=== PATIENT | male | born 1955 | race Caucasian/White ===

== ENCOUNTER → 2016-05-30 | Outpatient (CLI) | payer OTHER ==
[~2016-05-30] MED LIST: ASPI-232 PO; BIOT1CAP8 PO; CEPH500C2 PO; CHOL20005 PO; CHRO1TAB2 PO; CILO100T PO; CIPR1TAB11 PO; CLB/200 PO; CLOP1TAB5 PO; CLX20 PO; DOCU-94 PO; FAMO20TA9 PO; FURO40TA3 PO; HYDR-5688 PO; INSDGI SC; ISOS30TA35 PO; MAGN500T3 PO; METO-551 PO; MULT-351 PO; MULT60CA PO; NTRGSL/4 UT; NVLGI SC; OMEG500C2 PO; SIMV80TA2 PO; TRAM-453 PO; VALS40TA2 PO
[2016-05-30 14:41] LABS: BASO % 0.5 %; BASO ABS # 0.03 K/uL (0-0.2); COMPLETE YES; EOS % 2.7 %; HEMATOCRIT 33.7 % (42-52); IG% 0.2 %; LYMPH % 29.6 %; LYMPH ABS # 1.72 K/uL (1.2-3.4); MEAN CELL VOLUME 88.7 fL (80-100); MEAN CORPUSCULAR HEMOGLOBIN 31.1 pg (25-34); MEAN PLATELET VOLUME 9.7 fL (7.4-10.4); MONO % 9.6 %; NEUT % 57.4 %; PLATELET COUNT 202 K/uL (130-400); WHITE BLOOD COUNT 5.82 K/uL (4.8-10.8)
[2016-05-30 14:55] LABS: ALT/SGPT 36 U/L (12-78); BLOOD UREA NITROGEN 20 mg/dl (7-18); BUN/CREATININE RATIO 14.1 (10-20); CALCIUM 9.2 mg/dl (8.5-10.1); CARBON DIOXIDE 24 mmol/L (21-32); CHLORIDE 108 mmol/L (98-107); CHOLESTEROL 128 mg/dl (0-200); GLUCOSE 145 mg/dl (70-99); MAGNESIUM 1.8 mg/dl (1.8-2.4); POTASSIUM 4.4 mmol/L (3.5-5.1); SODIUM 143 mmol/L (136-145)
[2016-05-30 15:12] LABS: ALB/GLOB RATIO 1.1 (0.9-2); ALKALINE PHOSPHATASE 125 U/L (45-117); AST/SGOT 19 U/L (15-37); CHOLESTEROL/HDL RATIO 2.5; HDL CHOLESTEROL 51 mg/dl; LDL CHOLESTEROL CALCULATED 60 mg/dl; TRIGLYCERIDES 83 mg/dl (0-150); VERY LOW DENSITY LIPOPROT CALC 17 mg/dl
[2016-05-30 15:16] LABS: URINE PROTIEN/CREAT RATIO 0.7 (0-0.2); URINE TOTAL PROTEIN 78.7 mg/dl (0-11.9)
[2016-05-31 06:33] LABS: ESTIMATED AVERAGE GLUCOSE 131 mg/dl; HA1C FLAG Normal (Normal)
--- NOTE | 2016-06-03 12:54 | CODING QUERY MEDICAL NECESSITY ---
SUPPORTING DIAGNOSIS NEEDED Dr. Bradshaw, A supporting diagnosis is required for the test/procedure performed on this patient in order for us to be reimbursed by the patient's insurance. Please provide a supporting diagnosis for the following test/procedure listed below next to the test name along with your signature. *If there is no additional diagnosis for this patient that would support the following test/procedure please document that below next to the test/procedure. Test(s)/Procedure(s) that require a supporting diagnosis: * ([id number]) B12 VITAMIN LEVEL DIAGNOSIS: DATE OF SERVICE: 05/30/16 Provider Signature: Date: Thank you Herbert Wynn [facility] Information Management Once completed, please kindly fax back to [phone] For questions please call [phone]
== END | disposition home or self-care (01) ==
LOC: C.LAB1850 13:27
PROVIDERS: ATTEND Internal Medicine
DX: E11.8 Type 2 diabetes mellitus with unspecified complications (principal); N18.3 Chronic kidney disease, stage 3 (moderate); Z12.5 Encounter for screening for malignant neoplasm of prostate; Z11.59 Encounter for screening for other viral diseases; E55.9 Vitamin D deficiency, unspecified; D64.9 Anemia, unspecified; R53.83 Other fatigue

== ENCOUNTER → 2016-06-21 | Day surgery (SDC) | payer OTHER ==
[2016-06-13 13:58] VITALS: Ht 175.3 cm; Wt 129.6 kg
[~2016-06-21] VITALS: Ht 175.3 cm; Wt 129.6 kg
[~2016-06-21] MED LIST changes: -ASPI-232 PO; +ATROPINE SULFATE 0.1 MG/ML 5ML SYR IV PRN; +CEFAZOLIN 3000 MG/65 ML D5W IV SCH; -CILO100T PO; -CLOP1TAB5 PO; +EpHEDrine SULFATE INJ 50 MG/ML AMP IV PRN; +FENTANYL CITRATE INJ 50 MCG/1 ML 2 ML VIAL IV PRN; +FENTANYL CITRATE INJ 50 MCG/1 ML 2 ML VIAL ONE; +HYDROCODONE/ACETAMOPHEN 5/325MG TAB PO PRN; +LACTATED RINGER'S 1000ML 1,000 ML IV SCH; +LIDOCAINE HCL 1% 20 ML VIAL ONE; +LIDOCAINE HCL 2% 2 ML VIAL (20MG/ML) ONE; +MIDAZOLAM HCL 1 MG/ML 2ML VIAL ONE; -OMEG500C2 PO; +ONDANSETRON INJ 2 MG/ML 2 ML VIAL IV PRN; +PROPOFOL IV EMULSION 10 MG/ML 20 ML VIAL IV ONE; +SODIUM CHLORIDE 0.9% 1000ML 1,000 ML IV SCH
--- NOTE | 2016-06-21 07:53 | History & Physical Bridge - SC ---
H&P Re-Evaluation Bridge Note: I have examined the patient, reviewed the History & Physical and in the interval since the performance of the History & Physical I have noted the following changes of clinical significance: No changes noted
--- NOTE | 2016-06-21 08:42 | [facility] Post Operative Brief Note ---
Immediate Operative Summary Operative Date Jun 21, 2016. Pre-Operative Diagnosis Sebaceous cyst back (3cm) Post-Operative Diagnosis same Procedure(s) Performed Back, Sebaceous Cyst (3CM) Excision Surgeon Dr Mcintosh Boiler Welder Surgeon(s) 0 Estimated Blood Loss 15 ml Findings scar tissue from prior inflammation Specimens A. Sebaceous cyst (3 cm) back Anesthesia local/ sedation Complication(s) None Disposition Recovery Room / PACU
--- NOTE | 2016-06-21 08:44 | Discharge Instructions-SurgCtr ---
Discharge Instructions Visit Reason for Visit: 3 Cm Sebaceous Cyst - Back Discharge Discharge Diagnosis / Problem: princess cyst Discharge Goals Goal(s): Decrease discomfort, Improve function Medications Stopped Medications Name(s): PLAVIX, ASPIRIN, CILOSTAZOL, FISH OIL. LAST DOSES A WEEK AGO. Activity Recommendations Activity Limitations: as noted below Lifting Limitations: no more than 25 pounds Exercise/Sports Limitations: until after follow-up appointment May Resume Sexual Activity: when tolerated Shower/Bathe: tomorrow Driving or Machine Use: resume 1 day after discharge SPECIAL CARE INSTRUCTIONS: * Cover incisions and change daily for comfort/drainage. * May use ibuprofen for pain as tolerated. * Expect some swelling and bruising. Call your doctor if: * Temperature above 101 degrees * Pain not relieved by pain medicine ordered * There is increased drainage or redness from any incision * You have any unanswered questions or concerns [phone]. FOLLOW UP VISIT: If not already scheduled, please call the office for a follow-up visit. for next week- some suture removal OFFICE PHONE NUMBER: Dr. Mcintosh Office Anesthesia . Post Anesthesia Instructions: If you have had General Anesthesia or IV Sedation: * Do not drive today. * Resume driving when surgeon permits. * Do not make important decisions or sign legal documents today. * Call surgeon for: 1. Temperature elevations greater than 101 degrees F. 2. Uncontrollable pain. 3. Excessive bleeding. 4. Persistent nausea and vomiting. 5. Medication intolerance (nausea, vomiting or rash). * For nausea and vomiting use only clear liquids such as: tea, soda, bouillon until nausea subsides, then gradually increase diet as tolerated. * If you have any concerns or questions, call your surgeon's office. If physician is unavailable and it is an emergency, call 911 or go to the nearest emergency room. . Diet Recommendations Home Diet: resume previous diet Procedures Procedures Performed: Back, Sebaceous Cyst (3CM) Excision Pending Studies Studies pending at discharge: no Medical Emergencies . Who to Call and When: Medical Emergencies: If at any time you feel your situation is an emergency, please call 911 immediately. . Non-Emergent Contact Non-Emergency issues call your: Primary Care Provider, Surgeon . . "Provider Documentation" section prepared by Sergey Mcintosh.
[2016-06-21 08:45] VITALS: TEMP 36.6
--- NOTE | 2016-06-21 08:59 | OPERATIVE REPORT ---
DATE OF OPERATION: 06/21/2016 NAME OF OPERATION: Excision of 3 cm sebaceous cyst from the back. PREOPERATIVE DIAGNOSIS: Sebaceous cyst. POSTOPERATIVE DIAGNOSIS: Same. STAFF SURGEON: Dr. Mcintosh. ANESTHESIA: Local with sedation. PROCEDURE: The patient was brought in the operating room and placed on the operating table in the prone position. His back was prepped and draped in usual fashion around a sebaceous cyst. 1% plain lidocaine was used to anesthetize the skin and subcutaneous tissue. An elliptical incision was made approximately 4-5 cm around this area, removing an ellipse of skin and then the cyst was excised from the deep tissue. There was significant scar tissue from prior inflammation. After appropriate hemostasis, the deep tissue was reapproximated using 2-0 chromic catgut suture, then the skin reapproximated using 3-0 nylon suture. Dressing applied and the patient transferred to recovery room in stable condition. I attest to the content of the Intraoperative Record and any orders documented therein. Any exceptio ns are noted below.
[2016-06-21 09:04] VITALS: BP 149/82; PULSE 62; O2SAT 98
--- NOTE | 2016-06-21 09:10 | Anesthesia Progress Nt - [facility] ---
Anesthesia Post Op Note Date & Time Jun 21, 2016 at 09:10 Vital Signs Pain Intensity: 0 Vital Signs Past 12 Hours Date Time Temp Pulse Resp B/P Pulse Ox O2 Delivery O2 Flow Rate FiO2 06/21/16 09:04 62 18 149/82 98 Room Air 06/21/16 08:45 36.6 67 16 121/73 96 Room Air 06/21/16 07:11 36.9 67 18 172/89 97 Room Air Notes Mental Status: alert / awake / arousable, participated in evaluation Pt Amnestic to Procedure: Yes Nausea / Vomiting: adequately controlled Pain: adequately controlled Airway Patency, RR, SpO2: stable & adequate BP & HR: stable & adequate Hydration State: stable & adequate Anesthetic Complications: no major complications apparent
== END | disposition home or self-care (01) ==
LOC: X.SURG 06:56
PROVIDERS: ATTEND Surgery
DX: L72.3 Sebaceous cyst (principal); E11.9 Type 2 diabetes mellitus without complications

== ENCOUNTER → 2016-06-24 | Outpatient (CLI) | payer OTHER ==
[~2016-06-24] VITALS: Ht 175.3 cm; Wt 131.4 kg
[~2016-06-24] MED LIST changes: -ATROPINE SULFATE 0.1 MG/ML 5ML SYR IV PRN; -CEFAZOLIN 3000 MG/65 ML D5W IV SCH; -EpHEDrine SULFATE INJ 50 MG/ML AMP IV PRN; -FENTANYL CITRATE INJ 50 MCG/1 ML 2 ML VIAL IV PRN; -FENTANYL CITRATE INJ 50 MCG/1 ML 2 ML VIAL ONE; -HYDROCODONE/ACETAMOPHEN 5/325MG TAB PO PRN; -LACTATED RINGER'S 1000ML 1,000 ML IV SCH; -LIDOCAINE HCL 1% 20 ML VIAL ONE; -LIDOCAINE HCL 2% 2 ML VIAL (20MG/ML) ONE; -MIDAZOLAM HCL 1 MG/ML 2ML VIAL ONE; -ONDANSETRON INJ 2 MG/ML 2 ML VIAL IV PRN; -PROPOFOL IV EMULSION 10 MG/ML 20 ML VIAL IV ONE; -SODIUM CHLORIDE 0.9% 1000ML 1,000 ML IV SCH
[2016-06-24 15:35] VITALS: BP 156/95; PULSE 65; Ht 175.3 cm; Wt 131.4 kg
== END | disposition home or self-care (01) ==
LOC: C.NEUR 13:49
PROVIDERS: ATTEND Internal Medicine Pulmonary Disease
DX: G47.31 Primary central sleep apnea (principal); G47.33 Obstructive sleep apnea (adult) (pediatric)

== ENCOUNTER → 2016-08-26 | Outpatient (CLI) | payer OTHER ==
[~2016-08-26] MED LIST changes: -CEPH500C2 PO; -CIPR1TAB11 PO
[2016-08-26 16:57] LABS: BASO % 0.7 %; BASO ABS # 0.04 K/uL (0-0.2); COMPLETE YES; EOS % 2.8 %; HEMATOCRIT 36.7 % (42-52); LYMPH % 29.4 %; LYMPH ABS # 1.57 K/uL (1.2-3.4); MEAN CORPUSCULAR HEMOGLOBIN 30.1 pg (25-34); MEAN CORPUSCULAR HGB CONC 33.5 g/dl (32-36); MEAN PLATELET VOLUME 9.8 fL (7.4-10.4); MONO % 9.7 %; NEUT % 57.4 %; PLATELET COUNT 198 K/uL (130-400); RED BLOOD COUNT 4.08 M/uL (4.7-6.1); WHITE BLOOD COUNT 5.34 K/uL (4.8-10.8)
[2016-08-26 16:59] LABS: URINE APPEARANCE CLEAR (CLEAR); URINE BILIRUBIN NEG (NEG); URINE COLOR YELLOW; URINE NITRITE NEG (NEG); URINE SPECIFIC GRAVITY 1.013 (1.000-1.030); UROBILINOGEN NEG (NEG); ZZUR CULT IF INDIC CLEAN CATCH NO
[2016-08-26 17:01] LABS: MANUAL MICROSCOPIC REQUIRED? NO; REVIEW REQ? NO
[2016-08-26 17:08] LABS: BLOOD UREA NITROGEN 28 mg/dl (7-18); CALCIUM 8.6 mg/dl (8.5-10.1); CARBON DIOXIDE 25 mmol/L (21-32); CHLORIDE 111 mmol/L (98-107); GLUCOSE 191 mg/dl (70-99); MAGNESIUM 2.2 mg/dl (1.8-2.4); POTASSIUM 4.7 mmol/L (3.5-5.1); SODIUM 145 mmol/L (136-145)
[2016-08-26 17:23] LABS: URINE PROTIEN/CREAT RATIO 1.1 (0-0.2); URINE TOTAL PROTEIN 62.2 mg/dl (0-11.9)
== END | disposition home or self-care (01) ==
LOC: C.LAB1850 14:34
PROVIDERS: ATTEND Internal Medicine Nephrology
DX: N18.3 Chronic kidney disease, stage 3 (moderate) (principal)

== ENCOUNTER → 2016-12-16 | Outpatient (CLI) | payer OTHER ==
[2016-12-17 08:13] LABS: ESTIMATED AVERAGE GLUCOSE 128 mg/dl; HA1C FLAG Normal (Normal)
== END | disposition home or self-care (01) ==
LOC: C.LAB1850 15:13
PROVIDERS: ATTEND Physician Assistant
DX: E11.8 Type 2 diabetes mellitus with unspecified complications (principal)

== ENCOUNTER → 2017-01-18 | Outpatient (CLI) | payer OTHER ==
[~2017-01-18] MED LIST changes: -HYDR-5688 PO
[2017-01-18 15:49] LABS: CHOLESTEROL/HDL RATIO 2.9; THYROID STIMULATING HORMONE 1.99 uIu/ml (0.300-4.500)
== END | disposition home or self-care (01) ==
LOC: C.LAB1850 13:42
PROVIDERS: ATTEND Physician Assistant
DX: E11.8 Type 2 diabetes mellitus with unspecified complications (principal)

== ENCOUNTER → 2017-02-28 | Outpatient (CLI) | payer OTHER ==
[2017-02-28 16:40] LABS: BASO % 0.6 %; BASO ABS # 0.03 K/uL (0-0.2); COMPLETE YES; EOS % 3.9 %; HEMATOCRIT 37.8 % (42-52); IG% 0.2 %; LYMPH % 34.9 %; LYMPH ABS # 1.89 K/uL (1.2-3.4); MEAN CELL VOLUME 90.2 fL (80-100); MEAN CORPUSCULAR HEMOGLOBIN 30.3 pg (25-34); MEAN CORPUSCULAR HGB CONC 33.6 g/dl (32-36); MEAN PLATELET VOLUME 9.7 fL (7.4-10.4); MONO % 10.2 %; NEUT % 50.2 %; PLATELET COUNT 218 K/uL (130-400); RED BLOOD COUNT 4.19 M/uL (4.7-6.1); WHITE BLOOD COUNT 5.41 K/uL (4.8-10.8)
[2017-02-28 17:15] LABS: BLOOD UREA NITROGEN 17 mg/dl (7-18); CARBON DIOXIDE 26 mmol/L (21-32); CHLORIDE 108 mmol/L (98-107); CREATININE 1.56 mg/dl (0.60-1.40); GLUCOSE 113 mg/dl (70-99); MAGNESIUM 2.1 mg/dl (1.8-2.4); POTASSIUM 4.5 mmol/L (3.5-5.1); SODIUM 142 mmol/L (136-145)
[2017-02-28 17:16] LABS: PHOSPHORUS 3.3 mg/dl (2.5-4.9)
[2017-02-28 17:30] LABS: URINE APPEARANCE CLEAR (CLEAR); URINE BILIRUBIN NEG (NEG); URINE COLOR YELLOW; URINE EPITHELIAL CELL AUTO 0-5 /lpf (0-5); URINE NITRITE NEG (NEG); URINE SPECIFIC GRAVITY 1.016 (1.000-1.030); UROBILINOGEN NEG (NEG); ZZUR CULT IF INDIC CLEAN CATCH NO
[2017-02-28 17:34] LABS: MANUAL MICROSCOPIC REQUIRED? NO; REVIEW REQ? NO
[2017-02-28 17:42] LABS: URINE PROTIEN/CREAT RATIO 0.6 (0-0.2); URINE TOTAL PROTEIN 76.7 mg/dl (0-11.9)
== END | disposition home or self-care (01) ==
LOC: C.LAB1850 15:47
PROVIDERS: ATTEND Internal Medicine Nephrology
DX: N18.3 Chronic kidney disease, stage 3 (moderate) (principal)

== ENCOUNTER 2017-04-15 08:53 | Inpatient (IN) | payer OTHER ==
[~2017-04-15] VITALS: Ht 175.3 cm; Wt 132.0 kg
[2017-04-15] MEDS ORDERED: SODIUM CHLORIDE 0.9% 500ML 500 ML IV STA (09:16)
[2017-04-15] MEDS ORDERED: ACETAMINOPHEN IV 100 ML IV STA (09:16)
[2017-04-15] MEDS ORDERED: MoRPHine SULFATE 4 MG/ML 1 ML CARP\\VIAL IV STA ×2 (09:16→11:52)
[2017-04-15] MEDS ORDERED: LIDOCAINE/EPINEPHRINE 1% 20 ML VIAL INFIL ONE (09:30)
[2017-04-15] MEDS ORDERED: OPTIRAY 320 IV PRN (09:30)
--- NOTE | 2017-04-15 09:41 | EMERGENCY ROOM VISIT NOTE ---
History First contact with patient: 09:05 Chief Complaint: INFECTION Stated Complaint: ABCESS X2 History of Present Illness The patient is a 62 year old male who presents to the Emergency Room with complaints of abscess on his back that started 3-4 days ago. Patient states that he has had an abscess on his upper back approximately 6 weeks ago that was drained and treated by his PCP, given 10 days of Augmentin which he completed. He states that this cleared up well, however the abscess return to the same location, and now he also has a large area of swelling, redness, and pain on his lower back. The abscess on his upper back has been draining today and he has also had fevers of 102.5 and chills starting today. He does also feel that his heartbeat has been faster than usual. He has not taken anything for pain today, but states he does take tramadol 3 times a day for chronic pain. He is a diabetic on insulin. He denies any known history of MRSA and does not think that any wound cultures were taken from his previous abscess 6 weeks ago. He denies any headaches, vision changes, neck pain, chest pain, shortness of breath , abdominal pain, diarrhea or constipation, vomiting, dysuria or urinary frequency, or rash. Review of Systems A complete 10 point review of systems was reviewed with the patient with pertinent positives and negatives as per history of present illness. All else were negative. Past Medical/Surgical History Medical Problems: (1) Allergy To Latex (2) Aortocoronary Bypass (3) Chronic Kidney Disease, Unspecified (4) Circulatory Disease Nos (5) Coronary Atherosclerosis Of [place] Coronary Vessel (6) fever, multiple abscess, possible uncontrtolled DM (7) Hx-Venous Thrombosis&Embolism (8) Hypertension Nos (9) Old Myocardial Infarct (10) Sebaceous Cyst (11) Vitamin D Deficiency Nos Surgical Problems: (1) Stented coronary artery Social History Smoking Status: Former Smoker Drug Use: none Marital Status: other Housing Status: unknown Occupation Status: disabled Current/Historical Medications Scheduled Aspirin (Aspirin 81), 81 MG PO DAILY Atorvastatin (Lipitor), 80 MG PO DAILY Biotin (Biotin), 1 CAP PO DAILY AFTERNOON Celecoxib (CeleBREX), 200 MG PO QAM Cholecalciferol (Vitamin D3), 2,000 UNITS PO DAILY AFTERNOON Chromium (Chromium), 2,000 MCG PO DAILY AFTERNOON Cilostazol (Pletal), 100 MG PO BID Citalopram (Citalopram Hydrobromide), 20 MG PO QAM Clopidogrel (Plavix), 75 MG PO QAM Famotidine (Pepcid), 20 MG PO BID Furosemide (Lasix), 40 MG PO QAM Insulin Aspart (Novolog Flexpen), 1 DOSE SQ UD Insulin Detemir (Levemir Flextouch), 35 UNITS SQ QAM Insulin Detemir (Levemir Flextouch), 40 UNITS SQ QPM Isosorbide Mononitrate Ext Rel (Imdur Ext Rel), 60 MG PO QAM Magnesium Gluconate (Magnesium Gluconate), 500 MG PO TID Metoprolol Tartrate (Lopressor), 50 MG PO BID Multiple Vitamin (Multi Vitamin Mens), 1 TAB PO QAM Multiple Vitamins W/ Minerals (Preservision Areds 2), 1 CAP PO BID Nitroglycerin (Nitrostat), 0.4 MG UT PRN [place]-3 Fatty Acids (Fish Oil 1200 mg), 1,200 MG PO BID Spironolactone (Aldactone), 25 MG PO DAILY Tramadol Hcl (Ultram), 50 MG PO Q8H Valsartan (Diovan), 40 MG PO DAILY AFTERNOON Scheduled PRN Docusate Sodium (Colace), 1 CAP PO DAILY PRN for Constipation Allergies Reviewed in chart Physical Exam Vital Signs Date Time Temp Pulse Resp B/P (MAP) Pulse Ox O2 Delivery O2 Flow Rate FiO2 04/15/17 13:00 96 Room Air 04/15/17 11:42 75 04/15/17 11:19 75 20 134/70 96 Room Air 04/15/17 09:00 37.4 92 20 168/96 98 Room Air Physical Exam CONSTITUTIONAL: Pleasant and cooperative. No acute distress, nontoxic appearing , however patient is noted to be slightly pale and diaphoretic. Mildly dehydrated. Alert and oriented X 4 with normal affect. HEENT: Normocephalic, atraumatic. Pupils equal, round and reactive to light, EOMI. TMs normal. Pharynx normal. Tacky mucous membranes. NECK: Supple, full active range of motion without discomfort. RESPIRATORY: Clear to auscultation bilaterally with no wheezing, crackles, rhonchi or stridor. Equal expansion bilaterally. CARDIOVASCULAR: Regular rate and rhythm with no murmurs, rubs or gallops. Normal peripheral perfusion. No edema. GASTROINTESTINAL: Soft, nontender, nondistended, obese. Bowel sounds present in all quadrants. MUSCULOSKELETAL: Full range of motion of all joints without discomfort. INTEGUMENTARY: There is an area of erythema, warmth, and tenderness of the mid upper back between shoulder blades, indurated with central fluctuance, purulent drainage noted. There is a large area of erythema, warmth and very tender to the left flank area, indurated but no pointing or fluctuance. NEUROLOGIC: Cranial nerves II-XII grossly intact. No focal neurologic deficits noted. Medical Decision & Procedures ER Provider Diagnostic Interpretation: CT OF THE ABDOMEN AND PELVIS WITH CONTRAST CLINICAL HISTORY: Left flank/back abscess and cellulitis. COMPARISON STUDY: Renal ultrasound May 12, 2015. TECHNIQUE: Following IV administration of 121 mL of Optiray-320, axial images of the abdomen and pelvis were obtained from the lung bases to the proximal femurs. Images were reviewed in the axial, sagittal, and coronal planes. IV contrast was administered without complication. A dose lowering technique was utilized adhering to the principles of ALARA. CT DOSE: 1738.09 mGy.cm FINDINGS: Note is made of a 4.1 x 1.8 cm subcutaneous fluid collection with peripheral enhancement within the left lower back/left flank with moderate adjacent infiltration and associated skin thickening. There is an additional smaller right flank subcutaneous fluid collection shown on axial image 10 of 511 that measures 1.6 cm. This has minimal peripheral enhancement. There is mild multifocal subcutaneous infiltration of the left anterior abdominal wall without associated fluid collection. The liver, spleen, adrenal glands, kidneys and pancreas are unremarkable. There is no biliary or pancreatic ductal dilatation. There is no hydronephrosis. Caliber and wall thickness of small and large bowel are normal. The appendix is normal. There is extensive atherosclerotic plaque of the abdominal aorta which is normal in caliber. Note is made of patent bilateral iliac vein stents. No suspicious osseous lesions are present. IMPRESSION: 1. 4.1 x 1.8 cm subcutaneous fluid collection of the left flank/lower back. This is consistent with an abscess with associated cellulitis. No soft tissue gas. 2. Additional small 1.6 cm suspected subcutaneous abscess of the right flank. 3. Mild multifocal subcutaneous infiltration of the left anterior abdominal wall without associated fluid collection which is nonspecific. Laboratory Results 04/15/17 09:55 Red Blood Count 3.64, Mean Corpuscular Volume 90.7, Mean Corpuscular Hemoglobin 31.6, Mean Corpuscular Hemoglobin Concent 34.8, Mean Platelet Volume 9.8, Neutrophils (%) (Auto) 70.6, Lymphocytes (%) (Auto) 16.2, Monocytes (%) (Auto) 11.0, Eosinophils (%) (Auto) 1.8, Basophils (%) (Auto) 0.3, Neutrophils # (Auto ) 5.02, Lymphocytes # (Auto) 1.15, Monocytes # (Auto) 0.78, Eosinophils # (Auto ) 0.13, Basophils # (Auto) 0.02 04/15/17 09:55 Test 04/15/17 09:55 04/15/17 10:03 04/15/17 10:04 04/15/17 11:30 White Blood Count 7.11 K/uL (4.8-10.8) Red Blood Count 3.64 M/uL (4.7-6.1) Hemoglobin 11.5 g/dL (14.0-18.0) Hematocrit 33.0 % (42-52) Mean Corpuscular Volume 90.7 fL (80-100) Mean Corpuscular Hemoglobin 31.6 pg (25-34) Mean Corpuscular Hemoglobin Concent 34.8 g/dl (32-36) Platelet Count 165 K/uL (130-400) Mean Platelet Volume 9.8 fL (7.4-10.4) Neutrophils (%) (Auto) 70.6 % Lymphocytes (%) (Auto) 16.2 % Monocytes (%) (Auto) 11.0 % Eosinophils (%) (Auto) 1.8 % Basophils (%) (Auto) 0.3 % Neutrophils # (Auto) 5.02 K/uL (1.4-6.5) Lymphocytes # (Auto) 1.15 K/uL (1.2-3.4) Monocytes # (Auto) 0.78 K/uL (0.11-0.59) Eosinophils # (Auto) 0.13 K/uL (0-0.5) Basophils # (Auto) 0.02 K/uL (0-0.2) RDW Standard Deviation 45.7 fL (36.4-46.3) RDW Coefficient of Variation 13.8 % (11.5-14.5) Immature Granulocyte % (Auto) 0.1 % Immature Granulocyte # (Auto) 0.01 K/uL (0.00-0.02) Erythrocyte Sedimentation Rate 17 mm/hr (0-14) Est Creatinine Clear Calc Drug Dose 79.4 ml/min Estimated GFR () 67.8 Estimated GFR (Non- 58.5 BUN/Creatinine Ratio 20.6 (10-20) Calcium Level 8.6 mg/dl (8.5-10.1) Total Bilirubin 0.4 mg/dl (0.2-1) Aspartate Amino Transf (AST/SGOT) 13 U/L (15-37) Alanine Aminotransferase (ALT/SGPT) 24 U/L (12-78) Alkaline Phosphatase 117 U/L (45-117) C-Reactive Protein 2.72 mg/dl (0-0.29) Total Protein 6.9 gm/dl (6.4-8.2) Albumin 3.2 gm/dl (3.4-5.0) Globulin 3.7 gm/dl (2.5-4.0) Albumin/Globulin Ratio 0.9 (0.9-2) Thyroid Stimulating Hormone (TSH) 1.790 uIu/ml (0.300-4.500) Bedside Lactic Acid Venous 1.89 mmol/L (0.90-1.70) Bedside Hemoglobin 10.5 g/dl (14.0-18.0) Bedside Hematocrit 31 % (42-52) Bedside Sodium 139 mEq/L (135-144) Bedside Potassium 4.3 mEq/L (3.3-5.0) Bedside Chloride 107 mEq/L (101-112) Bedside Total CO2 23 mEq/l (24-31) Anion Gap 14.0 mmol/L (16-25) Bedside Blood Urea Nitrogen 28 mg/dl (7-18) Bedside Creatinine 1.3 mg/dl (0.6-1.3) Bedside Glucose (other) 212 mg/dl (70-99) Bedside Ionized Calcium ([place]) 1.11 mmol/l (1.12-1.32) Urine Color YELLOW Urine Appearance CLEAR (CLEAR) Urine pH 5.0 (4.5-7.5) Urine Specific [place] 1.038 (1.000-1.030) Urine Protein 3+ (NEG) Urine Glucose (UA) NEG (NEG) Urine Ketones NEG (NEG) Urine Occult Blood NEG (NEG) Urine Nitrite NEG (NEG) Urine Bilirubin NEG (NEG) Urine Urobilinogen NEG (NEG) Urine Leukocyte Esterase NEG (NEG) Urine WBC (Auto) 0 /hpf (0-5) Urine RBC (Auto) 0-4 /hpf (0-4) Urine Hyaline Casts (Auto) 1-5 /lpf (0-5) Urine Epithelial Cells (Auto) 0-5 /lpf (0-5) Urine Bacteria (Auto) NEG (NEG) Medications Administered Medications (Trade) Dose Ordered Sig/Zeeshan Route Start Time Stop Time Status Last Admin Dose Admin Sodium Chloride 500 ml @ 999 mls/hr Q31M STAT IV 04/15/17 09:16 04/15/17 09:46 DC 04/15/17 10:31 999 MLS/HR Acetaminophen 100 ml @ 400 mls/hr NOW STAT IV 04/15/17 09:16 04/15/17 09:30 DC 04/15/17 10:32 400 MLS/HR Morphine Sulfate (MoRPHine SULFATE INJ) 4 mg NOW STAT IV 04/15/17 09:16 04/15/17 09:24 DC 04/15/17 10:31 4 MG Lidocaine/ Epinephrine (Xylocaine/Epine 1% Inj) 20 ml ONE ONCE INFIL 04/15/17 09:30 04/15/17 09:31 DC 04/15/17 10:32 20 ML Diphenhydramine HCl (Benadryl Inj) 25 mg NOW STAT IV 04/15/17 10:28 04/15/17 10:29 DC 04/15/17 10:39 25 MG Morphine Sulfate (MoRPHine SULFATE INJ) 4 mg NOW STAT IV 04/15/17 11:52 04/15/17 11:53 DC 04/15/17 11:59 4 MG Cefepime HCl 1000 mg/Dextrose 111 ml @ 200 mls/hr NOW STAT IV 04/15/17 12:36 04/15/17 13:09 DC 04/15/17 13:09 200 MLS/HR Vancomycin HCl 2750 mg/Sodium Chloride 555 ml @ 200 mls/hr ONE STAT IV 04/15/17 12:36 04/15/17 15:22 DC 04/15/17 13:24 200 MLS/HR Procedure Incision and Drainage: Abscess on mid upper back and left lower back I discussed risk and benefits of the procedure with the patient, and obtained verbal consent from the patient to perform the procedure. Timeout was performed. 2 abscesses being drained, one on the middle upper back and one on the left lower back. Using chlorhexidine scrub, the areas were cleansed well and allowed to dry (patient has Betadine allergy). The areas were locally anesthetized with 1% lidocaine and epinephrine. Once proper anesthesia was achieved, an incision was made over the most fluctuant area of the abscess with a #11 blade, with large amounts of purulent and bloody drainage expressed. Wound cultures were collected and properly labeled from each abscess. The abscess cavities were probed with hemostats and loculated areas were broken up, with more purulent material expressed. The abscess cavities were flushed with sterile saline, and an iodoform gauze drain with bacitracin coating was inserted into each wound. Sterile dressings were applied to each of the wounds. The patient tolerated the procedure well, with hemostasis achieved. There were no known complications. ECG Indication: diaphoresis Rate (beats per minute): 81 Rhythm: normal sinus Findings: left axis deviation, other (LVH) Change: no significant change (compared to EKG from 06/14/2016) Medical Decision CC: Patient presenting with complaint of abscess/cellulitis and fevers Interpretation of Labs: No leukocytosis, no anemia, hypoglycemia, no other significantly delayed abnormalities, renal function upper limits of normal, but appears better than his baseline, normal liver enzymes. Mildly elevated lactic acid level. UA shows 3+ protein, otherwise negative for infection. Differential Diagnosis: Includes, but not limited to cellulitis, abscess, MRSA, bacteremia, sepsis, intra-abdominal abscess or deep space infection, dehydration , among others. Medication Reconciliation: I attest that I have personally reviewed the patient' s current medication list. Vital signs review: I reviewed the patient's vital signs and interpret them as follows: T: Febrile (38.0 by my check); BP: Hypertensive; HR: Within normal limits; RR: Within normal limits; Pulse Ox: Within normal limits on room air. Blood pressure screening: The patient was found to have an elevated blood pressure and was referred to their primary doctor for recheck and further treatment. Summary: Patient was evaluated at bedside, history and physical exam performed. He is alert and oriented, pleasant and in no acute distress, sitting on the stretcher. Patient was asked to change into a gown for exam. There is area of abscess and surrounding cellulitis on the upper mid back between shoulder blades, fluctuant with purulent drainage noted. There is a large area of induration and erythema noted on the left lower back/ flank area, very tender to palpation, no drainage noted. Patient is noted to be febrile on my exam, given the spreading abscess of multiple locations, I'm concerned for possible bacteremia, MRSA. Patient is an insulin-dependent diabetic. Orders were placed at bedside for labs, UA, lactic acid and blood cultures 2, IV fluid bolus for hydration, IV Tylenol for fever, IV morphine for pain, EKG, CT abdomen/pelvis with IV contrast to evaluate for deep tracking cellulitis/ abscess of the left flank. Patient discussed with Dr. Tran, who agrees with my assessment and plan. Labs reviewed as above, mildly elevated lactic acid level. EKG sinus rhythm with no acute ischemic changes. CT imaging shows a large abscess of the left flank with soft tissue stranding concerning for spreading cellulitis him as well as a third abscess that is not drainable. I&D performed as above with large amount of purulent, foul-smelling drainage expressed. Given patient's multiple abscesses, with fevers and chills, diaphoretic, and is an insulin dependent diabetic, I feel the patient warrants IV antibiotics and close observation. I spoke on the phone with Dr. Haines, hospitalist, who agrees to evaluate patient for admission. Patient reassessed multiple times throughout ED stay, he reports he is feeling somewhat better after pain medications. Vitals remained stable. Patient was updated on all results and plan for admission, he is agreeable to this plan. Patient was stable at time of admission. Head Trauma GCS Score: 15 Medication Reconcilliation Current Medication List: was personally reviewed by me Blood Pressure Screening Patient's blood pressure: Elevated blood pressure (patient being admitted, will defer to hospitalist for further management) Impression Primary Impression: Cellulitis of lower back Additional Impression: Abscess of lower back Departure Information Dispostion Admitted as an inpatient Condition FAIR Referrals RV. Short MD (PCP) Patient Instructions My [facility] Problem Qualifiers
[2017-04-15 10:09] LABS: BASO % 0.3 %; BASO ABS # 0.02 K/uL (0-0.2); COMPLETE YES; EOS % 1.8 %; IG% 0.1 %; LYMPH % 16.2 %; LYMPH ABS # 1.15 K/uL (1.2-3.4); MEAN CELL VOLUME 90.7 fL (80-100); MEAN CORPUSCULAR HEMOGLOBIN 31.6 pg (25-34); MEAN CORPUSCULAR HGB CONC 34.8 g/dl (32-36); MEAN PLATELET VOLUME 9.8 fL (7.4-10.4); NEUT % 70.6 %; PLATELET COUNT 165 K/uL (130-400); RED BLOOD COUNT 3.64 M/uL (4.7-6.1); WHITE BLOOD COUNT 7.11 K/uL (4.8-10.8)
[2017-04-15 10:20] LABS: BUN/CREATININE RATIO 20.6 (10-20); CALCIUM 8.6 mg/dl (8.5-10.1); CREATININE 1.3 mg/dl (0.60-1.40); POTASSIUM 4.1 mmol/L (3.5-5.1)
[2017-04-15 10:23] LABS: ALB/GLOB RATIO 0.9 (0.9-2)
[2017-04-15] MEDS ORDERED: DiphenhydrAMINE HCL 50 MG/ML VIAL IV STA (10:28)
[2017-04-15] MEDS ORDERED: ATOR-26 PO (10:55)
[2017-04-15] MEDS ORDERED: ASPI-435 PO (10:55)
[2017-04-15] MEDS ORDERED: CILO100T PO (10:56)
[2017-04-15] MEDS ORDERED: CLOP1TAB15 PO (10:57)
[2017-04-15] MEDS ORDERED: OMEG5CAP PO (10:58)
[2017-04-15] MEDS ORDERED: ISOS60TA25 PO (10:59)
[2017-04-15] MEDS ORDERED: INSU3INJ3 SQ (11:00)
[2017-04-15] MEDS ORDERED: LVMIPEN SQ (11:00)
[2017-04-15] MEDS ORDERED: NVLGI/PEN SQ (11:03)
[2017-04-15] MEDS ORDERED: SPIR25TA PO (11:05)
--- NOTE | 2017-04-15 11:23 | DIAGNOSTIC IMAGING REPORT ---
CT OF THE ABDOMEN AND PELVIS WITH CONTRAST CLINICAL HISTORY: Left flank/back abscess and cellulitis. COMPARISON STUDY: Renal ultrasound May 12, 2015. TECHNIQUE: Following IV administration of 121 mL of Optiray-320, axial images of the abdomen and pelvis were obtained from the lung bases to the proximal femurs. Images were reviewed in the axial, sagittal, and coronal planes. IV contrast was administered without complication. A dose lowering technique was utilized adhering to the principles of ALARA. CT DOSE: 1738.09 mGy.cm FINDINGS: Note is made of a 4.1 x 1.8 cm subcutaneous fluid collection with peripheral enhancement within the left lower back/left flank with moderate adjacent infiltration and associated skin thickening. There is an additional smaller right flank subcutaneous fluid collection shown on axial image 10 of 511 that measures 1.6 cm. This has minimal peripheral enhancement. There is mild multifocal subcutaneous infiltration of the left anterior abdominal wall without associated fluid collection. The liver, spleen, adrenal glands, kidneys and pancreas are unremarkable. There is no biliary or pancreatic ductal dilatation. There is no hydronephrosis. Caliber and wall thickness of small and large bowel are normal. The appendix is normal. There is extensive atherosclerotic plaque of the abdominal aorta which is normal in caliber. Note is made of patent bilateral iliac vein stents. No suspicious osseous lesions are present. IMPRESSION: 1. 4.1 x 1.8 cm subcutaneous fluid collection of the left flank/lower back. This is consistent with an abscess with associated cellulitis. No soft tissue gas. 2. Additional small 1.6 cm suspected subcutaneous abscess of the right flank. 3. Mild multifocal subcutaneous infiltration of the left anterior abdominal wall without associated fluid collection which is nonspecific. Electronically signed by: Tomy Campos M.D. 04/15/2017 11:21 AM Dictated Date/Time: 04/15/2017 11:10 AM
--- NOTE | 2017-04-15 11:39 | EMERGENCY ROOM VISIT NOTE ---
ED Visit Note First contact with patient: 09:05 I have personally seen and evaluated the patient with the physician welder assistant. I agree with the diagnostic/management decisions and have personally been involved in these decisions and agree with the diagnosis.
[2017-04-15 11:40] LABS: URINE APPEARANCE CLEAR (CLEAR); URINE BILIRUBIN NEG (NEG); URINE COLOR YELLOW; URINE EPITHELIAL CELL AUTO 0-5 /lpf (0-5); URINE NITRITE NEG (NEG); URINE SPECIFIC GRAVITY 1.038 (1.000-1.030); UROBILINOGEN NEG (NEG); ZZUR CULT IF INDIC CLEAN CATCH NO
[2017-04-15 11:41] LABS: MANUAL MICROSCOPIC REQUIRED? NO; REVIEW REQ? NO
[2017-04-15] MEDS ORDERED: CEFEPIME IV 1,000 MG in DEXTROSE 5% 100ML 100 ML IV STA (12:36)
[2017-04-15] MEDS ORDERED: VANCOMYCIN INJ 2,750 MG in SODIUM CHLORIDE 0.9% 500ML 500 ML IV STA (12:36)
[2017-04-15 13:00] VITALS: BP 168/94; PULSE 84; TEMP 36.8; O2SAT 96; Ht 175.3 cm; Wt 132.0 kg
[2017-04-15] MEDS ORDERED: CONSULT PHARMACY STA (13:01)
[2017-04-15] MEDS ORDERED: MAGNESIUM HYDROXIDE SUSP 30 ML UDC PO PRN (13:15)
[2017-04-15] MEDS ORDERED: GLUCOSE 40% GEL 15 GM TUBE PO PRN (13:15)
[2017-04-15] MEDS ORDERED: NITROGLYCERIN 0.4 MG SL PER TAB CHARGE UT PRN (13:15)
[2017-04-15] MEDS ORDERED: DOCUSATE SODIUM 100 MG CAP PO PRN (13:15)
[2017-04-15] MEDS ORDERED: ALUMINUM/MAGNESIUM/SIMETH (MAALOX MAX) 30 ML UDC PO PRN (13:15)
[2017-04-15] MEDS ORDERED: GLUCAGON FOR INJ 1 MG VIAL SQ PRN (13:15)
[2017-04-15] MEDS ORDERED: GLUCOSE 10 TABS/TUBE PO PRN (13:15)
[2017-04-15] MEDS ORDERED: NON-FORMULARY MEDICATION (Biotin 1 CAP) PO SCH (13:15)
[2017-04-15] MEDS ORDERED: DEXTROSE 50% 50 ML SYR IV PRN (13:15)
[2017-04-15] MEDS ORDERED: POLYETHYLENE (MIRALAX) 17 GM PACK PO PRN (13:15)
[2017-04-15] MEDS ORDERED: ONDANSETRON INJ 2 MG/ML 2 ML VIAL IV PRN (13:15)
[2017-04-15] MEDS ORDERED: CHROMIUM PO SCH (13:15)
[2017-04-15] MEDS ORDERED: ACETAMINOPHEN 325 MG TAB PO PRN (13:15)
[2017-04-15 13:27] LABS: ISTAT CREATININE 1.3 mg/dl (0.6-1.3); ISTAT HEMOGLOBIN 10.5 g/dl (14.0-18.0); ISTAT IONIZED CALCIUM 1.11 mmol/l (1.12-1.32)
--- NOTE | 2017-04-15 13:29 | History and Physical ---
History & Physical Date of Service Apr 15, 2017. History & Physical .fever, multiple abscess, possible uncontrolled DM [id number]
[2017-04-15] MEDS ORDERED: HydrALAZINE HCL 20 MG/ML VIAL IV. PRN (13:30)
[2017-04-15] MEDS ORDERED: VANCOMYCIN CONSULT ACTIVE PRN (13:45)
[2017-04-15] MEDS ORDERED: MAGNESIUM GLUCONATE 500 MG PO SCH (14:00)
[2017-04-15 14:27] LABS: C-REACTIVE PROTEIN 2.72 mg/dl (0-0.29); THYROID STIMULATING HORMONE 1.79 uIu/ml (0.300-4.500)
--- NOTE | 2017-04-15 14:55 | HISTORY & PHYSICAL EXAMINATION ---
DATE OF ADMISSION: 04/15/2017 This is a level 3 inpatient admission, 31 minutes. CHIEF COMPLAINT: Fever and abscess in the upper back. HISTORY OF PRESENT ILLNESS: The patient is a 62-year-old white male with a significant past medical history of CKD, peripheral artery disease, aortocoronary bypass, venous thrombosis, hypertension, history of VA, vitamin D deficiency, CAD, stent, insulin-dependent diabetic, sebaceous cyst, coming to the hospital Emergency Room because of the above chief complaint. The patient reports multiple abscesses started 1 week ago in the upper back and left flank area. There was an abscess in the upper back about 1 month ago which was drained by PCP, was given 10 days of Augmentin. He reported that was cleared well; however, the abscess returned in the same location, and now there was larger areas of redness, swelling and pain in the lower back. The abscess in the upper back has started draining today. He was feeling pain and uncomfortable. There was a fever at home 102.5 and feeling chill. Also associated with racing heart. When I interviewed with the patient, he had 1 abscess drained by ED physicians. He got cefepime and vancomycin IV. The report by nurse temperature was 38, when arriving to the Emergency Room, but was not documented, currently has no fever, no chills. Denied runny nose; denies sore throat; denied cough, sputum, shortness of breath. Denied racing heart or lower extremity swellings. Denied nausea, vomiting, abdominal pain, diarrhea, or constipation; denied dysuria, urgency, or frequencies; denied lower extremity swellings; denied facial droop, slurry speeches or local weakness. Denied anywhere limited range of motion. Skin has several different size abscesses in the upper back and lower back. Otherwise, no rash. PAST MEDICAL HISTORY: Include CAD, VA, stent; CKD, peripheral artery disease, venous thrombosis, hypertension; diabetic, insulin-dependent; vitamin D deficiency. SOCIAL HISTORY: Remote smoker, currently does not smoke, more than 13 months ago; denied alcohol abuse disorder, denied illicit drug abuse. The patient is disabled. ALLERGIES: ALLERGY TO ADHESIVE, BACITRACIN, IODINE, LATEX, NEOMYCIN, PREDNISONE MEDICATIONS: Taking at home include biotin 1 tab p.o. daily, Celebrex 200 mg p.o. q.a.m., vitamin D3 one tab p.o. daily, chromium 2000 mcg p.o. daily in the afternoon, Celexa 20 mg p.o. q.a.m., Pepcid 20 mg p.o. b.i.d., Mentax 40 mg p.o. q.a.m., insulin aspart 35 units subQ before meal and Levemir 30 units in the a.m. and 40 units in the p.m., Imdur 30 mg p.o. q.a.m., magnesium gluconate 1 tab p.o. t.i.d., Lopressor 50 mg p.o. b.i.d., multiple vitamin 1 tab p.o. q.a.m., nitroglycerin 0.4 mg p.o. for the chest pain as needed, Zocor 80 mg p.o. at bedtime, tramadol 50 mg p.o. q. 8 hours p.r.n. for pain, Diovan 40 mg p.o. daily in the afternoon, Colace 1 tab p.o. daily as needed for constipation. REVIEW OF SYSTEMS: Please see HPI, otherwise 14 points organized system review were negative. PHYSICAL EXAMINATION: VITAL SIGNS: Temperature is 37.4, pulse 92, respiration rate 20, blood pressure 168/96, pulse ox 98% in room air. GENERAL: The patient is a white male, awake, alert and orientated, pleasant; obesity, BMI 43. No acute distress. HEAD: Normocephalic. EYES: Pupils equal, round responds to light. EARS: Ear was normal. NOSE: Normal. NECK: Supple. MOUTH: Moist mucous membranes. LUNGS: Bilateral lungs decreased breathing sounds. There was no wheezing, rhonchi or crackles. HEART: Regular rhythm S1, S2, has no murmur, no edema. ABDOMEN: Soft, nontender. Bowel sound was positive. GENITOURINARY AND RECTAL: Deferred. Bilateral CVA was nontender. MUSCULOSKELETAL: There was full range of motion without uncomfortable. SKIN: There was one area with erythema and warmth and tenderness in the middle upper back between shoulder blades. Indurated with central fluctuance. There was purulent drainages, ED physician sent culture. LABORATORY STUDIES: WBC 7.1, hemoglobin 11, platelets 165. Sodium 136, potassium 4.1, BUN 27, creatinine 1.3. Random blood glucose 205. Lactic acid 1.8. AST, ALT was normal. UA was highly concentrated, otherwise not remarkable. IMAGING STUDIES: Abdominal CT was done. There was 4.1 x 1.8 cm subcutaneous fluid collections in the left flank and lower back areas, which is consistent with abscess associated with cellulitis. There was additional small 1.6 cm suspicious subcutaneous abscess in the right flank. Multiple mild subcutaneous infiltrations in the left anterior abdominal wall without association with fluid collections. EKG was done in the Emergency Room which was normal sinus rhythm. There was a left ventricular hypertrophy. There were no ST-T phase changes. ASSESSMENT AND PLAN: A 62-year-old white male with the conditions seen below: 1. Multiple abscesses in upper and lower back, one of it had drained in the Emergency Room, associated with local cellulitis. 2. History of abscess in upper back. 3. Insulin-dependent diabetic, possible uncontrolled. 4. Hyperglycemia secondary to uncontrolled diabetic. 5. Possible sepsis with fever at home up to 102.5 and continued to be fever in the Emergency Room, was not documented was 38 degrees associated with elevated lactase. 6. History of coronary artery disease, stent. 7. Dyslipidemia. 8. Peripheral vessel disease. 9. Gastroesophageal reflux disease. 10. Congestive heart failure.. PLAN: 1. Because of the above conditions, patient will be full admission. I believe need to have 2-night hospital stay. Has sent blood culture, wound culture as well. will start broad spectrum antibiotics, but I believe vancomycin should be good enough, will follow up culture results cont antibiotics. Will have wound care consult and consult wound surgeons because of possibly developing abscess in upper back. Check hemoglobin A1c, diet for diabetic and insulin sliding scale, continue home dose of Levemir. Nutrition consultation because of obesity and possible uncontrolled diabetic. 2. History of coronary dyslipidemia, hypertension, GERD, we will continue home medication. 3. Possible history of CHF. There was no sign of decompensation. We will continue current medicine such as beta america, RUTH inhibitor and Lasix. 4. History of cardiac catheterization, history of CABGs, currently stable. 5. History of peripheral artery disease has stent in the legs. Continue current medications such as Plavix. Gi and DVT px MTDD
[2017-04-15] MEDS ORDERED: PANTOprazole SOD 40 MG TAB PO STA (15:19)
[2017-04-15 16:29] LABS: PROTHROMBIN TIME (PATIENT) 10.5 SECONDS (9.0-12.0)
--- NOTE | 2017-04-15 17:06 | Pharmacy Progress Note ---
Pharmacy Abx Initial Consult Date of Service Apr 15, 2017. Pharmacy Dosing Scope Date of Consult: 04/15/17 Consultation requested by: Dr. Haines Pharmacy is consulted to initiate Vancomycin IV dosing therapy, order appropriate labs and adjust drug dose/frequency. Subjective The patient is a 62 year old male admitted on Apr 15, 2017 at 13:10. Objective Height (Feet): 5 Height (Inches): 9.00 Weight (Kilograms): 132.000 Vital Signs (Past 12Hrs) Vital Signs Past 12 Hours Date Time Temp Pulse Resp B/P (MAP) Pulse Ox O2 Delivery O2 Flow Rate FiO2 04/15/17 14:36 70 16 119/70 94 Room Air 04/15/17 13:19 72 20 147/74 95 Room Air 04/15/17 13:00 36.8 84 18 168/94 96 Room Air 04/15/17 11:42 75 04/15/17 11:19 75 20 134/70 96 Room Air 04/15/17 09:00 37.4 92 20 168/96 98 Room Air Lab Results (24Hrs) Item Value Date Time Bedside Creatinine 1.3 mg/dl 04/15/17 1004 Laboratory Tests (24 Hours) Test 04/15/17 09:55 04/15/17 14:50 C-Reactive Protein 2.72 mg/dl (0-0.29) H Erythrocyte Sedimentation Rate 17 mm/hr (0-14) H White Blood Count 7.11 K/uL (4.8-10.8) Red Blood Count 3.64 M/uL (4.7-6.1) L Hemoglobin 11.5 g/dL (14.0-18.0) L Hematocrit 33.0 % (42-52) L Mean Corpuscular Volume 90.7 fL (80-100) Mean Corpuscular Hemoglobin 31.6 pg (25-34) Mean Corpuscular Hemoglobin Concent 34.8 g/dl (32-36) Platelet Count 165 K/uL (130-400) Mean Platelet Volume 9.8 fL (7.4-10.4) Neutrophils (%) (Auto) 70.6 % Lymphocytes (%) (Auto) 16.2 % Monocytes (%) (Auto) 11.0 % Eosinophils (%) (Auto) 1.8 % Basophils (%) (Auto) 0.3 % Neutrophils # (Auto) 5.02 K/uL (1.4-6.5) Lymphocytes # (Auto) 1.15 K/uL (1.2-3.4) L Monocytes # (Auto) 0.78 K/uL (0.11-0.59) H Eosinophils # (Auto) 0.13 K/uL (0-0.5) Basophils # (Auto) 0.02 K/uL (0-0.2) Lactic Acid Level 1.0 mmol/L (0.4-2.0) Micro Results Date/Time Source Procedure Growth Status 04/15/17 09:55 Blood Blood Culture Pending Received 04/15/17 09:52 Blood Blood Culture Pending Received 04/15/17 13:27 Skin Back Gram Stain Pending Cat Batch 04/15/17 13:27 Skin Back Wound Culture Pending Cat Batch 04/15/17 10:00 Abscess Back, Lower Gram Stain - Final Resulted 04/15/17 10:00 Abscess Back, Lower Wound Culture Pending Resulted 04/15/17 10:00 Abscess Back, Upper Gram Stain - Final Resulted 04/15/17 10:00 Abscess Back, Upper Wound Culture Pending Resulted Risk Factors for Resistance * Hospitalization for 48 hours or more within the past 90 days * Antimicrobial use within the last 90 days (10 days of augmentin completed) Assessment & Plan Assessment 62 year old male with fever and abscess in the upper back The patient reports multiple abscesses started 1 week ago in the upper back and left flank area. There was an abscess in the upper back about 1 month ago which was drained by PCP, was given 10 days of Augmentin. He reported that was cleared well; however, the abscess returned in the same location. Patient reported a fever at home 102.5 and feeling chill. Plan Vancomycin for treatment of back abscess with drainage. Vancomycin IV * Loading dose: 2,750 mg (20.8 mg/kg) * Estimated Ke = 0.053, T 1/2 = 13 hrs, Vd = 0.7 L/kg * Maintenance dose: 2,000 mg IV (15.1 mg/kg) every 16 hours * Goal trough level for skin & soft tissue : 15 to 20 mcg/mL * Trough level ordered for 04/17/17 @14:30 * A less than traditional dose and/or extended dosing interval has/have been selected due to likelihood of drug accumulation in obese patient/patient with h/ o CKD. Pharmacy will continue to follow and will adjust dose/frequency as necessary. Thank you.
[2017-04-15] MEDS: TRAMADOL HCL 50 MG TAB PO SCH ×2 (17:35→21:15)
[2017-04-15] MEDS: CHOLECALCIFEROL 1000 INTER.UNIT TAB PO SCH (17:36)
[2017-04-15] MEDS: INSULIN ASPART 100 UNITS/ML 3 ML PEN SC SCH ×2 (17:38→20:29)
[2017-04-15] MEDS: ENOXAPARIN 40 MG/0.4 ML SYR SQ SCH (20:25)
[2017-04-15] MEDS: FAMOTIDINE 20 MG TAB PO SCH (20:27)
[2017-04-15] MEDS: METOPROLOL TARTRATE 50 MG TAB PO SCH (20:27)
[2017-04-15] MEDS: CILOSTAZOL 100 MG TAB PO SCH (20:28)
[2017-04-15] MEDS: CEROVITE ADV FORMULA TAB PO SCH (20:30)
[2017-04-15] MEDS: OMEGA-3 (PURIFIED FISH OIL) 1 GM CAP PO SCH (20:30)
[2017-04-15] MEDS: CITALOPRAM 20 MG TAB PO SCH (20:31)
[2017-04-15] MEDS: CeleBREX 200 MG CAP PO SCH (20:32)
[2017-04-15] MEDS: ISOSORBIDE MONONITRATE 60 MG TABCR PO SCH (20:33)
[2017-04-15] MEDS: VALSARTAN 80 MG TAB PO SCH (20:33)
[2017-04-15] MEDS: ATORVASTATIN 40 MG TAB PO SCH (20:34)
[2017-04-15] MEDS: PANTOprazole SOD 40 MG TAB PO SCH (20:34)
[2017-04-15] MEDS: CLOPIDOGREL BISULFATE 75 MG TAB PO SCH (20:34)
[2017-04-15] MEDS: INSULIN DETEMIR FLEXPEN/FLEX TOUCH 100 UNITS/ML 3ML SQ SCH (20:40)
[2017-04-15 20:41] VITALS: BP 187/84; PULSE 79
[2017-04-15] MEDS ORDERED: OMEGA-3 (PURIFIED FISH OIL) 1 GM CAP PO SCH (21:00)
[2017-04-16 00:14] VITALS: O2SAT 94
[2017-04-16 00:39] VITALS: BP 151/95; PULSE 71; TEMP 36.7; O2SAT 97
[2017-04-16] MEDS: TRAMADOL HCL 50 MG TAB PO SCH ×3 (05:02→20:18)
[2017-04-16 06:10] LABS: BASO % 0.1 %; BASO ABS # 0.01 K/uL (0-0.2); COMPLETE YES; EOS % 2.4 %; HEMATOCRIT 32.2 % (42-52); IG% 0.1 %; LYMPH % 21.4 %; LYMPH ABS # 1.51 K/uL (1.2-3.4); MEAN CORPUSCULAR HEMOGLOBIN 30.6 pg (25-34); MEAN CORPUSCULAR HGB CONC 33.2 g/dl (32-36); MEAN PLATELET VOLUME 9.9 fL (7.4-10.4); PLATELET COUNT 161 K/uL (130-400); WHITE BLOOD COUNT 7.07 K/uL (4.8-10.8)
[2017-04-16 06:42] LABS: BUN/CREATININE RATIO 18.2 (10-20); CALCIUM 8.7 mg/dl (8.5-10.1); CREATININE 1.31 mg/dl (0.60-1.40); MAGNESIUM 2.1 mg/dl (1.8-2.4); POTASSIUM 4.7 mmol/L (3.5-5.1)
[2017-04-16 06:46] LABS: CHOLESTEROL/HDL RATIO 2.6
[2017-04-16] MEDS ORDERED: VANCOMYCIN INJ 2,000 MG in SODIUM CHLORIDE 0.9% 500ML 500 ML IV SCH (07:00)
[2017-04-16 07:34] VITALS: BP 113/63; PULSE 72; TEMP 36.2; O2SAT 97
[2017-04-16] MEDS: FAMOTIDINE 20 MG TAB PO SCH ×2 (08:41→20:14)
[2017-04-16] MEDS: METOPROLOL TARTRATE 50 MG TAB PO SCH ×2 (08:41→20:16)
[2017-04-16] MEDS: CILOSTAZOL 100 MG TAB PO SCH ×2 (08:41→20:14)
[2017-04-16] MEDS: OMEGA-3 (PURIFIED FISH OIL) 1 GM CAP PO SCH ×2 (08:42→20:14)
[2017-04-16] MEDS: MULTIVITAMIN TAB PO SCH (08:42)
[2017-04-16] MEDS: ASPIRIN 81 MG ECTAB PO SCH (08:44)
[2017-04-16] MEDS: CEROVITE ADV FORMULA TAB PO SCH ×2 (08:44→20:15)
[2017-04-16] MEDS: FUROSEMIDE 40 MG TAB PO SCH (08:44)
[2017-04-16] MEDS: SPIRONOLACTONE 25 MG TAB PO SCH (08:47)
[2017-04-16] MEDS: INSULIN ASPART 100 UNITS/ML 3 ML PEN SC SCH ×4 (08:53→20:20)
[2017-04-16] MEDS: INSULIN DETEMIR FLEXPEN/FLEX TOUCH 100 UNITS/ML 3ML SQ SCH ×2 (08:57→20:20)
[2017-04-16] MEDS: ATORVASTATIN 40 MG TAB PO SCH (10:07)
[2017-04-16] MEDS: CITALOPRAM 20 MG TAB PO SCH (10:07)
[2017-04-16] MEDS: VALSARTAN 80 MG TAB PO SCH (10:07)
[2017-04-16] MEDS: CLOPIDOGREL BISULFATE 75 MG TAB PO SCH (10:07)
[2017-04-16] MEDS: ISOSORBIDE MONONITRATE 60 MG TABCR PO SCH (10:07)
[2017-04-16] MEDS: CeleBREX 200 MG CAP PO SCH (10:08)
[2017-04-16] MEDS: CHOLECALCIFEROL 1000 INTER.UNIT TAB PO SCH (13:36)
[2017-04-16] MEDS ORDERED: VANCOMYCIN TROUGH ONE (14:30)
[2017-04-16 15:04] VITALS: BP 137/72; PULSE 64; TEMP 36.8; O2SAT 95
[2017-04-16] MEDS ORDERED: CEFTRIAXONE SOD INJ 2,000 MG in DEXTROSE 5% 50ML 50 ML IV SCH (18:00)
[2017-04-16] MEDS: ENOXAPARIN 40 MG/0.4 ML SYR SQ SCH (18:25)
[2017-04-16 20:23] VITALS: BP 163/84; PULSE 71
--- NOTE | 2017-04-16 23:01 | Progress Note ---
Subjective Date of Service: Apr 16, 2017. Subjective Pt evaluation today including: conversation w/ patient, physical exam, chart review, lab review Patient reports ding well. He denies any pain, fever, chills, N/V. Patient reports that the asbces in his back have decreased significantly since he has been here. Px denies history of MRSA. Patient reports multiple episodes of skin asbcesses, and having pilonidal cysts in the past. Problem List Medical Problems: (1) Abscess of lower back Status: Acute (2) Cellulitis of lower back Status: Acute Review of Systems Constitutional: No fever, No chills ENT: No hearing loss Respiratory: No cough, No sputum Cardiac: No chest pain, No orthopnea Abdomen: No pain, No nausea Neurologic: No memory loss, No paralysis Endo: No fatigue Skin: + new/changing skin lesions, No rash, No itch All Other Systems: Reviewed and Negative Medications Current Inpatient Medications Medications (Trade) Dose Ordered Sig/Zeeshan Route Start Time Stop Time Status Last Admin Dose Admin Ioversol (Optiray 320) 125 ml UD PRN IV 04/15/17 09:30 04/19/17 09:29 Enoxaparin Sodium (Lovenox Inj) 40 mg Q24H SQ 04/15/17 19:00 05/15/17 18:59 04/16/17 18:25 40 MG Acetaminophen (Tylenol Tab) 650 mg Q4H PRN PO 04/15/17 13:15 05/15/17 13:14 Al Hydrox/Mg Hydrox/Simethicone (Maalox Max Susp) 15 ml Q4H PRN PO 04/15/17 13:15 05/15/17 13:14 Magnesium Hydroxide (Milk Of Magnesia Susp) 30 ml Q6H PRN PO 04/15/17 13:15 05/15/17 13:14 Polyethylene (Miralax Powder Packet) 17 gm DAILY PRN PO 04/15/17 13:15 05/15/17 13:14 Ondansetron HCl (Zofran Inj) 4 mg Q6H PRN IV 04/15/17 13:15 05/15/17 13:14 Insulin Aspart (novoLOG ASPART) SLIDING SCALE If C... ACHS SC 04/15/17 16:00 05/15/17 15:59 04/16/17 20:20 1 UNITS Glucose (Glucose 40% Gel) 15-30 GRAMS 15 GRAMS... UD PRN PO 04/15/17 13:15 05/15/17 13:14 Glucose (Glucose Chew Tab) 4-8 Tablets 4 Tabl... UD PRN PO 04/15/17 13:15 05/15/17 13:14 Dextrose (Dextrose 50% 50ML Syringe) 25-50ML OF 50% DW IV FOR... UD PRN IV 04/15/17 13:15 05/15/17 13:14 Glucagon (Glucagon Inj) 1 mg UD PRN SQ 04/15/17 13:15 05/15/17 13:14 Aspirin (Ecotrin Tab) 81 mg DAILY PO 04/16/17 08:00 05/16/17 08:59 04/16/17 08:44 81 MG Atorvastatin Calcium (Lipitor Tab) 80 mg DAILY PO 04/16/17 08:00 05/16/17 08:59 04/16/17 10:07 80 MG Celecoxib (CeleBREX CAP) 200 mg QAM PO 04/16/17 08:00 05/16/17 08:59 04/16/17 10:08 200 MG Cilostazol (Pletal Tab) 100 mg BID PO 04/15/17 20:00 05/15/17 20:59 04/16/17 20:14 100 MG Citalopram Hydrobromide (celeXA TAB) 20 mg QAM PO 04/16/17 08:00 05/16/17 08:59 04/16/17 10:07 20 MG Clopidogrel Bisulfate (plAVix TAB) 75 mg QAM PO 04/16/17 08:00 05/16/17 08:59 04/16/17 10:07 75 MG Docusate Sodium (coLACE CAP) 100 mg DAILY PRN PO 04/15/17 13:15 05/15/17 13:14 Famotidine (Pepcid Tab) 20 mg BID PO 04/15/17 20:00 05/15/17 20:59 04/16/17 20:14 20 MG Furosemide (Lasix Tab) 40 mg QAM PO 04/16/17 08:00 05/16/17 08:59 04/16/17 08:44 40 MG Insulin Detemir (Levemir Flexpen/ FlexTouch) 35 units QAM SQ 04/16/17 08:00 05/16/17 08:59 04/16/17 08:57 35 UNITS Insulin Detemir (Levemir Flexpen/ FlexTouch) 40 units QPM SQ 04/15/17 21:00 05/15/17 20:59 04/16/17 20:20 40 UNITS Isosorbide Mononitrate (Imdur Ext Rel Tab) 60 mg QAM PO 04/16/17 08:00 05/16/17 08:59 04/16/17 10:07 60 MG Metoprolol Tartrate (Lopressor Tab) 50 mg BID PO 04/15/17 20:00 05/15/17 20:59 04/16/17 20:16 50 MG Multivitamins (Multivitamin Tab) 1 tab QAM PO 04/16/17 08:00 05/16/17 08:59 04/16/17 08:42 1 TAB Nitroglycerin (Nitrostat Tab) 0.4 mg UD PRN UT 04/15/17 13:15 05/15/17 13:14 Spironolactone (Aldactone Tab) 25 mg DAILY PO 04/16/17 08:00 05/16/17 08:59 04/16/17 08:47 25 MG Tramadol HCl (Ultram Tab) 50 mg Q8H PO 04/15/17 13:15 05/15/17 13:14 04/17/17 05:46 50 MG Valsartan (Diovan Tab) 40 mg DAILY PO 04/16/17 08:00 05/16/17 08:59 04/16/17 10:07 40 MG Cholecalciferol (Vitamin D Tab) 2,000 inter.unit DAILY@1400 PO 04/15/17 15:30 05/15/17 15:29 04/16/17 13:36 2,000 INTER.UNIT Multivitamins/ Minerals (Multivitamin W/ Minerals Tab) 1 tab BID PO 04/15/17 20:00 05/15/17 20:59 04/16/17 20:15 1 TAB Pantoprazole Sodium (Protonix Tab) 40 mg QAM PO 04/16/17 08:00 05/16/17 08:59 04/15/17 20:34 40 MG Fish Oil ([place]-3 (Purified Fish Oil) Cap) 1 gm BID PO 04/15/17 20:00 05/15/17 20:59 04/16/17 20:14 1 GM Ceftriaxone Sodium 2000 mg/ Dextrose 70 ml @ 100 mls/hr Q24H IV 04/16/17 18:00 04/26/17 17:59 04/16/17 18:24 100 MLS/HR Objective Vital Signs Date Time Temp Pulse Resp B/P (MAP) Pulse Ox O2 Delivery O2 Flow Rate FiO2 04/16/17 20:23 71 163/84 (110) 04/16/17 17:00 Room Air 04/16/17 15:04 36.8 64 18 137/72 (93) 95 Room Air 04/16/17 08:00 Room Air 04/16/17 07:34 36.2 72 20 113/63 (80) 97 Room Air 04/16/17 00:39 36.7 71 20 151/95 (113) 97 Room Air 04/16/17 00:14 94 Room Air Physical Exam General Appearance: WD/WN, no apparent distress Neck: supple, no adenopathy Respiratory/Chest: chest non-tender, lungs clear, normal breath sounds Cardiovascular: regular rate, rhythm, no edema, no gallop Abdomen: normal bowel sounds, non tender, soft Extremities: normal range of motion, non-tender Skin: + pertinent finding (2 skin lesions covered uo in dressing. Location is upper-middle thoracic back, and the other is on the left, on his lumbar region) Laboratory Results Last 24 Hours Test 04/16/17 05:45 04/16/17 07:53 04/16/17 11:28 04/16/17 16:27 White Blood Count 7.07 K/uL Red Blood Count 3.50 M/uL Hemoglobin 10.7 g/dL Hematocrit 32.2 % Mean Corpuscular Volume 92.0 fL Mean Corpuscular Hemoglobin 30.6 pg Mean Corpuscular Hemoglobin Concent 33.2 g/dl Platelet Count 161 K/uL Mean Platelet Volume 9.9 fL Neutrophils (%) (Auto) 64.0 % Lymphocytes (%) (Auto) 21.4 % Monocytes (%) (Auto) 12.0 % Eosinophils (%) (Auto) 2.4 % Basophils (%) (Auto) 0.1 % Neutrophils # (Auto) 4.52 K/uL Lymphocytes # (Auto) 1.51 K/uL Monocytes # (Auto) 0.85 K/uL Eosinophils # (Auto) 0.17 K/uL Basophils # (Auto) 0.01 K/uL RDW Standard Deviation 46.5 fL RDW Coefficient of Variation 13.9 % Immature Granulocyte % (Auto) 0.1 % Immature Granulocyte # (Auto) 0.01 K/uL Sodium Level 141 mmol/L Potassium Level 4.7 mmol/L Chloride Level 107 mmol/L Carbon Dioxide Level 27 mmol/L Anion Gap 6.0 mmol/L Blood Urea Nitrogen 24 mg/dl Creatinine 1.31 mg/dl Est Creatinine Clear Calc Drug Dose 78.8 ml/min Estimated GFR () 67.2 Estimated GFR (Non- 57.9 BUN/Creatinine Ratio 18.2 Random Glucose 125 mg/dl Calcium Level 8.7 mg/dl Magnesium Level 2.1 mg/dl Total Bilirubin 0.5 mg/dl Direct Bilirubin 0.1 mg/dl Aspartate Amino Transf (AST/SGOT) 12 U/L Alanine Aminotransferase (ALT/SGPT) 18 U/L Alkaline Phosphatase 106 U/L Total Protein 6.4 gm/dl Albumin 3.0 gm/dl Triglycerides Level 158 mg/dl Cholesterol Level 116 mg/dl HDL Cholesterol 45 mg/dl LDL Cholesterol, Calculated 39 mg/dl VLDL Cholesterol, Calculated 32 mg/dl Cholesterol/HDL Ratio 2.6 Bedside Glucose 110 mg/dl 126 mg/dl 127 mg/dl Test 04/16/17 20:05 Bedside Glucose 153 mg/dl Assessment and Plan 2 skin abcessses S/P I and D in a 62 yo male with h/o of recurrent skin infections Admitted to the MED/SURG floor Initially placed on vanco for possible MRSA. Prelim. culture grew gram neg. bacilli. Was changed to ceftriaxone. will see wound care, likely in AM Lesions appear to have improved significantly. There was concern over sepsis when admitted given that he had a fever per admitting team, but this has subsided. Patient can likely be sent home tomorrow on oral antivioitcs after seeing wound care. 2. History of dyslipidemia, hypertension, GERD, will continue home medication. stable 3. Possible history of CHF. Stable. will continue current medicine such as beta amer[place], RUTH inhibitor and Lasix. 4. History of cardiac catheterization, history of CABGs, currently stable. 5. History of peripheral artery disease has stent in the legs. Continue current medications such as Plavix. 6. Diabetes M. 2: will continue Insulin
[2017-04-17 00:05] VITALS: BP 131/83; PULSE 65; TEMP 36.7; O2SAT 95
[2017-04-17] MEDS: TRAMADOL HCL 50 MG TAB PO SCH (05:46)
[2017-04-17 07:26] VITALS: BP 162/97; PULSE 67; TEMP 37.1; O2SAT 96
[2017-04-17 07:34] LABS: ESTIMATED AVERAGE GLUCOSE 126 mg/dl; HA1C FLAG Normal (Normal)
[2017-04-17 07:47] LABS: CREATININE 1.33 mg/dl (0.60-1.40)
[2017-04-17] MEDS: FAMOTIDINE 20 MG TAB PO SCH (07:47)
[2017-04-17] MEDS: MULTIVITAMIN TAB PO SCH (07:48)
[2017-04-17] MEDS: METOPROLOL TARTRATE 50 MG TAB PO SCH (07:48)
[2017-04-17] MEDS: CEROVITE ADV FORMULA TAB PO SCH (07:48)
[2017-04-17] MEDS: ASPIRIN 81 MG ECTAB PO SCH (07:49)
[2017-04-17] MEDS: VALSARTAN 80 MG TAB PO SCH (07:49)
[2017-04-17] MEDS: ATORVASTATIN 40 MG TAB PO SCH (07:49)
[2017-04-17] MEDS: CLOPIDOGREL BISULFATE 75 MG TAB PO SCH (07:50)
[2017-04-17] MEDS: ISOSORBIDE MONONITRATE 60 MG TABCR PO SCH (07:50)
[2017-04-17] MEDS: SPIRONOLACTONE 25 MG TAB PO SCH (07:50)
[2017-04-17] MEDS: CITALOPRAM 20 MG TAB PO SCH (07:50)
[2017-04-17] MEDS: CeleBREX 200 MG CAP PO SCH (07:51)
[2017-04-17] MEDS: CILOSTAZOL 100 MG TAB PO SCH (07:51)
[2017-04-17] MEDS: OMEGA-3 (PURIFIED FISH OIL) 1 GM CAP PO SCH (07:51)
[2017-04-17] MEDS: PANTOprazole SOD 40 MG TAB PO SCH (07:52)
[2017-04-17] MEDS: FUROSEMIDE 40 MG TAB PO SCH (07:52)
[2017-04-17] MEDS: INSULIN ASPART 100 UNITS/ML 3 ML PEN SC SCH (08:56)
[2017-04-17] MEDS: INSULIN DETEMIR FLEXPEN/FLEX TOUCH 100 UNITS/ML 3ML SQ SCH (08:57)
[2017-04-17] MEDS ORDERED: CEPHALEXIN MONOHYDRATE 500 MG CAP PO ONE (09:45)
[2017-04-17] MEDS ORDERED: KFL500 PO (11:29)
--- NOTE | 2017-04-17 11:34 | Discharge Instructions ---
Discharge Instructions Date of Service Apr 17, 2017. Admission Reason for Admission: Fever,Multiple Abscess Discharge Discharge Diagnosis / Problem: Abscess and Cellulitis Discharge Goals Goal(s): Decrease discomfort, Improve function, Increase independence Activity Recommendations Activity Limitations: resume your previous activity . Instructions / Follow-Up Instructions / Follow-Up Abscess and Skin Infection: Serratia Marcescens - Continue Keflex 500 mg twice a day for 10 days. You had a dose this AM and will only need to take a dose tonight on 04/17 then resume twice a day on 04/18 - You were seen by wound care and our case picker will help set up an appointment to get you established with them for ongoing evaluation and care - Recommend to continue good diabetic control. Your A1c is 6 which shows that your regimen is good and recommend to continue to monitor to reduce infection risk Follow-Up: - Recommend follow-up with wound care and your family doctor in the next 7-10 days - You may continue your previously prescribed medications. No changes were made Current Hospital Diet Patient's current hospital diet: Diabetes Type 2 Diet Discharge Diet Recommended Diet: Diabetes Type 2 Diet Pending Studies Studies pending at discharge: no Laboratory Results Hemoglobin A1c Test 04/16/17 05:45 Range/Units Estimated Average Glucose 126 mg/dl Hemoglobin A1c 6.0 H 4.5-5.6 % Lipid Panel Test 04/16/17 05:45 Range/Units Triglycerides Level 158 H 0-150 mg/dl Cholesterol Level 116 0-200 mg/dl HDL Cholesterol 45 mg/dl Cholesterol/HDL Ratio 2.6 LDL Cholesterol, Calculated 39 mg/dl Medical Emergencies . Who to Call and When: Medical Emergencies: If at any time you feel your situation is an emergency, please call 911 immediately. . Non-Emergent Contact Non-Emergency issues call your: Primary Care Provider Call Non-Emergent contact if: you have a fever, your pain is concerning you, you have any medication questions . . "Provider Documentation" section prepared by Stephanie Henry. . VTE Core Measure Inpt VTE Proph given/why not?: Enoxaparin (Lovenox)SQ
[2017-04-17 12:24] VITALS: BP 162/97; PULSE 67; TEMP 37.1; O2SAT 96
--- NOTE | 2017-04-17 13:47 | Discharge Summary ---
Discharge Summary Date of Service Apr 17, 2017. Discharge Summary Admission Date: Apr 15, 2017 at 13:10 Discharge Date: Apr 17, 2017 Discharge Disposition: Home Principal Diagnosis: Recurrent Abscess and Cellulitis Problems/Secondary Diagnoses: 1. CAD S/P IL and Stent 2. CKD 3. Peripheral Artery Disease 4. T2DM with Peripheral Neuropathy 5. Venous Thrombosis 6. HTN 7. Vit D Deficiency Procedures: CT OF THE ABDOMEN AND PELVIS WITH CONTRAST FINDINGS: Note is made of a 4.1 x 1.8 cm subcutaneous fluid collection with peripheral enhancement within the left lower back/left flank with moderate adjacent infiltration and associated skin thickening. There is an additional smaller right flank subcutaneous fluid collection shown on axial image 10 of 511 that measures 1.6 cm. This has minimal peripheral enhancement. There is mild multifocal subcutaneous infiltration of the left anterior abdominal wall without associated fluid collection. The liver, spleen, adrenal glands, kidneys and pancreas are unremarkable. There is no biliary or pancreatic ductal dilatation. There is no hydronephrosis. Caliber and wall thickness of small and large bowel are normal. The appendix is normal. There is extensive atherosclerotic plaque of the abdominal aorta which is normal in caliber. Note is made of patent bilateral iliac vein stents. No suspicious osseous lesions are present. IMPRESSION: 1. 4.1 x 1.8 cm subcutaneous fluid collection of the left flank/lower back. This is consistent with an abscess with associated cellulitis. No soft tissue gas. 2. Additional small 1.6 cm suspected subcutaneous abscess of the right flank. 3. Mild multifocal subcutaneous infiltration of the left anterior abdominal wall without associated fluid collection which is nonspecific. Consultations: 1. Wound Care Medication Reconciliation New Medications: Cephalexin Monohydrate (Cephalexin) 500 Mg Cap 500 MG PO BID, #19 CAP Take one tablet this evening 04/17 and then resume twice a day on 04/18 Continued Medications: Aspirin (Aspirin 81) 81 Mg Tab 81 MG PO DAILY Atorvastatin (Lipitor) 80 Mg Tab 80 MG PO DAILY, TAB Biotin (Biotin) 1 Mg Cap 1 CAP PO DAILY AFTERNOON Celecoxib (CeleBREX) 200 Mg Cap 200 MG PO QAM, CAP Cholecalciferol (Vitamin D3) 2,000 Unit Tab 2000 UNITS PO DAILY AFTERNOON Chromium (Chromium) 1,000 Mcg Tab 2000 MCG PO DAILY AFTERNOON Cilostazol (Pletal) 100 Mg Tab 100 MG PO BID, TAB Citalopram (Citalopram Hydrobromide) 20 Mg Tab 20 MG PO QAM Clopidogrel (Plavix) 75 Mg Tab 75 MG PO QAM, TAB Docusate Sodium (Colace) 100 Mg Cap 1 CAP PO DAILY PRN for Constipation Famotidine (Pepcid) 20 Mg Tab 20 MG PO BID, TAB Furosemide (Lasix) 40 Mg Tab 40 MG PO QAM, TAB Insulin Aspart (Novolog Flexpen) 100 Units/Ml Inj 1 DOSE SQ UD WITH MEALS, PER SLIDING SCALE Insulin Detemir (Levemir Flextouch) 100 Unit/Ml Inj 35 UNITS SQ QAM Insulin Detemir (Levemir Flextouch) 100 Unit/Ml Inj 40 UNITS SQ QPM Isosorbide Mononitrate Ext Rel (Imdur Ext Rel) 60 Mg Ertab 60 MG PO QAM, TAB Magnesium Gluconate (Magnesium Gluconate) 500 Mg Tab 500 MG PO TID Metoprolol Tartrate (Lopressor) 50 Mg Tab 50 MG PO BID, TAB Multiple Vitamin (Multi Vitamin Mens) 1 Tab Tab 1 TAB PO QAM Multiple Vitamins W/ Minerals (Preservision Areds 2) 1 Cap Cap 1 CAP PO BID Nitroglycerin (Nitrostat) 0.4 Mg Tab 0.4 MG UT PRN, BTL [place]-3 Fatty Acids (Fish Oil 1200 mg) 1 Cap Cap 1200 MG PO BID Spironolactone (Aldactone) 25 Mg Tab 25 MG PO DAILY, TAB Tramadol Hcl (Ultram) 50 Mg Tab 50 MG PO Q8H, TAB PRN PAIN Valsartan (Diovan) 40 Mg Tab 40 MG PO DAILY AFTERNOON, TAB Discharge Exam Review of Systems: Constitutional: No fever, No chills Respiratory: No cough, No shortness of breath Cardiovascular: No chest pain Abdomen: No pain, No nausea, No vomiting, No diarrhea, No constipation Musculoskeletal: No swelling, No calf pain Genitourinary - Male: No dysuria Hematologic / Lymphatic: No abnormal bleeding/bruising Integumentary: + problem reported (erythema improving; no pain at drainage site) Physical Exam: General Appearance: WD/WN, no apparent distress Eyes: sclerae normal ENT: hearing grossly normal Neck: supple, no JVD, trachea midline Respiratory/Chest: lungs clear, normal breath sounds, no respiratory distress, no accessory muscle use Cardiovascular: regular rate, rhythm, no gallop, no murmur Abdomen / GI: normal bowel sounds, non tender, soft Neurologic/Psychiatric: alert, oriented x 3 Skin: + pertinent finding (erythema to mid-back with packed wound) Hospital Course ADMISSION: The patient is a 62-year-old white male with a significant past medical history of CKD, peripheral artery disease, aortocoronary bypass, venous thrombosis, hypertension, history of IL, vitamin D deficiency, CAD, stent, insulin-dependent diabetic, sebaceous cyst, coming to the hospital Emergency Room because of the above chief complaint. The patient reports multiple abscesses started 1 week ago in the upper back and left flank area. There was an abscess in the upper back about 1 month ago which was drained by PCP, was given 10 days of Augmentin. He reported that was cleared well; however, the abscess returned in the same location, and now there was larger areas of redness , swelling and pain in the lower back. The abscess in the upper back has started draining today. He was feeling pain and uncomfortable. There was a fever at home 102.5 and feeling chill. Also associated with racing heart. When I interviewed with the patient, he had 1 abscess drained by ED physicians. He got cefepime and vancomycin IV. The report by nurse temperature was 38, when arriving to the Emergency Room, but was not documented, currently has no fever, no chills. Denied runny nose; denies sore throat; denied cough, sputum, shortness of breath. Denied racing heart or lower extremity swellings. Denied nausea, vomiting, abdominal pain, diarrhea, or constipation; denied dysuria, urgency, or frequencies; denied lower extremity swellings; denied facial droop, slurry speeches or local weakness. Denied anywhere limited range of motion. Skin has several different size abscesses in the upper back and lower back. Otherwise, no rash. HOSPITAL COURSE: Mr. Acevedo was admitted for recurrent abscesses and cellulitis. Cx grew out pansensitive Serratia marcescens. He will be continued on Keflex 500 mg BID x 10 days with outpatient follow-up with wound care and PCP for ongoing evaluation and possible need for further duration of therapy if needed. Packing was placed in abscess that was drained in ED with noted tunneling. Outpatient follow-up was set up. Patient is afebrile and without leukocytosis. i personally examined pt and verified all lozada points w A Carl PAC feeling better back abscesses stable discussed ongoing treatment plan and follow up w wound clinic vitals noted nad breathing unlabored no pallor or icterus serratia abscesses - keflex, stable for home, ongoing PCP and wound follow up Total Time Spent: Greater than 30 minutes This includes examination of the patient, discharge planning, medication reconciliation, and communication with other providers. Discharge Instructions Please refer to the electronic Patient Visit Report (Discharge Instructions) for additional information. Additional Copies To RV. Short MD
[2017-04-17] MEDS ORDERED: VANCOMYCIN TROUGH ONE (14:30)
[2017-04-17] MEDS ORDERED: CEPHALEXIN MONOHYDRATE 500 MG CAP PO SCH (20:00)
== END 2017-04-17 13:00 | disposition home or self-care (01) | DRG 603 ==
LOC: C.EDB 08:55 → C.MS4W 13:10 → ENRESERV 13:48 → EDBEDREQ 14:10
PROVIDERS: ADMIT Hospitalist; ATTEND Hospitalist
PROC: 0W9L3ZZ Drainage of Lower Back, Percutaneous Approach (ICD-10-PCS; principal; 2017-04-15)
DX: L02.212 Cutaneous abscess of back [any part, except buttock and flank] (principal); Z68.41 Body mass index [BMI] 40.0-44.9, adult; L03.312 Cellulitis of back [any part except buttock and flank]; I12.9 Hypertensive chronic kidney disease with stage 1 through stage 4 chronic kidney disease, or unspecified chronic kidney disease; I25.10 Atherosclerotic heart disease of native coronary artery without angina pectoris; N18.9 Chronic kidney disease, unspecified; Z79.82 Long term (current) use of aspirin; Z79.4 Long term (current) use of insulin; I73.9 Peripheral vascular disease, unspecified; E55.9 Vitamin D deficiency, unspecified; E66.9 Obesity, unspecified; Z87.891 Personal history of nicotine dependence; I25.2 Old myocardial infarction; Z95.1 Presence of aortocoronary bypass graft

== ENCOUNTER → 2017-06-13 | Outpatient (CLI) | payer OTHER ==
[~2017-06-13] VITALS: Ht 175.3 cm; Wt 130.5 kg
[~2017-06-13] MED LIST changes: +ASPI-435 PO; +ATOR-26 PO; +CILO100T PO; +CLOP1TAB15 PO; -INSDGI SC; +INSU3INJ3 SQ; -ISOS30TA35 PO; +ISOS60TA25 PO; +LVMIPEN SQ; -NVLGI SC; +NVLGI/PEN SQ; +OMEG5CAP PO; -SIMV80TA2 PO; +SPIR25TA PO
[2017-06-13 16:15] VITALS: BP 146/77; PULSE 81; Ht 175.3 cm; Wt 130.5 kg
== END | disposition home or self-care (01) ==
LOC: C.NEUR 15:10
PROVIDERS: ATTEND Internal Medicine Pulmonary Disease
DX: G47.31 Primary central sleep apnea (principal); G47.33 Obstructive sleep apnea (adult) (pediatric); I25.10 Atherosclerotic heart disease of native coronary artery without angina pectoris; E11.21 Type 2 diabetes mellitus with diabetic nephropathy; I10 Essential (primary) hypertension; I73.9 Peripheral vascular disease, unspecified; Z95.1 Presence of aortocoronary bypass graft; Z90.89 Acquired absence of other organs; Z98.890 Other specified postprocedural states; Z82.49 Family history of ischemic heart disease and other diseases of the circulatory system; Z79.82 Long term (current) use of aspirin; E78.5 Hyperlipidemia, unspecified; Z79.899 Other long term (current) drug therapy

== ENCOUNTER → 2017-06-27 | Outpatient (CLI) | payer OTHER ==
[2017-06-28 06:05] LABS: HEMOGLOBIN A1C 6.2 % (4.5-5.6)
== END | disposition home or self-care (01) ==
LOC: C.LAB1850 14:34
PROVIDERS: ATTEND Physician Assistant
DX: E11.8 Type 2 diabetes mellitus with unspecified complications (principal)

== ENCOUNTER → 2017-08-09 | Day surgery (SDC) | payer OTHER ==
[2017-08-03 15:52] LABS: BASO % 0.5 %; BASO ABS # 0.03 K/uL (0-0.2); EOS % 3.1 %; HEMATOCRIT 35.3 % (42-52); IG# 0.01 K/uL (0.00-0.02); LYMPH % 32.6 %; LYMPH ABS # 2.09 K/uL (1.2-3.4); MEAN CELL VOLUME 90.7 fL (80-100); MEAN CORPUSCULAR HEMOGLOBIN 30.8 pg (25-34); MEAN PLATELET VOLUME 9.8 fL (7.4-10.4); MONO ABS # 0.77 K/uL (0.11-0.59); NEUT % 51.6 %; NEUT ABS # 3.32 K/uL (1.4-6.5); PLATELET COUNT 192 K/uL (130-400); RED CELL DISTRIBUTION WIDTH CV 14.2 % (11.5-14.5); WHITE BLOOD COUNT 6.42 K/uL (4.8-10.8)
[2017-08-03 16:03] LABS: BLOOD UREA NITROGEN 35 mg/dl (7-18); CALCIUM 9.5 mg/dl (8.5-10.1); CARBON DIOXIDE 28 mmol/L (21-32); CREATININE 1.82 mg/dl (0.60-1.40); GLUCOSE 99 mg/dl (70-99); POTASSIUM 4.5 mmol/L (3.5-5.1); SODIUM 139 mmol/L (136-145)
[2017-08-07 08:24] VITALS: BMI 41.0
[~2017-08-09] VITALS: Ht 175.3 cm; Wt 132.6 kg
[~2017-08-09] MED LIST changes: +ATROPINE SULFATE 0.1 MG/ML 5ML SYR IV PRN; +CEFAZOLIN 2000MG IV PUSH 15 ML IV SCH; +CEPH500C2 PO; +EpHEDrine SULFATE INJ 50 MG/ML AMP IV PRN; +FENTANYL CITRATE INJ 50 MCG/1 ML 2 ML VIAL IV PRN; +FENTANYL CITRATE INJ 50 MCG/1 ML 2 ML VIAL ONE; +HYDR-5688 PO; +HYDROCODONE/ACETAMIN 5/325MG TAB PO PRN; +INSU1.2I INJ; -INSU3INJ3 SQ; +KETAMINE HCL INJ 50 MG/ML 10 ML VIAL ONE; +LACTATED RINGER'S 1000ML 1,000 ML IV SCH; +LARYING-O-JET KIT (LTA) ONE; +LIDOCAINE HCL 1% 20 ML VIAL ONE; +LIDOCAINE HCL 2% 2 ML VIAL (20MG/ML) ONE; -LVMIPEN SQ; +MIDAZOLAM HCL 1 MG/ML 2ML VIAL ONE; +ONDANSETRON INJ 2 MG/ML 2 ML VIAL IV PRN; +ONDANSETRON INJ 2 MG/ML 2 ML VIAL ONE; +PROPOFOL IV EMULSION 10 MG/ML 20 ML VIAL IV ONE
[2017-08-09 06:41] VITALS: BP 193/87; PULSE 74; TEMP 37.4; O2SAT 97; Ht 175.3 cm; Wt 132.6 kg
--- NOTE | 2017-08-09 07:47 | [facility] Operative Report ---
Operative Report Operative Date Aug 09, 2017. Pre-Operative Diagnosis Abscess of back Post-Operative Diagnosis Abscess of back, multiple sinus tracts Procedure(s) Performed Incision and Debridement of Cysts on Back, and sinus tracts Surgeon Dr. Sergey Mcintosh Commercial Portfolio Manager Surgeon(s) Nickie Last PA-C Estimated Blood Loss 5 mL Findings draining sinus tracts Specimens Microbiology #1. Infected back cyst Routine C/S, Gram Stain, Anerobic/Aerobic. Sent to lab at 0736. Drains None Anesthesia Type MAC Complication(s) none Disposition Recovery Room / PACU I attest to the content of the Intraoperative Record and any orders documented therein. Any exceptions are noted below.
--- NOTE | 2017-08-09 08:00 | Discharge Instructions ---
Discharge Instructions Date of Service Aug 09, 2017. Visit Reason for Visit: Abscess of Back; Type II Diabetic Discharge Discharge Diagnosis / Problem: draining sinus tracts Discharge Goals Goal(s): Decrease discomfort, Improve function, Improve disease control Activity Recommendations Activity Limitations: as noted below Lifting Limitations: gradually increase as tolerated Exercise/Sports Limitations: until after follow-up appointment May Resume Sexual Activity: when tolerated Shower/Bathe: tomorrow Driving or Machine Use: resume 1 day after discharge Anesthesia . Post Anesthesia Instructions: If you have had General Anesthesia or IV Sedation: * Do not drive today. * Resume driving when surgeon permits. * Do not make important decisions or sign legal documents today. * Call surgeon for: 1. Temperature elevations greater than 101 degrees F. 2. Uncontrollable pain. 3. Excessive bleeding. 4. Persistent nausea and vomiting. 5. Medication intolerance (nausea, vomiting or rash). * For nausea and vomiting use only clear liquids such as: tea, soda, bouillon until nausea subsides, then gradually increase diet as tolerated. * If you have any concerns or questions, call your surgeon's office. If physician is unavailable and it is an emergency, call 911 or go to the nearest emergency room. . Instructions / Follow-Up Instructions / Follow-Up SPECIAL CARE INSTRUCTIONS: * Cover incisions and change daily for comfort/drainage. May need to change outer dressing cover with dry gauze * May use ibuprofen for pain as tolerated. * Expect some swelling and bruising. Call your doctor if: * Temperature above 101 degrees * Pain not relieved by pain medicine ordered * There is increased drainage or redness from any incision * You have any unanswered questions or concerns [phone]. FOLLOW UP VISIT: If not already scheduled, please call the office for a follow-up visit. follow up at wound clinic- they will call you for appt for tomorrow OFFICE PHONE NUMBER: Dr. Mcintosh Office Diet Recommendations Recommended Home Diet: resume previous diet Procedures Procedures Performed: Incision and Debridement of Cysts on Back, and sinus tracts Pending Studies Studies pending at discharge: no Medical Emergencies . Who to Call and When: Medical Emergencies: If at any time you feel your situation is an emergency, please call 911 immediately. . Non-Emergent Contact Non-Emergency issues call your: Primary Care Provider, Surgeon . . "Provider Documentation" section prepared by Sergey Mcintosh. .
--- NOTE | 2017-08-09 08:12 | OPERATIVE REPORT ---
DATE OF OPERATION: 08/09/2017 NAME OF OPERATION: Incision and debridement of multiple sinus tracts on the back. PREOPERATIVE DIAGNOSIS: Draining sinus tracts. POSTOPERATIVE DIAGNOSIS: Same. STAFF SURGEON: Sergey Mcintosh MD. PACKAGING TECHNICIAN: Nickie Last PA-C. ANESTHESIA: Sedation with 1% plain lidocaine. DESCRIPTION OF THE PROCEDURE: The patient was brought into the operating room and placed on the operating room table in the right lateral decubitus position. His back was prepped and draped in usual fashion. In the mid upper back, he had 2 sites of draining purulent fluid with surrounding induration. Using 1% plain lidocaine, the area was anesthetized and then the sinus tract opened widely and debrided. They were relatively deep, approximately 2 cm. After appropriate debridement and hemostasis, Aquacel Ag gauze was placed and then a gauze dressing. The patient was transferred to recovery room in stable condition. My front office assistant helped with prepping, draping, exposure of the wound debridement and closure. I attest to the content of the Intraoperative Record and any orders documented therein. Any exception s are noted below.
--- NOTE | 2017-08-09 08:31 | Anesthesiology Progress Note ---
Anesthesia Post Op Note Date & Time Aug 09, 2017 at 08:31 Vital Signs Pain Intensity: 0 Vital Signs Past 12 Hours Date Time Temp Pulse Resp B/P (MAP) Pulse Ox O2 Delivery O2 Flow Rate FiO2 08/09/17 08:27 125/68 08/09/17 08:26 98/74 08/09/17 08:24 36.7 67 16 125/68 (77) 98 Room Air 08/09/17 08:23 69 15 08/09/17 08:23 69 15 96 08/09/17 08:21 95/66 08/09/17 08:18 70 14 08/09/17 08:18 70 14 99 08/09/17 08:17 72 15 98 08/09/17 08:17 72 15 08/09/17 08:16 103/51 08/09/17 08:12 72 13 99 08/09/17 08:12 72 13 08/09/17 08:11 110/66 08/09/17 08:07 72 17 88/57 99 08/09/17 08:07 71 17 08/09/17 08:02 69 8 08/09/17 08:02 69 8 98 08/09/17 08:01 96/67 08/09/17 07:58 108/61 08/09/17 07:57 70 7 08/09/17 07:57 73 7 97 08/09/17 07:57 36.3 70 18 108/61 (72) 97 Oxymask 10 08/09/17 06:41 37.4 74 18 193/87 (122) 97 Room Air Notes Mental Status: alert / awake / arousable, participated in evaluation Pt Amnestic to Procedure: Yes Nausea / Vomiting: adequately controlled Pain: adequately controlled Airway Patency, RR, SpO2: stable & adequate BP & HR: stable & adequate Hydration State: stable & adequate Anesthetic Complications: no major complications apparent
[2017-08-09 08:46] VITALS: BP 127/61; PULSE 66; TEMP 36.6; O2SAT 93
[2017-08-09 09:33] VITALS: BP 183/86; PULSE 65; TEMP 36.8; O2SAT 96
--- NOTE | 2017-08-11 10:46 | EDITING REQUIRED CODING QUERY ---
DEBRIDEMENT DOCUMENTATION To promote full compliance with coding requirements relating to patient care, physician participation is requested in all cases of candy packer uncertainty. Please assist us with the question(s) below: Please provide further information regarding the debridement performed on 08/09/17. Please place an X in the parenthesis (x). If other, please document the finding: Type of Debridement: (X ) Excisional Debridement- Cutting away necrotic, devitalized tissue or slough to the level of viable tissue using a sharp instrument (i.e. scalpel, scissors, etc.) ( ) Non Excisional Debridement- The removal of necrotic, devitalized tissue or slough by means of scraping, mechanical brushing, flushing, or washing (i.e. irrigation, whirlpool);minor removal of loose fragments. ( ) Other (please specify): Instrument Used: ( ) Scissors (X) Scalpel (X ) Curette ( ) Other (please specify): Depth of Debridement: (X ) Skin (X ) Skin and Subcutaneous Tissue ( ) Skin, Subcutaneous Tissue and Muscle ( ) Skin, Subcutaneous Tissue, Muscle and Bone ( ) Other (please specify): Thank you for your assistance, Blanche Koehler - Cnc Manufacturing Engineer
== END | disposition home or self-care (01) ==
LOC: C.ACU 06:03
PROVIDERS: ATTEND Surgery
DX: L02.212 Cutaneous abscess of back [any part, except buttock and flank] (principal); E11.21 Type 2 diabetes mellitus with diabetic nephropathy; I25.10 Atherosclerotic heart disease of native coronary artery without angina pectoris; J30.9 Allergic rhinitis, unspecified; F32.9 Major depressive disorder, single episode, unspecified; G47.31 Primary central sleep apnea; I50.9 Heart failure, unspecified; K21.9 Gastro-esophageal reflux disease without esophagitis; I12.9 Hypertensive chronic kidney disease with stage 1 through stage 4 chronic kidney disease, or unspecified chronic kidney disease; M79.7 Fibromyalgia; Z91.040 Latex allergy status; Z79.82 Long term (current) use of aspirin; Z79.4 Long term (current) use of insulin; Z87.891 Personal history of nicotine dependence; Z82.49 Family history of ischemic heart disease and other diseases of the circulatory system

== ENCOUNTER → 2017-08-29 | Outpatient (CLI) | payer OTHER ==
[~2017-08-29] MED LIST changes: -ATROPINE SULFATE 0.1 MG/ML 5ML SYR IV PRN; -CEFAZOLIN 2000MG IV PUSH 15 ML IV SCH; -CEPH500C2 PO; -EpHEDrine SULFATE INJ 50 MG/ML AMP IV PRN; -FENTANYL CITRATE INJ 50 MCG/1 ML 2 ML VIAL IV PRN; -FENTANYL CITRATE INJ 50 MCG/1 ML 2 ML VIAL ONE; -HYDROCODONE/ACETAMIN 5/325MG TAB PO PRN; -KETAMINE HCL INJ 50 MG/ML 10 ML VIAL ONE; -LACTATED RINGER'S 1000ML 1,000 ML IV SCH; -LARYING-O-JET KIT (LTA) ONE; -LIDOCAINE HCL 1% 20 ML VIAL ONE; -LIDOCAINE HCL 2% 2 ML VIAL (20MG/ML) ONE; -MIDAZOLAM HCL 1 MG/ML 2ML VIAL ONE; -ONDANSETRON INJ 2 MG/ML 2 ML VIAL IV PRN; -ONDANSETRON INJ 2 MG/ML 2 ML VIAL ONE; -PROPOFOL IV EMULSION 10 MG/ML 20 ML VIAL IV ONE
[2017-08-29 14:40] LABS: BASO % 0.4 %; BASO ABS # 0.02 K/uL (0-0.2); EOS % 3.4 %; EOS ABS # 0.18 K/uL (0-0.5); HEMATOCRIT 35.4 % (42-52); IG# 0.01 K/uL (0.00-0.02); LYMPH % 33.5 %; LYMPH ABS # 1.77 K/uL (1.2-3.4); MEAN CELL VOLUME 89.6 fL (80-100); MEAN CORPUSCULAR HEMOGLOBIN 30.4 pg (25-34); MEAN CORPUSCULAR HGB CONC 33.9 g/dl (32-36); MEAN PLATELET VOLUME 9.5 fL (7.4-10.4); MONO % 12.3 %; MONO ABS # 0.65 K/uL (0.11-0.59); NEUT % 50.2 %; NEUT ABS # 2.65 K/uL (1.4-6.5); PLATELET COUNT 179 K/uL (130-400); RED CELL DISTRIBUTION WIDTH CV 13.7 % (11.5-14.5); RED CELL DISTRIBUTION WIDTH SD 45.3 fL (36.4-46.3); WHITE BLOOD COUNT 5.28 K/uL (4.8-10.8)
[2017-08-29 15:24] LABS: ALBUMIN 3.6 gm/dl (3.4-5.0); BLOOD UREA NITROGEN 23 mg/dl (7-18); CARBON DIOXIDE 26 mmol/L (21-32); CREATININE 1.52 mg/dl (0.60-1.40); GLUCOSE 118 mg/dl (70-99); PHOSPHORUS 3.9 mg/dl (2.5-4.9); SODIUM 141 mmol/L (136-145)
[2017-08-29 15:30] LABS: CHOLESTEROL 103 mg/dl (0-200); LDL CHOLESTEROL CALCULATED 45 mg/dl; TRANSFERRIN 245 mg/dl (200-360)
== END | disposition home or self-care (01) ==
LOC: C.LAB1850 12:51
PROVIDERS: ATTEND Internal Medicine
DX: D64.9 Anemia, unspecified (principal); N18.3 Chronic kidney disease, stage 3 (moderate); E11.22 Type 2 diabetes mellitus with diabetic chronic kidney disease

== ENCOUNTER 2023-03-28 15:52 | Inpatient (IN) ==
--- NOTE | 2023-03-28 16:00 | ED Triage Note ---
Date of Service March 28, 2023 History of Present Illness This patient was briefly evaluated while in triage. An abbreviated physical exam was performed. This patient is a 67-year-old Male who presents to the ED for evaluation of chest pain and shortness of breath that began when he was being wheeled out of his PCP appointment. Feels similar to prior CT. History of 5 bypass surgeries. States is being followed closely for anemia. Most recent hemoglobin was 7 today. Physical Exam CONSTITUTIONAL: in no acute pain or distress, resting comfortably SKIN: pink, warm, dry CARDIAC: regular rate and rhythm RESPIRATORY: in no respiratory distress, lungs clear to auscultation Initial orders for labs and / or imaging were placed and patient was placed in the waiting area until a bed is available. Please see further documentation for the full ED course.
--- NOTE | 2023-03-28 16:39 | XRay Report ---
XR chest 1V not portable HISTORY: Chest pain, nonspecific COMPARISON: Chest 05/31/2022. FINDINGS: No pneumothorax. No pleural effusions. There are low lung volumes. The heart remains mildly enlarged. There are poststernotomy changes again noted. No new focal lung consolidations to suggest pneumonia. No evidence for pulmonary edema. No acute fractures identified. IMPRESSION: Stable mild cardiomegaly. Otherwise, no acute process within the chest. ACT 112: Negative or not required by law. Electronically signed by: Cameron Alexander M.D. 03/28/2023 4:38 PM
[2023-03-28 16:44] LABS: Alanine Aminotransferase 31 U/L (7-52); Albumin Globulin Ratio 1.9 (0.9-2); Albumin Level 4.2 gm/dl (3.4-5.0); Alkaline Phosphatase 80 U/L (34-104); Anion Gap 8 (3-11); Aspartate Aminotransferase 37 U/L (13-39); BUN Creatinine Ratio 21.3 (10-20); Bilirubin,Total 0.3 mg/dl (0.2-1.0); Blood Urea Nitrogen 34 mg/dl (6-23); Calcium 9.1 mg/dl (8.6-10.3); Carbon Dioxide 24 mmol/L (21-32); Chloride 109 mmol/L (98-107); Est GFR (African American) 50.9 ml/min; Est GFR (Non-African American) 43.9 ml/min; Globulin 2.2 gm/dl (2.5-4.0); Glucose 107 mg/dl (70-99(Fasting)); Lipase 56 U/L (11-82); Potassium 4.3 mmol/L (3.5-5.1); Sodium 141 mmol/L (136-145); Total Protein 6.4 gm/dl (6.0-8.3)
[2023-03-28 16:48] LABS: Troponin I High Sensitivity 36.4 pg/ml (0-20)
[2023-03-28 16:50] LABS: INR 1.1 (0.9-1.1); Partial Thromboplastin Ratio 0.8; Partial Thromboplastin Time 23.6 Seconds (21.0-31.0); Prothrombin Time 11.5 Seconds (9.0-12.0)
--- NOTE | 2023-03-28 17:01 | Emergency Department Note ---
Impression & Plan Chest pain, Symptomatic anemia, Acute GI bleeding ED Provider Note NAME: NAILA SQUIRES AGE: 67 SEX: M : 1955 ARRIVES VIA: Walk-In INFORMANT: Patient ED PROVIDER(S): Raz Hernandez DO CHIEF COMPLAINT: chest pain HPI: Patient is a 67-year-old male with a past medical history of PAD, diabetes, CAD with CABG and CHF who presents the ER for exertional chest pain and shortness of breath which has been present for the past 2 weeks getting significantly worse. Currently is asymptomatic. Symptoms resolved with rest. Admits to no belly pain, nausea, vomiting, or diarrhea. His hemoglobin was checked and as an outpatient was low at 7 down from 8 and he was referred in with chest pain and low hemoglobin. He is getting iron infusions. ADDITIONAL HISTORY OBTAINED: Per HPI Chronic Medical/Social Conditions Affecting Care: Per HPI PAST MEDICAL HISTORY:See Below PAST SURGICAL HISTORY:See Below FAMILY HISTORY:See Below SOCIAL HISTORY:See Below HOME MEDICATIONS:See Below ALLERGIES:See Below VITALS:See Below PHYSICAL EXAMINATION: GENERAL: Sitting up in bed, alert, well appearing, well nourished, no distress, non-toxic EYE EXAM: normal conjunctiva. OROPHARYNX: no exudate, no erythema, lips, buccal mucosa, and tongue normal and mucous membranes are moist NECK: supple, no nuchal rigidity, no adenopathy, non-tender LUNGS: Clear to auscultation. Normal chest wall mechanics HEART: no murmurs, S1 normal and S2 normal ABDOMEN: abdomen soft, non-tender, normo-active bowel sounds, no masses, no rebound or guarding. RECTAL: HEM + UPPER EXTREMITIES: upper extremities are grossly normal. LOWER EXTREMITIES: No pitting edema. NEURO EXAM: Normal sensorium, cranial nerves II-XII grossly intact, normal speech, no gross weakness of arms, no gross weakness of legs. MEDICAL DECISION MAKING: Patient is a 67-year-old male who presents to the ER for exertional chest pain and shortness of breath associated with anemia. IV was established blood work was obtained. Labs show no significant leukopenia. Significant anemia at 7 down from 8 although when you review his previous hemoglobins in May of this year he was at 11. Rectally he is heme positive. He was typed and crossed and ordered PRBCs while here in the ER. INR unremarkable. BMP with creatinine 1.6. LFTs bilirubin was unremarkable. Troponin was elevated at 36. Patient was updated at bedside. Although he has EKG changes he is currently pain-free with a positive troponin did not start on heparin as I do favor this likely secondary to a GI bleed causing symptomatic anemia and his exertional chest pain and shortness of breath. External Records Reviewed: Seen by wound care today Dr. Lnider for diabetic foot ulcer Consults/Care Managements Discussions: Per MDM Triage Nursing notes reviewed. Limited review of prior medical records performed Vital Signs: reviewed and remarkable for no significant abnormalities Differential diagnosis: Cardiac ischemia, aortic dissection, pulmonary embolism, pneumothorax, pneumonia, pericarditis, myocarditis, esophageal rupture, GERD, cholecystitis, pancreatitis, musculoskeletal, as well as other pathologies. ER treatment provided: See below Diagnostics interpreted by me include EKG and cardiac monitoring as listed below: -Cardiac Monitoring: An order was placed for continuous cardiac monitoring. The monitor shows a rate of 80 with sinus rhythm. -ECG: Sinus rhythm at [address] depressions in the inferior leads as well as lateral leads which are new in comparison to old QTc 493 -Laboratory studies:Interpreted by me as stated above in MDM and shown below. Imaging studies: Xrays: As interpreted by me: Portable AP upright 1 view of the chest shows no focal CTs show: none Procedures:none Critical Care: I have personally spent 32 minutes of critical care time in the direct management of this patient. This includes bedside care, interpretation of diagnostic studies, and testing, discussion with consultants, patient, and family members, and other required patient management activities. This 32 minutes is in excess of all separately billable procedures. Past Med/Surg History Medical History (Updated 03/28/23 @ 21:52 by Raz Hernandez DO) Vascular disease Acute appendicitis Acute appendicitis Cough Surgical wound, non healing Transient ischemic attack (TIA) "couple years ago" Skin abscess Recurrent infection of skin Episodic lightheadedness CAD (coronary artery disease) s/p CABG x5 (2009) Diabetic neuropathy Osteoarthritis Scoliosis Spinal stenosis Depression Myocardial Infarction 2009 Pseudoaneurysm both femoral arteries, follows with [facility]/Dr. Billings- per cardiology records, the pseudoaneurysm was "treated with prolonged manual pressure" Sleep apnea CPAP PAD (peripheral artery disease) s/p multiple vascular interventions: left posterior tibilial artery stent, atherectomy and WORSHIP DIRECTOR of a total occlusion of the left tibial-peroneal trunk artery, atherectomy and WORSHIP DIRECTOR of 78% stenosis left superficial femoral artery/follows with [facility]/Dr. Billings CKD (chronic kidney disease), stage III baseline creatinine 1.3-2.0 per nephrology, follows with [facility]/Dr. Silva Fibromyalgia Surgical History H/O excision of mass (09/28/21) Excision of abscess mid back. Dr. Mcintosh S/P arthroscopy of right shoulder December 12, 2019 Hx of lymph node excision 1994> left neck History of tooth extraction wisdom teeth History of cardiovascular surgery s/p multiple vascular interventions: left posterior tibilial artery stent, atherectomy and WORSHIP DIRECTOR of a total occlusion of the left tibial-peroneal trunk artery, atherectomy and WORSHIP DIRECTOR of 78% stenosis left superficial femoral artery S/P cardiac catheterization 2016: "severely diseased left main, total proximal LAD, total proximal left circumflex, total proximal RCA stenoses. SVG to left circumflex marginal patent. SVG to diagonal patent. ATWOOD to LAD patent. SVG to RCA occluded. Medical therapy recommended." per 09/24/19 cardiology note S/P tonsillectomy and adenoidectomy Status post incision and drainage on back> abcess > 2019 Hx of CABG CABG x5 (2008) Stented coronary artery follows Dr. Solis Family History Brother Coronary heart disease Family/Other Myocardial infarction Stroke Heart disease Diabetes Denies family history of Ovarian cancer Prostate cancer Breast cancer Lung cancer Colorectal cancer Social History Smoking Status: Former smoker Tobacco Type: Cigarettes Second Hand Exposure: No; Do You Dip or Chew Tobacco: No; Hx Alcohol Use: No Hx Substance Use: No Preferred Language: Chinese Communication Ability: Effective Visual Impairment: No Limitations Hearing Ability: Normal Water Manager Required: No Beliefs That Will Affect Care: None marital status: Single Current Living Situation: Alone Current Living Situation Comment: [facility] current occupational status: retired Feels Safe at Home: Yes Childhood Exposure to Second-Hand Smoke: Yes Dental Care, Regularly: Yes Physical Activity Frequency: Does not Exercise Seatbelt Use: always Sunscreen Use: No Assistive Devices: BiPap, Cane, Glasses and Walker Allergies Allergies Allergy/AdvReac Type Severity Reaction Status Date / Time animal dander Allergy Intermediate Hives Verified 03/28/23 17:46 bacitracin Allergy Intermediate RASH Verified 03/28/23 17:46 iodine Allergy Intermediate RASH-AVOIDS Verified 03/28/23 17:46 SHELLFISH latex Allergy Intermediate RASH AND Verified 03/28/23 17:46 SWELLING neomycin Allergy Intermediate RASH Verified 03/28/23 17:46 polymyxin B Allergy Intermediate RASH Verified 03/28/23 17:46 gabapentin Allergy Unknown PER RECORDS Verified 03/28/23 17:46 pregabalin Allergy Unknown PER RECORDS Verified 03/28/23 17:46 adhesive AdvReac Mild ALMOST ALL Verified 03/28/23 17:46 GAUZE BANDAGES GIVE HIM A POISON TRISTAN LIKE RASH prednisone AdvReac Mild IRRITABLE Verified 03/28/23 17:46 Home Meds Home Medications Medication Instructions Recorded Confirmed biotin 1 mg capsule 1 mg PO QDL 12/12/18 03/28/23 chromium picolinate 1,000 mcg 1,000 mcg PO QDL 12/12/18 03/28/23 tablet docusate sodium 100 mg capsule 100 mg PO BID PRN Constipation 12/12/18 03/28/23 multivitamin 1 tab PO QDL 12/12/18 03/28/23 vitamins A,C,[id number] 4,296 1 cap PO BID 12/12/18 03/28/23 mcg-226 mg-90 mg capsule (PreserVision AREDS) nitroglycerin 0.4 mg sublingual 0.4 mg sublingual USEASDIRECTD PRN 02/11/19 03/28/23 tablet chest pain acetaminophen 650 mg 650 mg PO TID 01/28/20 03/28/23 tablet,extended release (Tylenol Arthritis Pain) cholecalciferol (vitamin D3) 125 125 mcg PO TID 09/27/21 03/28/23 mcg (5,000 unit) tablet (Vitamin D3) magnesium oxide 500 mg tablet 500 mg PO TID 09/27/21 03/28/23 aspirin 81 mg tablet,delayed 81 mg PO HS 05/16/22 03/28/23 release azelastine 137 mcg (0.1 %) nasal 1 - 2 spray intranasal HS 05/16/22 03/28/23 spray aerosol omega-3 fatty acids 1,000 mg 1,000 mg PO QDL 05/16/22 03/28/23 capsule zinc acetate 50 mg (zinc) capsule 50 mg PO DAILY 01/10/23 03/28/23 rivaroxaban 2.5 mg tablet 0 mg PO BID 03/28/23 03/28/23 Previous Rx's Medication Instructions Recorded famotidine 20 mg tablet 20 mg PO BID #180 tabs 08/29/19 pen needle, diabetic 32 gauge x #400 ea 05/20/20" (BD Ultra-Fine Eli Pen Needle) lancets 33 gauge (OneTouch Delica #400 ea 02/12/21 Lancets) blood sugar diagnostic #500 ea 04/19/21 OneTouch Ultra Test (blood sugar #500 ea 04/23/21 diagnostic) clindamycin phosphate 1 % lotion 1 applic topical DAILY #60 mL 02/17/22 sertraline 100 mg tablet 200 mg (2 x 100 mg) PO DAILY #180 04/11/22 tabs ferrous sulfate 325 mg (65 mg 325 mg PO BID #180 tabs 04/20/22 iron) tablet,delayed release metoprolol tartrate 50 mg tablet 50 mg PO BID #180 tabs 06/13/22 spironolactone 25 mg tablet 12.5 mg (1/2 x 25 mg) PO DAILY #45 07/05/22 tabs bumetanide 1 mg tablet 1 mg PO BID #180 tabs 07/18/22 lidocaine 4 % topical patch 1 patch topical DAILY PRN pain #10 07/26/22 (Aspercreme (lidocaine)) ea insulin glargine U-300 conc 300 65 unit (0.2167 mL) subcut HS 08/31/22 unit/mL (1.5 mL) subcutaneous pen #22.5 mL (Toujeo SoloStar U-300 Insulin) losartan 50 mg tablet 50 mg PO QDL #90 tabs 10/20/22 atorvastatin 80 mg tablet 80 mg PO QPM #90 tabs 12/12/22 darbepoetin francisco in polysorbat 100 100 mcg subcut .COMPLEX #4 mL 01/24/23 mcg/mL in polysorbate injection vitamin B complex and vitamin C 1 cap PO DAILY #90 caps 01/24/23 no.20-folic acid 1 mg capsule (Dillon Caps) fluocinonide 0.05 % topical cream 1 applic topical BID #60 grams 01/26/23 tramadol 50 mg tablet 50 mg PO TID PRN pain #90 tabs 02/20/23 isosorbide mononitrate 60 mg 60 mg PO QDL #90 tabs 03/08/23 tablet,extended release 24 hr clopidogrel 75 mg tablet 75 mg PO QDL #90 tabs 03/14/23 insulin aspart U-100 100 unit/mL 35 unit (0.35 mL) subcut TIDM #45 03/17/23 (3 mL) subcutaneous pen (Novolog mL FlexPen U-100 Insulin aspart) doxycycline hyclate 100 mg tablet 100 mg PO DAILY #30 tabs 03/21/23 Results & Data (ED) Vital Signs Vital Signs - 24 hr 03/28/23 15:56 03/28/23 16:54 03/28/23 17:02 Temperature 36.8 C Temperature Source Temporal Artery Scan Pulse Rate 80 77 Pulse Rate [Bilateral] Respiratory Rate 17 Respiratory Effort / Characteristics Non-Labored Spontaneous Respiratory Depth Normal Blood Pressure 188/73 H Blood Pressure [Right Arm] Blood Pressure Mean 111 Blood Pressure Mean [Right Arm] Blood Pressure Position Sitting Pulse Oximetry 99 98 Oxygen Delivery Method Room Air Room Air Sepsis Recent Fever Within 48 Hours No Sepsis New/Unexplained Change in Mental Status No Sepsis Action Taken by Nursing No Action Required 03/28/23 17:02 03/28/23 17:02 03/28/23 20:51 Temperature Temperature Source Pulse Rate 83 Pulse Rate [Bilateral] 70 Respiratory Rate 18 Respiratory Effort / Characteristics Respiratory Depth Blood Pressure Blood Pressure [Right Arm] 156/92 H Blood Pressure Mean Blood Pressure Mean [Right Arm] 113 Blood Pressure Position Pulse Oximetry 98 99 Oxygen Delivery Method Room Air Room Air Sepsis Recent Fever Within 48 Hours Sepsis New/Unexplained Change in Mental Status Sepsis Action Taken by Nursing Laboratory Data 03/28/23 16:09 03/28/23 16:09 Lab Results 03/28/23 03/28/23 03/28/23 Range/Units 16:09 16:10 17:20 WBC 5.96 (4.8-10.8) K/ul RBC 2.07 L (4.70-6.10) M/uL Hgb 6.9 L* (14.0-18.0) g/dl Hct 22.8 L (42.0-52.0) % MCV 110.1 H (80.0-100.0) fL MCH 33.3 (25.0-34.0) pg MCHC 30.3 L (32.0-36.0) g/dL RDW Std Deviation 70.4 H (36.4-46.3) fL RDW Coeff of Farhad 17.8 H (11.5-14.5) % Plt Count 213 (130-400) K/uL MPV 9.8 (9.4-12.4) fL Immature Gran % (Auto) 0.5 % Neut % (Auto) 70.8 % Lymph % (Auto) 16.9 % [place] % (Auto) 9.6 % Eos % (Auto) 1.5 % Baso % (Auto) 0.7 % Reticulocyte % (Auto) 10.9 H Cancelled (0.5-2.0) % Neut # (Auto) 4.22 (1.40-6.50) K/uL Lymph # (Auto) 1.01 L (1.20-3.40) K/uL [place] # (Auto) 0.57 (0.11-0.59) K/uL Eos # (Auto) 0.09 (0.00-0.50) K/uL Baso # (Auto) 0.04 (0.00-0.20) K/uL Reticulocyte # 0.23 H Cancelled (0.02-0.10) 10^6/uL Immature Gran # (Auto) 0.03 (0.01-0.20) K/uL Polychromasia 1+ Anisocytosis Present Tear Drop Cells 1+ PT 11.5 (9.0-12.0) Seconds INR 1.1 (0.9-1.1) APTT 23.6 (21.0-31.0) Seconds PTT Ratio 0.8 Sodium 141 (136-145) mmol/L Potassium 4.3 (3.5-5.1) mmol/L Chloride 109 H (98-107) mmol/L Carbon Dioxide 24 (21-32) mmol/L Anion Gap 8 (3-11) BUN 34 H (6-23) mg/dl Creatinine 1.60 H (0.6-1.4) mg/dl Est Cr Clr Drug Dosing Not Reportable Est GFR ( Amer) 50.9 ml/min Est GFR (Non-Af Amer) 43.9 ml/min BUN/Creatinine Ratio 21.3 H (10-20) Glucose 107 H (70-99(Fasting)) mg/dl Calcium 9.1 (8.6-10.3) mg/dl Iron 46 (35-175) mcg/dl TIBC 319 (250-450) mcg/dl Unsaturated IBC 273 (155-355) mcg/dl Transferrin % Sat 14 L (20-50) % Ferritin 66.9 (8-388) ng/ml Total Bilirubin 0.3 (0.2-1.0) mg/dl AST 37 (13-39) U/L ALT 31 (7-52) U/L Alkaline Phosphatase 80 (34-104) U/L Troponin I High Sens 36.4 H (0-20) pg/ml Total Protein 6.4 (6.0-8.3) gm/dl Albumin 4.2 (3.4-5.0) gm/dl Globulin 2.2 L (2.5-4.0) gm/dl Albumin/Globulin Ratio 1.9 (0.9-2) Lipase 56 (11-82) U/L Vitamin B12 172 L (180-914) pg/ml Folate > 22.30 (>5.38) ng/ml Blood Type O Positive Blood Type Recheck O Positive Antibody Screen NEGATIVE Crossmatch See Detail 03/28/23 Range/Units 19:51 WBC (4.8-10.8) K/ul RBC (4.70-6.10) M/uL Hgb (14.0-18.0) g/dl Hct (42.0-52.0) % MCV (80.0-100.0) fL MCH (25.0-34.0) pg MCHC (32.0-36.0) g/dL RDW Std Deviation (36.4-46.3) fL RDW Coeff of Farhad (11.5-14.5) % Plt Count (130-400) K/uL MPV (9.4-12.4) fL Immature Gran % (Auto) % Neut % (Auto) % Lymph % (Auto) % Burleigh % (Auto) % Eos % (Auto) % Baso % (Auto) % Reticulocyte % (Auto) (0.5-2.0) % Neut # (Auto) (1.40-6.50) K/uL Lymph # (Auto) (1.20-3.40) K/uL Burleigh # (Auto) (0.11-0.59) K/uL Eos # (Auto) (0.00-0.50) K/uL Baso # (Auto) (0.00-0.20) K/uL Reticulocyte # (0.02-0.10) 10^6/uL Immature Gran # (Auto) (0.01-0.20) K/uL Polychromasia Anisocytosis Tear Drop Cells PT (9.0-12.0) Seconds INR (0.9-1.1) APTT (21.0-31.0) Seconds PTT Ratio Sodium (136-145) mmol/L Potassium (3.5-5.1) mmol/L Chloride (98-107) mmol/L Carbon Dioxide (21-32) mmol/L Anion Gap (3-11) BUN (6-23) mg/dl Creatinine (0.6-1.4) mg/dl Est Cr Clr Drug Dosing Est GFR ( Amer) ml/min Est GFR (Non-Af Amer) ml/min BUN/Creatinine Ratio (10-20) Glucose (70-99(Fasting)) mg/dl Calcium (8.6-10.3) mg/dl Iron (35-175) mcg/dl TIBC (250-450) mcg/dl Unsaturated IBC (155-355) mcg/dl Transferrin % Sat (20-50) % Ferritin (8-388) ng/ml Total Bilirubin (0.2-1.0) mg/dl AST (13-39) U/L ALT (7-52) U/L Alkaline Phosphatase (34-104) U/L Troponin I High Sens 37.8 H (0-20) pg/ml Total Protein (6.0-8.3) gm/dl Albumin (3.4-5.0) gm/dl Globulin (2.5-4.0) gm/dl Albumin/Globulin Ratio (0.9-2) Lipase (11-82) U/L Vitamin B12 (180-914) pg/ml Folate (>5.38) ng/ml Blood Type Blood Type Recheck Antibody Screen Crossmatch Imaging Data Radiologist's Impression: Chest X-Ray 03/28/23 15:58 XR chest 1V not portable HISTORY: Chest pain, nonspecific COMPARISON: Chest 05/31/2022. FINDINGS: No pneumothorax. No pleural effusions. There are low lung volumes. The heart remains mildly enlarged. There are poststernotomy changes again noted. No new focal lung consolidations to suggest pneumonia. No evidence for pulmonary edema. No acute fractures identified. IMPRESSION: Stable mild cardiomegaly. Otherwise, no acute process within the chest. ACT 112: Negative or not required by law. Electronically signed by: Cameron Alexander M.D. 03/28/2023 4:38 PM Discharge Plan Visit Data Chief Complaint: Chest Pain Stated Complaint: CHEST PAIN, SOB ED Provider: Raz Hernandez Discharge Problem: Chest pain, Symptomatic anemia, Acute GI bleeding Forms Stand Alone Forms: [facility] Prescriptions Prescriptions: No Action famotidine 20 mg tablet 20 mg PO BID Qty: 180 3RF Rx Instructions: 1200 & 0000 (DME) pen needle, diabetic [BD Ultra-Fine Eli Pen Needle] 32 gauge x 5/32" needle See Dose Instructions .ROUTE .MEDSUPPLY Qty: 400 3RF Rx Instructions: Use four times daily (DME) lancets [OneTouch Delica Lancets] 33 gauge misc See Rx Instructions .Route Qty: 400 3RF Rx Instructions: Tests 4 times daily (DME) blood sugar diagnostic Strip See Dose Instructions .ROUTE .MEDSUPPLY Qty: 500 3RF Rx Instructions: Test blood sugars 5 times a day (DME) OneTouch Ultra Test Strip See Rx Instructions .ROUTE .MEDSUPPLY Qty: 500 3RF Rx Instructions: test 5 times daily sertraline 100 mg tablet 200 mg PO DAILY Qty: 180 3RF ferrous sulfate 325 mg (65 mg iron) tablet,delayed release (DR/EC) 325 mg PO BID Qty: 180 3RF Rx Instructions: 1200 & 0000 metoprolol tartrate 50 mg tablet 50 mg PO BID Qty: 180 3RF Rx Instructions: 1200 & 0000 bumetanide 1 mg tablet 1 mg PO BID Qty: 180 3RF Rx Instructions: 1200 & 0000 Toujeo SoloStar U-300 Insulin 300 unit/mL (1.5 mL) insulin pen 65 unit SQ HS Qty: 22.5 3RF losartan 50 mg tablet 50 mg PO QDL Qty: 90 3RF atorvastatin 80 mg tablet 80 mg PO QPM Qty: 90 3RF tramadol 50 mg tablet 50 mg PO TID PRN (Reason: pain) Qty: 90 5RF isosorbide mononitrate 60 mg tablet extended release 24 hr 60 mg PO QDL Qty: 90 3RF clopidogrel 75 mg tablet 75 mg PO QDL Qty: 90 3RF insulin aspart U-100 [Novolog FlexPen U-100 Insulin] 100 unit/mL (3 mL) insulin pen 35 unit subcut TIDM Qty: 45 5RF Rx Instructions: 35 units with meals and 10 units in QAM and HS doxycycline hyclate 100 mg tablet 100 mg PO DAILY Qty: 30 2RF Rx Instructions: Take with food spironolactone 25 mg tablet 12.5 mg PO DAILY Qty: 45 3RF zinc acetate 50 mg (zinc) capsule 50 mg PO DAILY biotin 1 mg capsule 1 mg PO QDL chromium picolinate 1,000 mcg tablet 1,000 mcg PO QDL nitroglycerin 0.4 mg tablet, sublingual 0.4 mg SL USEASDIRECTD PRN (Reason: chest pain) Patient Comments: EVERY 5 MINUTES FOR UP TO 3 DOSES PRN FOR CHEST PAIN. CALL 911 IF PAIN PERSISTS clindamycin phosphate 1 % lotion 1 applic topical DAILY Qty: 60 4RF Rx Instructions: Apply to the affected areas after showering daily docusate sodium 100 mg capsule 100 mg PO BID PRN (Reason: Constipation) multivitamin tablet 1 tab PO QDL PreserVision AREDS [id number],[id number] capsule 1 cap PO BID Rx Instructions: 1200 & 0000 acetaminophen [Tylenol Arthritis Pain] 650 mg tablet extended release 650 mg PO TID lidocaine [Aspercreme (lidocaine)] 4 % adhesive patch,medicated 1 patch topical DAILY PRN (Reason: pain) Qty: 10 0RF [place] Caps 1 mg capsule 1 cap PO DAILY Qty: 90 3RF Aranesp (in polysorbate) 100 mcg/mL solution 100 mcg subcut .COMPLEX Qty: 4 3RF Rx Instructions: 100 mcg subcutaneously every other week; hold for Hgb >11; fluocinonide 0.05 % cream 1 applic topical BID Qty: 60 0RF Rx Instructions: Apply to areas of the legs twice daily for up to 10 days as needed for flaring. cholecalciferol (vitamin D3) [Vitamin D3] 125 mcg (5,000 unit) Tablet 125 mcg PO TID Rx Instructions: 1199 - 1799 - magnesium oxide 500 mg Tablet 500 mg PO TID Rx Instructions: 1199 - 1800 - 0000 omega-3 fatty acids 1,000 mg Capsule 1,000 mg PO QDL aspirin 81 mg Tablet,Delayed Release (Dr/Ec) 81 mg PO HS azelastine 137 mcg (0.1 %) aerosol,spray 1 - 2 spray intranasal HS Rx Instructions: USE 1-2 SPRAYS EACH NOSTRIL AT BEDTIME.; administer into each nostril rivaroxaban 2.5 mg tablet 0 mg PO BID Rx Instructions: must administer with meal. Original directions: 2.5mg by mouth twice daily. Patient states this medication is currently on hold. Referrals Referrals: Bartolo Jackson MD [Primary Care Provider] - Discharge Problem: Chest pain Qualifiers: Chest pain type: unspecified Qualified Code(s): R07.9 - Chest pain, unspecified
[2023-03-28 17:02] LABS: Hematocrit (blood only) 22.8 % (42.0-52.0); Hemoglobin 6.9 g/dl (14.0-18.0); Mean Corpuscular Hemoglobin 33.3 pg (25.0-34.0); Mean Corpuscular Hgb Conc 30.3 g/dL (32.0-36.0); Mean Corpuscular Volume 110.1 fL (80.0-100.0); Mean Platelet Volume 9.8 fL (9.4-12.4); Platelet Count 213 K/uL (130-400); RDW Coefficient of Variation 17.8 % (11.5-14.5); RDW Standard Deviation 70.4 fL (36.4-46.3); Red Blood Count 2.07 M/uL (4.70-6.10); White Blood Count 5.96 K/ul (4.8-10.8)
[2023-03-28] MEDS ORDERED: SODIUM CHLORIDE 0.9% 250 ML IV PRN ×2 (17:02→19:57)
[2023-03-28 17:06] LABS: Anisocytosis Present; Basophils # (auto) 0.04 K/uL (0.00-0.20); Basophils % (auto) 0.7 %; Eosinophils # (auto) 0.09 K/uL (0.00-0.50); Eosinophils % (auto) 1.5 %; Immature Granulocytes # (auto) 0.03 K/uL (0.01-0.20); Immature Granulocytes % (auto) 0.5 %; Lymphocytes # (auto) 1.01 K/uL (1.20-3.40); Lymphocytes % (auto) 16.9 %; Monocytes # (auto) 0.57 K/uL (0.11-0.59); Monocytes % (auto) 9.6 %; Neutrophils # (auto) 4.22 K/uL (1.40-6.50); Neutrophils % (auto) 70.8 %; Polychromasia 1+; Tear Drop Cells 1+
[2023-03-28 17:39] LABS: Reticulocyte % 10.9 % (0.5-2.0); Reticulocytes # 0.23 10^6/uL (0.02-0.10)
[2023-03-28 18:09] LABS: Ferritin 66.9 ng/ml (8-388)
[2023-03-28 18:14] LABS: Folate (Folic Acid),Ser orPlas > 22.30 ng/ml (>5.38)
[2023-03-28 18:15] LABS: Vitamin B12 172 pg/ml (180-914)
--- NOTE | 2023-03-28 19:09 | History & Physical Report ---
Date of Service March 28, 2023 Assessment & Plan (1) Exertional chest pain: Plan: This appears to be more than just his anemia alone given significant change in symptoms but only minimal change in anemia. Will transfuse to aim Hgb > 9 and consult cardiology to consider cardiac catheterization Stop rivaroxaban. Risk > benefit of heparin in the interim Continue ASA, clopidogrel, ISMN, losartan, metoprolol, atorvastatin TTE (2) Acute GI bleeding: Plan: Continue aspirin and clopidogrel due to concern for angina. Will hold dabigatran to allow cardiac cath if necessary once hemoglobin > 9. Suspect bleed is slow even in setting of ASA/clopidogrel/dabigatran given slow drop Planning on colonoscopy as outpatient per patient Consider GI consult here if Hgb not stable (3) Symptomatic anemia: Plan: Aim Hgb > 9 as above Suspect combination of slow GI bleed and B12 deficiency (4) B12 deficiency: Plan: Family history of pernicious anemia Macrocytic anemia Start B12 1000mcg IM for 7 days, recommend continued IM replacement as outpatient at least initially (5) PAD (peripheral artery disease): Plan: Continue ASA, clopidogrel, atorvastatin (6) Diabetic foot ulcer: Plan: Consult wound care nurse (7) Diabetes mellitus, type 2: Plan: Hemoglobin A1C 5.1 in October, repeat with AM labs Reduce Lantus 65 -> 40 units daily as differing diet as inpatient Novolog: --Goal BSG Range: Low 110 mg/dL, High 140 mg/dL --Correction Factor: 30 mg/dL/unit --Carbohydrate ratio = 10 g/unit --BSGs ACHS if eating, q6h if npo Consult pharmacy for ongoing glycemic control (8) Obstructive sleep apnea: Plan: CPAP HS (9) Hypertension: Plan: Continue usual home medications (10) Esophageal reflux: Plan: Continue famotidine (11) CHF (congestive heart failure), NYHA class II: Plan: Appears euvolemic at this time Continue usual Bumex/spironolactone dosing (12) Hidradenitis suppurativa: Plan: Continue his usual doxycycline Plan VTE Prophyalxis - restart rivaroxaban once cardiac cath decision decided Diet - heart healthy, T2DM, NPO after midnight Disposition - admit to PCU Admission and Anticipated Discharge Date Admission Date: March 28, 2023 History of Present Illness Chief Complaint: Shortness of breath and chest pain Primary Care Provider: Bartolo Jackson MD Eduardo Acevedo is a 67 year old male who presents to the ER with chest pain and shortness of breath on exertion. He reports this started after having iron transfusions and has been getting progressively worse over the last 2 weeks with him being able to walk less distance until he has the chest pain. Pain is to the left center of the sternum and radiates to his jaw. Maximum severity 4-5/10. Maximum duration 30 minutes. Resolves with rest. No associated diaphoresis or nausea. No orthopnea or PND. In the ER he was noted to be more anemic than usual with Hgb 6.9 from 8.2 2 weeks previously. He takes iron supplements so his stool is always black bu no acute changes. No hematemesis, epistaxis, hematuria, abdominal pain, nausea or vomiting. He does have a planned colonoscopy next month as a workup for his chronic anemia. He reports his father had pernicious anemia. He has a significant history of 5 vessel bypass in 2008 (having epigastric fullness after meals at that time). Cardiac cath in 2010 showed 2 of his 5 bypass vessels were occluded. He also has a significant history of peripheral artery disease with multiple stent procedures. He follows with the wound clinic for ongoing arterial ulcers especially of his left lower extremity. Allergies Allergy/AdvReac Type Severity Reaction Status Date / Time animal dander Allergy Intermediate Hives Verified 03/28/23 17:46 bacitracin Allergy Intermediate RASH Verified 03/28/23 17:46 iodine Allergy Intermediate RASH-AVOIDS Verified 03/28/23 17:46 SHELLFISH latex Allergy Intermediate RASH AND Verified 03/28/23 17:46 SWELLING neomycin Allergy Intermediate RASH Verified 03/28/23 17:46 polymyxin B Allergy Intermediate RASH Verified 03/28/23 17:46 gabapentin Allergy Unknown PER RECORDS Verified 03/28/23 17:46 pregabalin Allergy Unknown PER RECORDS Verified 03/28/23 17:46 adhesive AdvReac Mild ALMOST ALL Verified 03/28/23 17:46 GAUZE BANDAGES GIVE HIM A POISON TRISTAN LIKE RASH prednisone AdvReac Mild IRRITABLE Verified 03/28/23 17:46 Home Medications Medication Instructions Recorded Confirmed Type biotin 1 mg capsule 1 mg PO QDL 12/12/18 03/28/23 History chromium picolinate 1,000 mcg 1,000 mcg PO QDL 12/12/18 03/28/23 History tablet docusate sodium 100 mg capsule 100 mg PO BID PRN Constipation 12/12/18 03/28/23 History multivitamin 1 tab PO QDL 12/12/18 03/28/23 History vitamins A,C,E-lask-hgsnwx 4,296 1 cap PO BID 12/12/18 03/28/23 History mcg-226 mg-90 mg capsule (PreserVision AREDS) nitroglycerin 0.4 mg sublingual 0.4 mg sublingual USEASDIRECTD PRN 02/11/19 03/28/23 History tablet chest pain famotidine 20 mg tablet 20 mg PO BID #180 tabs 08/29/19 03/28/23 Rx acetaminophen 650 mg 650 mg PO TID 01/28/20 03/28/23 History tablet,extended release (Tylenol Arthritis Pain) pen needle, diabetic 32 gauge x #400 ea 05/20/20 03/28/23 Rx 5/32" (BD Ultra-Fine Eli Pen Needle) lancets 33 gauge (OneTouch Delica #400 ea 02/12/21 03/28/23 Rx Lancets) blood sugar diagnostic #500 ea 04/19/21 03/28/23 Rx OneTouch Ultra Test (blood sugar #500 ea 04/23/21 03/28/23 Rx diagnostic) cholecalciferol (vitamin D3) 125 125 mcg PO TID 09/27/21 03/28/23 History mcg (5,000 unit) tablet (Vitamin D3) magnesium oxide 500 mg tablet 500 mg PO TID 09/27/21 03/28/23 History clindamycin phosphate 1 % lotion 1 applic topical DAILY #60 mL 02/17/22 03/28/23 Rx sertraline 100 mg tablet 200 mg (2 x 100 mg) PO DAILY #180 04/11/22 03/28/23 Rx tabs ferrous sulfate 325 mg (65 mg 325 mg PO BID #180 tabs 04/20/22 03/28/23 Rx iron) tablet,delayed release aspirin 81 mg tablet,delayed 81 mg PO HS 05/16/22 03/28/23 History release azelastine 137 mcg (0.1 %) nasal 1 - 2 spray intranasal HS 05/16/22 03/28/23 History spray aerosol omega-3 fatty acids 1,000 mg 1,000 mg PO QDL 05/16/22 03/28/23 History capsule metoprolol tartrate 50 mg tablet 50 mg PO BID #180 tabs 06/13/22 03/28/23 Rx spironolactone 25 mg tablet 12.5 mg (1/2 x 25 mg) PO DAILY #45 07/05/22 03/28/23 Rx tabs bumetanide 1 mg tablet 1 mg PO BID #180 tabs 07/18/22 03/28/23 Rx lidocaine 4 % topical patch 1 patch topical DAILY PRN pain #10 07/26/22 03/28/23 Rx (Aspercreme (lidocaine)) ea insulin glargine U-300 conc 300 65 unit (0.2167 mL) subcut HS 08/31/22 03/28/23 Rx unit/mL (1.5 mL) subcutaneous pen #22.5 mL (Toujeo SoloStar U-300 Insulin) losartan 50 mg tablet 50 mg PO QDL #90 tabs 10/20/22 03/28/23 Rx atorvastatin 80 mg tablet 80 mg PO QPM #90 tabs 12/12/22 03/28/23 Rx zinc acetate 50 mg (zinc) capsule 50 mg PO DAILY 01/10/23 03/28/23 History darbepoetin francisco in polysorbat 100 100 mcg subcut .COMPLEX #4 mL 01/24/23 03/28/23 Rx mcg/mL in polysorbate injection vitamin B complex and vitamin C 1 cap PO DAILY #90 caps 01/24/23 03/28/23 Rx no.20-folic acid 1 mg capsule (Cotton Caps) fluocinonide 0.05 % topical cream 1 applic topical BID #60 grams 01/26/23 03/28/23 Rx tramadol 50 mg tablet 50 mg PO TID PRN pain #90 tabs 02/20/23 03/28/23 Rx isosorbide mononitrate 60 mg 60 mg PO QDL #90 tabs 03/08/23 03/28/23 Rx tablet,extended release 24 hr clopidogrel 75 mg tablet 75 mg PO QDL #90 tabs 03/14/23 03/28/23 Rx insulin aspart U-100 100 unit/mL 35 unit (0.35 mL) subcut TIDM #45 03/17/23 03/28/23 Rx (3 mL) subcutaneous pen (Novolog mL FlexPen U-100 Insulin aspart) doxycycline hyclate 100 mg tablet 100 mg PO DAILY #30 tabs 03/21/23 03/28/23 Rx rivaroxaban 2.5 mg tablet 0 mg PO BID 03/28/23 03/28/23 History Past Med/Surg History Medical History (Updated 03/29/23 @ 07:05 by Jayson Brown MD) Vascular disease Acute appendicitis Acute appendicitis Cough Surgical wound, non healing Transient ischemic attack (TIA) "couple years ago" Skin abscess Recurrent infection of skin Episodic lightheadedness CAD (coronary artery disease) s/p CABG x5 (2008) Diabetic neuropathy Osteoarthritis Scoliosis Spinal stenosis Depression Myocardial Infarction 2008 Pseudoaneurysm both femoral arteries, follows with [facility]/Dr. Billings- per cardiology records, the pseudoaneurysm was "treated with prolonged manual pressure" Sleep apnea CPAP PAD (peripheral artery disease) s/p multiple vascular interventions: left posterior tibilial artery stent, atherectomy and SCOWMAN of a total occlusion of the left tibial-peroneal trunk artery, atherectomy and SCOWMAN of 78% stenosis left superficial femoral artery/follows with [facility]/Dr. Billings CKD (chronic kidney disease), stage III baseline creatinine 1.3-2.0 per nephrology, follows with [facility]/Dr. Silva Fibromyalgia Surgical History H/O excision of mass (09/28/21) Excision of abscess mid back. Dr. Mcintosh S/P arthroscopy of right shoulder December 12, 2019 Hx of lymph node excision 1994> left neck History of tooth extraction wisdom teeth History of cardiovascular surgery s/p multiple vascular interventions: left posterior tibilial artery stent, atherectomy and SCOWMAN of a total occlusion of the left tibial-peroneal trunk artery, atherectomy and SCOWMAN of 78% stenosis left superficial femoral artery S/P cardiac catheterization 2016: "severely diseased left main, total proximal LAD, total proximal left circumflex, total proximal RCA stenoses. SVG to left circumflex marginal patent. SVG to diagonal patent. ATWOOD to LAD patent. SVG to RCA occluded. Medical therapy recommended." per 09/24/19 cardiology note S/P tonsillectomy and adenoidectomy Status post incision and drainage on back> abcess > 2019 Hx of CABG CABG x5 (2008) Stented coronary artery follows Dr. 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 Beliefs That Will Affect Care: None marital status: Single Current Living Situation: Alone Current Living Situation Comment: [facility] apartment current occupational status: retired Other Information That Helps Us Care for You: No Feels Safe at Home: Yes Safety Concerns: Feels Safe At This Time Childhood Exposure to Second-Hand Smoke: Yes Dental Care, Regularly: Yes Physical Activity Frequency: Does not Exercise Seatbelt Use: always Sunscreen Use: No Assistive Devices: BiPap, Cane, Glasses and Walker Review of Systems Review of Systems: All systems reviewed & are unremarkable except as noted in HPI & below Physical Exam Constitutional: WD/WN, vitals as above Eyes: PERRL, conjunctivae normal, anicteric sclerae ENMT: external ear and nose normal, oropharynx normal Neck: trachea midline, no thyromegaly Respiratory: normal respiratory effort, lungs clear to auscultation Cardiovascular: Rate/Rhythm: regular rate and regular rhythm Heart Sounds: no murmur Extremities: normal capillary refill and + pedal edema (1+ pitting b/l equal); no calf tenderness Gastrointestinal (Abdomen): normal bowel sounds, soft, nontender, no hepatosplenomegaly Musculoskeletal: no cyanosis or clubbing, extremities motor strength 5/5 Skin: Right base of 5th toe ulcer dime sized without surrounding cellulitis changes Neurologic: moves all extremities and awake; not confused Psychiatric: A+Ox3, euthymic affect Genitourinary: no CVA tenderness Results & Data Results & Data Vital Signs (Past 12 Hours) Vital Signs Temp Pulse Pulse Resp BP BP Pulse Ox 03/28/23 17:02 99 03/28/23 17:02 70 18 156/92 H 98 03/28/23 17:02 98 03/28/23 15:56 36.8 C 80 17 188/73 H 99 O2 Del Method 03/28/23 17:02 Room Air 03/28/23 17:02 Room Air 03/28/23 17:02 Room Air 03/28/23 15:56 Room Air Laboratory Results Abnormal lab results 03/28/23 03/28/23 03/28/23 Range/Units 16:09 16:10 17:20 RBC 2.07 L (4.70-6.10) M/uL Hgb 6.9 L* (14.0-18.0) g/dl Hct 22.8 L (42.0-52.0) % MCV 110.1 H (80.0-100.0) fL MCHC 30.3 L (32.0-36.0) g/dL RDW Std Deviation 70.4 H (36.4-46.3) fL RDW Coeff of Farhad 17.8 H (11.5-14.5) % Reticulocyte % (Auto) 10.9 H (0.5-2.0) % Lymph # (Auto) 1.01 L (1.20-3.40) K/uL Reticulocyte # 0.23 H (0.02-0.10) 10^6/uL Chloride 109 H (98-107) mmol/L BUN 34 H (6-23) mg/dl Creatinine 1.60 H (0.6-1.4) mg/dl BUN/Creatinine Ratio 21.3 H (10-20) Glucose 107 H (70-99(Fasting)) mg/dl Transferrin % Sat 14 L (20-50) % Troponin I High Sens 36.4 H (0-20) pg/ml Globulin 2.2 L (2.5-4.0) gm/dl Vitamin B12 172 L (180-914) pg/ml Crossmatch See Detail Diagnostic Findings XR chest 1V not portable HISTORY: Chest pain, nonspecific COMPARISON: Chest 05/31/2022. FINDINGS: No pneumothorax. No pleural effusions. There are low lung volumes. The heart remains mildly enlarged. There are poststernotomy changes again noted. No new focal lung consolidations to suggest pneumonia. No evidence for pulmonary edema. No acute fractures identified. IMPRESSION: Stable mild cardiomegaly. Otherwise, no acute process within the chest. Medications Administered ER Medications Given: 2 units packed RBCs ECG Rate (beats per minute): 83 Rhythm: normal sinus Findings: no acute ischemic change Comparison ECG Date: from (September 24, 2021) Change: the following changes noted (ST no longer elevated in anterior leads, TWO in inferior leads, less evident in lateral leads) Code Status & VTE Plan Code Status Full VTE Prophylaxis Plan VTE Prophylaxis will be ordered: Yes PG Care Time/CCT Total # of Minutes Spent Total Time Spent with Patient: Total time spent is greater than 50% in coordination of care (as documented) at patient's floor/unit and/or counseling patient: Coding Level of Care Code 63095 INT INP/OBS CARE 3/75MIN Diagnoses Exertional chest pain R07.9 Acute GI bleeding K92.2 Symptomatic anemia D64.9 B12 deficiency E53.8 PAD (peripheral artery disease) I73.9 Diabetic foot ulcer E11.621; L97.509 Diabetes mellitus, type 2 E11.9 Obstructive sleep apnea G47.33 Hypertension I10 Esophageal reflux K21.9 CHF (congestive heart failure), NYHA class II I50.9 Hidradenitis suppurativa L73.2
[2023-03-28] MEDS ORDERED: CYANOCOBALAMIN 1000 MCG/ML VIAL IM ONE (20:21)
[2023-03-28] MEDS ORDERED: LANTUS PER UNIT CHARGE SQ SCH (22:18)
[2023-03-28] MEDS ORDERED: LIDOCAINE 5% 1 PATCH TD PRN (23:25)
[2023-03-29] MEDS: LOSARTAN POTASSIUM 50 MG TAB PO SCH ×2 (00:22→14:09)
[2023-03-29] MEDS: METOPROLOL TARTRATE 50 MG TAB PO SCH ×2 (00:22→12:48)
[2023-03-29] MEDS: ISOSORBIDE MONO EXTENDED REL 60 MG TABCR PO SCH ×2 (00:22→14:10)
[2023-03-29] MEDS: ATORVASTATIN 40 MG TAB PO SCH ×2 (00:23→20:54)
[2023-03-29] MEDS: FERROUS SULFATE 325 MG TAB PO SCH ×3 (00:23→20:50)
[2023-03-29] MEDS: SERTRALINE HCL 100 MG TABLET PO SCH ×2 (00:23→08:30)
[2023-03-29] MEDS: FAMOTIDINE 20 MG TAB PO SCH ×2 (00:23→14:10)
[2023-03-29] MEDS: ASPIRIN 81 MG ECTAB PO SCH ×2 (00:23→20:50)
[2023-03-29] MEDS: CEROVITE ADV FORMULA TAB PO SCH (00:24)
[2023-03-29] MEDS: BUMETANIDE 1 MG TAB PO SCH ×3 (00:25→20:50)
[2023-03-29] MEDS: PANTOprazole 40 MG in SYRINGE 0 ML IV SCH ×3 (00:25→20:55)
[2023-03-29] MEDS: CLOPIDOGREL BISULFATE 75 MG TAB PO SCH ×2 (00:26→12:48)
[2023-03-29] MEDS: MAGNESIUM OXIDE 400 MG TAB PO SCH ×3 (00:56→20:50)
[2023-03-29] MEDS ORDERED: GLUCOSE 10 TAB/TUBE PO PRN (01:05)
[2023-03-29] MEDS ORDERED: PHARMACY GLYCEMIC MGMT CONSULT PRN (01:05)
[2023-03-29] MEDS ORDERED: CARBOHYDRATES FOR HYPOGLYCEMIA PO PRN (01:05)
[2023-03-29] MEDS ORDERED: GLUCAGON FOR INJ 1 MG VIAL SQ PRN (01:05)
[2023-03-29] MEDS ORDERED: GLUCOSE 40% GEL 15 GM TUBE PO PRN (01:05)
[2023-03-29] MEDS ORDERED: DEXTROSE 50% 50 ML SYRINGE IV PRN (01:05)
[2023-03-29] MEDS: traMADol HCL 50 MG TABLET PO PRN ×2 (04:10→20:52)
[2023-03-29] MEDS: INSULIN ASPART PER UNIT CHARGE SC SCH ×3 (06:18→20:53)
[2023-03-29 07:28] LABS: Hematocrit (blood only) 24.7 % (42.0-52.0); Hemoglobin 7.6 g/dl (14.0-18.0); Mean Corpuscular Hemoglobin 31.3 pg (25.0-34.0); Mean Corpuscular Hgb Conc 30.8 g/dL (32.0-36.0); Mean Corpuscular Volume 101.6 fL (80.0-100.0); Platelet Count 177 K/uL (130-400); RDW Coefficient of Variation 21.5 % (11.5-14.5); RDW Standard Deviation 80.6 fL (36.4-46.3); Red Blood Count 2.43 M/uL (4.70-6.10); White Blood Count 4.82 K/ul (4.8-10.8)
[2023-03-29 07:49] LABS: BUN Creatinine Ratio 19.2 (10-20); Calcium 8.8 mg/dl (8.6-10.3); Creatinine Clr Calc Pharmacy 65.8 ml/min; Est GFR (African American) 56.9 ml/min; Est GFR (Non-African American) 49.1 ml/min; Magnesium 2.3 mg/dl (1.7-2.4); Potassium 3.9 mmol/L (3.5-5.1)
[2023-03-29 08:03] LABS: Anisocytosis Present; Basophils # (auto) 0.04 K/uL (0.00-0.20); Basophils % (auto) 0.8 %; Eosinophils # (auto) 0.09 K/uL (0.00-0.50); Eosinophils % (auto) 1.9 %; Immature Granulocytes # (auto) 0.02 K/uL (0.01-0.20); Immature Granulocytes % (auto) 0.4 %; Lymphocytes % (auto) 18.7 %; Monocytes # (auto) 0.44 K/uL (0.11-0.59); Monocytes % (auto) 9.1 %; Neutrophils # (auto) 3.33 K/uL (1.40-6.50); Neutrophils % (auto) 69.1 %
[2023-03-29] MEDS: CYANOCOBALAMIN 1000 MCG/ML VIAL IM SCH (08:27)
[2023-03-29] MEDS: SPIRONOLACTONE 12.5 MG TAB PO SCH (08:29)
[2023-03-29] MEDS: NEPHROCAPS PO SCH (08:31)
[2023-03-29] MEDS: DOXYCYCLINE HYCLATE 100 MG CAP PO SCH (08:31)
[2023-03-29 09:06] LABS: Estimated Average Glucose 100 mg/dl; Hemoglobin A1C 5.1 % (4.5-5.6)
--- NOTE | 2023-03-29 09:35 | Gastrointestinal Consultation ---
Date of Consultation March 29, 2023 Assessment & Plan (1) Fecal occult blood test positive: (2) Symptomatic anemia: (3) Exertional chest pain: Plan Patient is a 67 y.o. male with a complex medical history admitted with profound anemia, exertional chest pain, and shortness of breath with elevated serum troponin and nonspecific ECG changes. 1. Agree with NPO for now. 2. Await cardiology evaluation to determine if patient will required PCI. 3. Continue Pantoprazole 40 mg IV BID. 4. Transfuse as per hospital protocol. Monitor s/sx of overt GIB. 5. Once cardiac clearance has been obtained, can consider diagnostic EGD or can be performed as an outpatient as he is also scheduled for diagnostic colonoscopy as well. Thank you for allowing us to participate in the care of this patient. If you have any questions or concerns, please do not hesitate to contact us. History of Present Illness Reason for Consultation: Anemia Requesting Physician: Dr. Murry Attending Physician: Butch Murry History of Present Illness Patient is a very pleasant 67 y.o. female with a history of CAD s/p stent placement, CHF, PAD, DM, HLD, NOEMY, GERD, CKD and chronic anemia admitted with exertional chest pain and BAZAN. He states that he has been feeling poorly since having an iron infusion last week. Is only able to ambulate short distances until he develops chest pain and shortness of breath. Due to this, he presented to the ER for further evaluation. Reports he is having some mild lightheadedness sitting at the bedside. No feelings of syncope. No chest pain at rest. States that for the past few months, he has been having decreased appetite but no nause a or vomiting, abdominal pain or overt GIB. His stools are reportedly dark from oral iron supplementation but no overt change in stool. Outpatient fecal occult testing was positive and he was scheduled for an outpatient colonoscopy with Dr. Ku on 04/18 in this regard. On arrival, his H&H was noted to be 6.9/22.8. H&H today is 7.6/24.7. Renal panel is stable. Troponin was significantly elevated at 37.[address] segment changes noted on ECG concerning for possible inferior ischemia. He is awaiting evaluation by Dr. Billings of interventional cardiology to determine need for cardiac catheterization. Rivaroxaban has been held. Plavix and ASA are continued. He has been placed on NPO status and started on Pantoprazole 40 mg IV BID. Allergies Allergy/AdvReac Type Severity Reaction Status Date / Time animal dander Allergy Intermediate Hives Verified 03/28/23 17:46 bacitracin Allergy Intermediate RASH Verified 03/28/23 17:46 iodine Allergy Intermediate RASH-AVOIDS Verified 03/28/23 17:46 SHELLFISH latex Allergy Intermediate RASH AND Verified 03/28/23 17:46 SWELLING neomycin Allergy Intermediate RASH Verified 03/28/23 17:46 polymyxin B Allergy Intermediate RASH Verified 03/28/23 17:46 gabapentin Allergy Unknown PER RECORDS Verified 03/28/23 17:46 pregabalin Allergy Unknown PER RECORDS Verified 03/28/23 17:46 adhesive AdvReac Mild ALMOST ALL Verified 03/28/23 17:46 GAUZE BANDAGES GIVE HIM A POISON TRISTAN LIKE RASH prednisone AdvReac Mild IRRITABLE Verified 03/28/23 17:46 Home Medications Medication Instructions Recorded Confirmed Type biotin 1 mg capsule 1 mg PO QDL 12/12/18 03/28/23 History chromium picolinate 1,000 mcg 1,000 mcg PO QDL 12/12/18 03/28/23 History tablet docusate sodium 100 mg capsule 100 mg PO BID PRN Constipation 12/12/18 03/28/23 History multivitamin 1 tab PO QDL 12/12/18 03/28/23 History vitamins A,C,A-ellr-ixefsp 4,296 1 cap PO BID 12/12/18 03/28/23 History mcg-226 mg-90 mg capsule (PreserVision AREDS) nitroglycerin 0.4 mg sublingual 0.4 mg sublingual USEASDIRECTD PRN 02/11/19 03/28/23 History tablet chest pain famotidine 20 mg tablet 20 mg PO BID #180 tabs 08/29/19 03/28/23 Rx acetaminophen 650 mg 650 mg PO TID 01/28/20 03/28/23 History tablet,extended release (Tylenol Arthritis Pain) pen needle, diabetic 32 gauge x #400 ea 05/20/20 03/28/23 Rx 5/32" (BD Ultra-Fine Eli Pen Needle) lancets 33 gauge (OneTouch Deljacqueline #400 ea 02/12/21 03/28/23 Rx Lancets) blood sugar diagnostic #500 ea 04/19/21 03/28/23 Rx OneTouch Ultra Test (blood sugar #500 ea 04/23/21 03/28/23 Rx diagnostic) cholecalciferol (vitamin D3) 125 125 mcg PO TID 09/27/21 03/28/23 History mcg (5,000 unit) tablet (Vitamin D3) magnesium oxide 500 mg tablet 500 mg PO TID 09/27/21 03/28/23 History clindamycin phosphate 1 % lotion 1 applic topical DAILY #60 mL 02/17/22 03/28/23 Rx sertraline 100 mg tablet 200 mg (2 x 100 mg) PO DAILY #180 04/11/22 03/28/23 Rx tabs ferrous sulfate 325 mg (65 mg 325 mg PO BID #180 tabs 04/20/22 03/28/23 Rx iron) tablet,delayed release aspirin 81 mg tablet,delayed 81 mg PO HS 05/16/22 03/28/23 History release azelastine 137 mcg (0.1 %) nasal 1 - 2 spray intranasal HS 05/16/22 03/28/23 History spray aerosol omega-3 fatty acids 1,000 mg 1,000 mg PO QDL 05/16/22 03/28/23 History capsule metoprolol tartrate 50 mg tablet 50 mg PO BID #180 tabs 06/13/22 03/28/23 Rx spironolactone 25 mg tablet 12.5 mg (1/2 x 25 mg) PO DAILY #45 07/05/22 03/28/23 Rx tabs bumetanide 1 mg tablet 1 mg PO BID #180 tabs 07/18/22 03/28/23 Rx lidocaine 4 % topical patch 1 patch topical DAILY PRN pain #10 07/26/22 03/28/23 Rx (Aspercreme (lidocaine)) ea insulin glargine U-300 conc 300 65 unit (0.2167 mL) subcut HS 08/31/22 03/28/23 Rx unit/mL (1.5 mL) subcutaneous pen #22.5 mL (Toujeo SoloStar U-300 Insulin) losartan 50 mg tablet 50 mg PO QDL #90 tabs 10/20/22 03/28/23 Rx atorvastatin 80 mg tablet 80 mg PO QPM #90 tabs 12/12/22 03/28/23 Rx zinc acetate 50 mg (zinc) capsule 50 mg PO DAILY 01/10/23 03/28/23 History darbepoetin francisco in polysorbat 100 100 mcg subcut .COMPLEX #4 mL 01/24/23 03/28/23 Rx mcg/mL in polysorbate injection vitamin B complex and vitamin C 1 cap PO DAILY #90 caps 01/24/23 03/28/23 Rx no.20-folic acid 1 mg capsule (Drasco Caps) fluocinonide 0.05 % topical cream 1 applic topical BID #60 grams 01/26/23 03/28/23 Rx tramadol 50 mg tablet 50 mg PO TID PRN pain #90 tabs 02/20/23 03/28/23 Rx isosorbide mononitrate 60 mg 60 mg PO QDL #90 tabs 03/08/23 03/28/23 Rx tablet,extended release 24 hr clopidogrel 75 mg tablet 75 mg PO QDL #90 tabs 03/14/23 03/28/23 Rx insulin aspart U-100 100 unit/mL 35 unit (0.35 mL) subcut TIDM #45 03/17/23 03/28/23 Rx (3 mL) subcutaneous pen (Novolog mL FlexPen U-100 Insulin aspart) doxycycline hyclate 100 mg tablet 100 mg PO DAILY #30 tabs 03/21/23 03/28/23 Rx rivaroxaban 2.5 mg tablet 0 mg PO BID 03/28/23 03/28/23 History Patient History Medical History Vascular disease Acute appendicitis Acute appendicitis Cough Surgical wound, non healing Transient ischemic attack (TIA) "couple years ago" Skin abscess Recurrent infection of skin Episodic lightheadedness CAD (coronary artery disease) s/p CABG x5 (2008) Diabetic neuropathy Osteoarthritis Scoliosis Spinal stenosis Depression Myocardial Infarction 2008 Pseudoaneurysm both femoral arteries, follows with [facility]/Dr. Billings- per cardiology records, the pseudoaneurysm was "treated with prolonged manual pressure" Sleep apnea CPAP PAD (peripheral artery disease) s/p multiple vascular interventions: left posterior tibilial artery stent, atherectomy and AUDIT PRACTICE INTERN of a total occlusion of the left tibial-peroneal trunk artery, atherectomy and AUDIT PRACTICE INTERN of 78% stenosis left superficial femoral artery/follows with [facility]/Dr. Billings CKD (chronic kidney disease), stage III baseline creatinine 1.3-2.0 per nephrology, follows with [facility]/Dr. Silva Fibromyalgia Surgical History H/O excision of mass (09/28/21) Excision of abscess mid back. Dr. Mcintosh S/P arthroscopy of right shoulder December 12, 2019 Hx of lymph node excision 1994> left neck History of tooth extraction wisdom teeth History of cardiovascular surgery s/p multiple vascular interventions: left posterior tibilial artery stent, atherectomy and AUDIT PRACTICE INTERN of a total occlusion of the left tibial-peroneal trunk artery, atherectomy and AUDIT PRACTICE INTERN of 78% stenosis left superficial femoral artery S/P cardiac catheterization 2016: "severely diseased left main, total proximal LAD, total proximal left circumflex, total proximal RCA stenoses. SVG to left circumflex marginal patent. SVG to diagonal patent. ATWOOD to LAD patent. SVG to RCA occluded. Medical therapy recommended." per 09/24/19 cardiology note S/P tonsillectomy and adenoidectomy Status post incision and drainage on back> abcess > 2019 Hx of CABG CABG x5 (2008) Stented coronary artery follows Dr. Solis Family History Brother Coronary heart disease Family/Other Myocardial infarction Stroke Heart disease Diabetes Denies family history of Ovarian cancer Prostate cancer Breast cancer Lung cancer Colorectal cancer Social History Smoking Status: Former smoker Tobacco Type: Cigarettes Second Hand Exposure: No; Do You Dip or Chew Tobacco: No; Hx Alcohol Use: No Hx Substance Use: No Preferred Language: [place] Communication Ability: Effective Visual Impairment: No Limitations Hearing Ability: Normal Strip Feeder Required: No Beliefs That Will Affect Care: None marital status: Single Current Living Situation: Alone Current Living Situation Comment: [facility] apartment current occupational status: retired Other Information That Helps Us Care for You: No Feels Safe at Home: Yes Safety Concerns: Feels Safe At This Time Childhood Exposure to Second-Hand Smoke: Yes Dental Care, Regularly: Yes Physical Activity Frequency: Does not Exercise Seatbelt Use: always Sunscreen Use: No Assistive Devices: BiPap, Cane and Walker Review of Systems Review of Systems: All systems reviewed & are unremarkable except as noted in HPI & below Physical Exam 2 Constitutional: WD/WN, vitals as above Respiratory: normal respiratory effort, lungs clear to auscultation Cardiovascular: RRR, no murmur, no edema Gastrointestinal (Abdomen): normal bowel sounds, soft, nontender, no hepatosplenomegaly Psychiatric: A+Ox3, euthymic affect Results & Data Vital Signs (Past 12 Hours) Vital Signs Temp Pulse Pulse Resp BP BP Pulse Ox 03/29/23 08:34 67 20 170/88 H 94 03/29/23 07:59 59 L 03/29/23 06:25 36.9 C 56 L 16 133/66 96 03/29/23 02:39 36.8 C 03/29/23 01:15 142/70 H 03/29/23 01:15 63 16 98 03/29/23 01:00 171/78 H 03/29/23 01:00 70 15 99 03/29/23 00:45 85 16 170/113 H 99 03/29/23 00:34 36.8 C 70 15 127/62 100 03/29/23 00:32 70 16 127/62 100 03/29/23 00:19 36.8 C 69 14 179/119 H 98 03/29/23 00:15 70 16 179/119 H 98 03/29/23 00:00 73 17 155/113 H 98 03/28/23 23:45 75 15 163/77 H 98 03/28/23 23:30 68 15 138/66 97 03/28/23 23:09 68 03/28/23 23:00 67 18 144/70 H 97 03/28/23 22:54 64 18 159/65 H 97 03/28/23 22:24 36.9 C 70 18 132/82 97 03/28/23 22:18 96 03/28/23 22:09 36.6 C 72 18 154/96 H 96 03/28/23 21:49 36.9 C 77 18 145/75 H 98 O2 Del Method O2 Flow Rate 03/29/23 08:34 Room Air 03/29/23 07:59 03/29/23 06:25 Room Air 03/29/23 02:39 03/29/23 01:15 03/29/23 01:15 03/29/23 01:00 03/29/23 01:00 03/29/23 00:45 Room Air 03/29/23 00:34 03/29/23 00:32 Room Air 03/29/23 00:19 03/29/23 00:15 Room Air 03/29/23 00:00 Room Air 03/28/23 23:45 Room Air 03/28/23 23:30 Room Air 03/28/23 23:09 03/28/23 23:00 03/28/23 22:54 0 03/28/23 22:24 03/28/23 22:18 Room Air 03/28/23 22:09 0 03/28/23 21:49 0 Diagnostic Findings Laboratory Results WBC 4.82 K/ul (4.8-10.8) 03/29/23 06:48 RBC 2.43 M/uL (4.70-6.10) L 03/29/23 06:48 Hgb 7.6 g/dl (14.0-18.0) L 03/29/23 06:48 Hct 24.7 % (42.0-52.0) L 03/29/23 06:48 MCV 101.6 fL (80.0-100.0) H D 03/29/23 06:48 MCH 31.3 pg (25.0-34.0) 03/29/23 06:48 MCHC 30.8 g/dL (32.0-36.0) L 03/29/23 06:48 RDW Std Deviation 80.6 fL (36.4-46.3) H 03/29/23 06:48 RDW Coeff of Farhad 21.5 % (11.5-14.5) H 03/29/23 06:48 Plt Count 177 K/uL (130-400) 03/29/23 06:48 MPV 10.0 fL (9.4-12.4) 03/29/23 06:48 Immature Gran % (Auto) 0.4 % 03/29/23 06:48 Neut % (Auto) 69.1 % 03/29/23 06:48 Lymph % (Auto) 18.7 % 03/29/23 06:48 Austin % (Auto) 9.1 % 03/29/23 06:48 Eos % (Auto) 1.9 % 03/29/23 06:48 Baso % (Auto) 0.8 % 03/29/23 06:48 Reticulocyte % (Auto) Cancelled 03/28/23 17:20 Neut # (Auto) 3.33 K/uL (1.40-6.50) 03/29/23 06:48 Lymph # (Auto) 0.90 K/uL (1.20-3.40) L 03/29/23 06:48 Austin # (Auto) 0.44 K/uL (0.11-0.59) 03/29/23 06:48 Eos # (Auto) 0.09 K/uL (0.00-0.50) 03/29/23 06:48 Baso # (Auto) 0.04 K/uL (0.00-0.20) 03/29/23 06:48 Reticulocyte # Cancelled 03/28/23 17:20 Immature Gran # (Auto) 0.02 K/uL (0.01-0.20) 03/29/23 06:48 Polychromasia 1+ 03/28/23 16:09 Anisocytosis Present 03/29/23 06:48 Tear Drop Cells 1+ 03/28/23 16:09 PT 11.5 Seconds (9.0-12.0) 03/28/23 16:09 INR 1.1 (0.9-1.1) 03/28/23 16:09 APTT 23.6 Seconds (21.0-31.0) 03/28/23 16:09 PTT Ratio 0.8 03/28/23 16:09 Sodium 142 mmol/L (136-145) 03/29/23 06:48 Potassium 3.9 mmol/L (3.5-5.1) 03/29/23 06:48 Chloride 110 mmol/L (98-107) H 03/29/23 06:48 Carbon Dioxide 26 mmol/L (21-32) 03/29/23 06:48 Anion Gap 6 (3-11) 03/29/23 06:48 BUN 28 mg/dl (6-23) H 03/29/23 06:48 Creatinine 1.46 mg/dl (0.6-1.4) H 03/29/23 06:48 Est Cr Clr Drug Dosing 65.8 ml/min 03/29/23 06:48 Est GFR ( Amer) 56.9 ml/min 03/29/23 06:48 Est GFR (Non-Af Amer) 49.1 ml/min 03/29/23 06:48 BUN/Creatinine Ratio 19.2 (10-20) 03/29/23 06:48 Glucose 115 mg/dl (70-99(Fasting)) H 03/29/23 06:48 POC Glucose 101 mg/dl (70-99) H 03/29/23 09:26 Estimat Average Glucose 100 mg/dl 03/29/23 06:48 Hemoglobin A1c 5.1 % (4.5-5.6) 03/29/23 06:48 Calcium 8.8 mg/dl (8.6-10.3) 03/29/23 06:48 Magnesium 2.3 mg/dl (1.7-2.4) 03/29/23 06:48 Iron 46 mcg/dl (35-175) 03/28/23 17:20 TIBC 319 mcg/dl (250-450) 03/28/23 17:20 Unsaturated IBC 273 mcg/dl (155-355) 03/28/23 17:20 Transferrin % Sat 14 % (20-50) L 03/28/23 17:20 Ferritin 66.9 ng/ml (8-388) 03/28/23 17:20 Total Bilirubin 0.3 mg/dl (0.2-1.0) 03/28/23 16:09 AST 37 U/L (13-39) 03/28/23 16:09 ALT 31 U/L (7-52) 03/28/23 16:09 Alkaline Phosphatase 80 U/L (34-104) 03/28/23 16:09 Troponin I High Sens 37.8 pg/ml (0-20) H 03/28/23 19:51 Total Protein 6.4 gm/dl (6.0-8.3) 03/28/23 16:09 Albumin 4.2 gm/dl (3.4-5.0) 03/28/23 16:09 Globulin 2.2 gm/dl (2.5-4.0) L 03/28/23 16:09 Albumin/Globulin Ratio 1.9 (0.9-2) 03/28/23 16:09 Lipase 56 U/L (11-82) 03/28/23 16:09 Vitamin B12 172 pg/ml (180-914) L 03/28/23 17:20 Folate > 22.30 ng/ml (>5.38) 03/28/23 17:20 Blood Type O Positive 03/28/23 16:10 Blood Type Recheck O Positive 03/28/23 17:20 Antibody Screen NEGATIVE 03/28/23 16:10 Crossmatch See Detail 03/28/23 16:10 Impressions Chest X-Ray 03/28/23 15:58 XR chest 1V not portable HISTORY: Chest pain, nonspecific COMPARISON: Chest 05/31/2022. FINDINGS: No pneumothorax. No pleural effusions. There are low lung volumes. The heart remains mildly enlarged. There are poststernotomy changes again noted. No new focal lung consolidations to suggest pneumonia. No evidence for pulmonary edema. No acute fractures identified. IMPRESSION: Stable mild cardiomegaly. Otherwise, no acute process within the chest. ACT 112: Negative or not required by law. Electronically signed by: Cameron Alexander M.D. 03/28/2023 4:38 PM PG Care Time/CCT Total # of Minutes Spent Total Time Spent with Patient: Total time spent is greater than 50% in coordination of care (as documented) at patient's floor/unit and/or counseling patient: Coding Level of Care Code 36279 INT INP/OBS CARE 3/75MIN Diagnoses Fecal occult blood test positive R19.5 Symptomatic anemia D64.9 Exertional chest pain R07.9
[2023-03-29] MEDS: MULTIVITAMIN TAB PO SCH (14:09)
--- NOTE | 2023-03-29 14:56 | Pharmacy Report ---
Pharmacy Glycemic Short Note 2 - Date of Service March 29, 2023 - Glycemic Short BSG Results (Last 24 hours): 03/28/23 03/29/23 03/29/23 16:09 00:39 06:03 Glucose 107 H POC Glucose 88 141 H 03/29/23 03/29/23 03/29/23 06:48 09:26 12:06 Glucose 115 H POC Glucose 101 H 122 H OUTPATIENT ANTIDIABETIC REGIMEN: * Toujeo 65units Q HS * Novolog 35 units w/ meals + 10 units in AM + HS * A1c = 5.1% 03/29/23 (anemic and received x-fusion; result will be skewed and less reliable) ASSESSMENT: * Patient admitted for symptomatic anemia yesterday evening * Patient remains NPO at this time * Fasting BSG 101 this AM with 40 units Lantus on board; given ongoing NPO status, will titrate down Lantus dose further and dose per scale to decrease hypoglycemia risk * Novolog CF and CR doses were based upon outpt total daily insulin dose PLAN FOR INPATIENT GLYCEMIC CONTROL: * Basal insulin * Lantus SQ HS per scale: 0 units if BSG less than 120; 20 units if BSG 120- 200; 30 units if BSG above 200 * Bolus insulin * NovoLog per scale ACHS or Q6hrs while NPO * Goal Range: Low 110 mg/dL - High 140 mg/dL * Correction Factor: 10 mg/dL/unit * Nutritional / Prandial insulin per carb ratio of 1 unit per 4 grams CHO consumed
[2023-03-29 17:17] LABS: Hematocrit (blood only) 25.3 % (42.0-52.0); Hemoglobin 7.9 g/dl (14.0-18.0)
--- NOTE | 2023-03-29 17:33 | XCELERA ---
[id number] \\[id number]
--- NOTE | 2023-03-29 18:11 | Cardiology Consultation ---
Date of Consultation March 29, 2023 Assessment & Plan (1) Hx of CAB. Ischemic cardiomyopathy/HFrEF EF 40 to 45% 3. Mild to moderate MR 4. Severe pulmonary hypertension 5. Persistent iron deficiency anemia 6. Stage III CKD 7. Type 2 diabetes 8. Diabetic foot ulcer 9. PAD Admitted with worsening exertional shortness of breath/chest discomfort in the setting of significant anemia with hemoglobin down to 6.9. Outpatient endoscopy planned. Low suspicion current symptoms secondary to ACS. LV function largely unchanged from what described 08/2022, troponin flat. No need for cardiac catheterization at this time. Suspect symptoms are primarily driven by anemia on top of his chronic cardiac disease. Will consider stress test as an outpatient but with prior anatomy (occluded [place] arteries, patent ATWOOD and SVG to diagonal/OM in 2015) unlikely to have revascularization targets. Recommend discontinuing PAD dose Xarelto going forward. Can hold clopidogrel if concern for active bleeding. Continue current HF regimen of metoprolol, losartan, spironolactone. Continue maintenance twice daily Bumex. Reviewed patient's recent vascular testing. Arterial perfusion should be adequate to heal current diabetic foot ulcer. No plans for additional revascularization. Will follow-up with patient in AM. History of Present Illness Attending Physician: Butch Murry History of Present Illness Mr. Acevedo is a very pleasant 67-year-old man known to me from the outpatient setting from prior care of his lower extremity PAD and venous insufficiency. He follows with Dr. Solis for his cardiac care. He has a complex CAD/vascular history. He underwent 5 vessel CABG in 2008. Last cardiac catheterization in [place] in 06/2015 showed severely diseased left main, with occluded proximal LAD, proximal LCx and RCA. ATWOOD to LAD patent along with SVG to OM and SVG to diagonal. SVG to RCA occluded. Most recent echo 08/2022 at [facility] showed EF 40% with apical and distal inferior septal akinesis. Other medical issues include type 2 diabetes complicated by peripheral neuropathy and stage III CKD. Has hypertension, dyslipidemia, NOEMY. He has severe lower extremity PAD post numerous prior endovascular interventions, also prior bilateral iliac vein stenting. More recently has been dealing with persistent iron deficiency anemia. Also being treated for new lower extremity diabetic foot ulcer on lateral/plantar aspect of his right foot. Hemoglobin has been stable in the 7-8 range for the last 6 months. More recently received 3 doses of IV iron 1 week ago and states that soon thereafter developed worsened exertional shortness of breath/chest tightness. Symptoms have persisted since that time. Seen by PCP yesterday and hemoglobin noted to be down to 7. With symptoms sent to ED. ECG showed inferior/lateral ST depressions, prior septal infarct. HS TropI minimally elevated, flat in 30s. Patient transfused 2 units. Hemoglobin up from 6.9-7.9. Allergies Allergy/AdvReac Type Severity Reaction Status Date / Time animal dander Allergy Intermediate Hives Verified 03/28/23 17:46 bacitracin Allergy Intermediate RASH Verified 03/28/23 17:46 iodine Allergy Intermediate RASH-AVOIDS Verified 03/28/23 17:46 SHELLFISH latex Allergy Intermediate RASH AND Verified 03/28/23 17:46 SWELLING neomycin Allergy Intermediate RASH Verified 03/28/23 17:46 polymyxin B Allergy Intermediate RASH Verified 03/28/23 17:46 gabapentin Allergy Unknown PER RECORDS Verified 03/28/23 17:46 pregabalin Allergy Unknown PER RECORDS Verified 03/28/23 17:46 adhesive AdvReac Mild ALMOST ALL Verified 03/28/23 17:46 GAUZE BANDAGES GIVE HIM A POISON TRISTAN LIKE RASH prednisone AdvReac Mild IRRITABLE Verified 03/28/23 17:46 Home Medications Medication Instructions Recorded Confirmed Type biotin 1 mg capsule 1 mg PO QDL 12/12/18 03/28/23 History chromium picolinate 1,000 mcg 1,000 mcg PO QDL 12/12/18 03/28/23 History tablet docusate sodium 100 mg capsule 100 mg PO BID PRN Constipation 12/12/18 03/28/23 History multivitamin 1 tab PO QDL 12/12/18 03/28/23 History vitamins A,C,I-ofzn-waodci 4,296 1 cap PO BID 12/12/18 03/28/23 History mcg-226 mg-90 mg capsule (PreserVision AREDS) nitroglycerin 0.4 mg sublingual 0.4 mg sublingual USEASDIRECTD PRN 02/11/19 03/28/23 History tablet chest pain famotidine 20 mg tablet 20 mg PO BID #180 tabs 08/29/19 03/28/23 Rx acetaminophen 650 mg 650 mg PO TID 01/28/20 03/28/23 History tablet,extended release (Tylenol Arthritis Pain) pen needle, diabetic 32 gauge x #400 ea 05/20/20 03/28/23 Rx 5/32" (BD Ultra-Fine Eli Pen Needle) lancets 33 gauge (OneTouch Delica #400 ea 02/12/21 03/28/23 Rx Lancets) blood sugar diagnostic #500 ea 04/19/21 03/28/23 Rx OneTouch Ultra Test (blood sugar #500 ea 04/23/21 03/28/23 Rx diagnostic) cholecalciferol (vitamin D3) 125 125 mcg PO TID 09/27/21 03/28/23 History mcg (5,000 unit) tablet (Vitamin D3) magnesium oxide 500 mg tablet 500 mg PO TID 09/27/21 03/28/23 History clindamycin phosphate 1 % lotion 1 applic topical DAILY #60 mL 02/17/22 03/28/23 Rx sertraline 100 mg tablet 200 mg (2 x 100 mg) PO DAILY #180 04/11/22 03/28/23 Rx tabs ferrous sulfate 325 mg (65 mg 325 mg PO BID #180 tabs 04/20/22 03/28/23 Rx iron) tablet,delayed release aspirin 81 mg tablet,delayed 81 mg PO HS 05/16/22 03/28/23 History release azelastine 137 mcg (0.1 %) nasal 1 - 2 spray intranasal HS 05/16/22 03/28/23 History spray aerosol omega-3 fatty acids 1,000 mg 1,000 mg PO QDL 05/16/22 03/28/23 History capsule metoprolol tartrate 50 mg tablet 50 mg PO BID #180 tabs 06/13/22 03/28/23 Rx spironolactone 25 mg tablet 12.5 mg (1/2 x 25 mg) PO DAILY #45 07/05/22 03/28/23 Rx tabs bumetanide 1 mg tablet 1 mg PO BID #180 tabs 07/18/22 03/28/23 Rx lidocaine 4 % topical patch 1 patch topical DAILY PRN pain #10 07/26/22 03/28/23 Rx (Aspercreme (lidocaine)) ea insulin glargine U-300 conc 300 65 unit (0.2167 mL) subcut HS 08/31/22 03/28/23 Rx unit/mL (1.5 mL) subcutaneous pen #22.5 mL (Toujeo SoloStar U-300 Insulin) losartan 50 mg tablet 50 mg PO QDL #90 tabs 10/20/22 03/28/23 Rx atorvastatin 80 mg tablet 80 mg PO QPM #90 tabs 12/12/22 03/28/23 Rx zinc acetate 50 mg (zinc) capsule 50 mg PO DAILY 01/10/23 03/28/23 History darbepoetin francisco in polysorbat 100 100 mcg subcut .COMPLEX #4 mL 01/24/23 03/28/23 Rx mcg/mL in polysorbate injection vitamin B complex and vitamin C 1 cap PO DAILY #90 caps 01/24/23 03/28/23 Rx no.20-folic acid 1 mg capsule ([place] Caps) fluocinonide 0.05 % topical cream 1 applic topical BID #60 grams 01/26/23 03/28/23 Rx tramadol 50 mg tablet 50 mg PO TID PRN pain #90 tabs 02/20/23 03/28/23 Rx isosorbide mononitrate 60 mg 60 mg PO QDL #90 tabs 03/08/23 03/28/23 Rx tablet,extended release 24 hr clopidogrel 75 mg tablet 75 mg PO QDL #90 tabs 03/14/23 03/28/23 Rx insulin aspart U-100 100 unit/mL 35 unit (0.35 mL) subcut TIDM #45 03/17/23 03/28/23 Rx (3 mL) subcutaneous pen (Novolog mL FlexPen U-100 Insulin aspart) doxycycline hyclate 100 mg tablet 100 mg PO DAILY #30 tabs 03/21/23 03/28/23 Rx rivaroxaban 2.5 mg tablet 0 mg PO BID 03/28/23 03/28/23 History Patient History Medical History Vascular disease Acute appendicitis Acute appendicitis Cough Surgical wound, non healing Transient ischemic attack (TIA) "couple years ago" Skin abscess Recurrent infection of skin Episodic lightheadedness CAD (coronary artery disease) s/p CABG x5 (2008) Diabetic neuropathy Osteoarthritis Scoliosis Spinal stenosis Depression Myocardial Infarction 2008 Pseudoaneurysm both femoral arteries, follows with [facility]/Dr. Billings- per cardiology records, the pseudoaneurysm was "treated with prolonged manual pressure" Sleep apnea CPAP PAD (peripheral artery disease) s/p multiple vascular interventions: left posterior tibilial artery stent, atherectomy and MULTIPLE TUBE WINDING MACHINE OPERATOR of a total occlusion of the left tibial-peroneal trunk artery, atherectomy and MULTIPLE TUBE WINDING MACHINE OPERATOR of 78% stenosis left superficial femoral artery/follows with [facility]/Dr. Billings CKD (chronic kidney disease), stage III baseline creatinine 1.3-2.0 per nephrology, follows with [facility]/Dr. Ricardo Vera Surgical History H/O excision of mass (09/28/21) Excision of abscess mid back. Dr. Mcintosh S/P arthroscopy of right shoulder December 12, 2019 Hx of lymph node excision 1994> left neck History of tooth extraction wisdom teeth History of cardiovascular surgery s/p multiple vascular interventions: left posterior tibilial artery stent, atherectomy and MULTIPLE TUBE WINDING MACHINE OPERATOR of a total occlusion of the left tibial-peroneal trunk artery, atherectomy and MULTIPLE TUBE WINDING MACHINE OPERATOR of 78% stenosis left superficial femoral artery S/P cardiac catheterization 2016: "severely diseased left main, total proximal LAD, total proximal left circumflex, total proximal RCA stenoses. SVG to left circumflex marginal patent. SVG to diagonal patent. ATWOOD to LAD patent. SVG to RCA occluded. Medical therapy recommended." per 09/24/19 cardiology note S/P tonsillectomy and adenoidectomy Status post incision and drainage on back> abcess > 2019 Hx of CABG CABG x5 (2008) Stented coronary artery follows Dr. Solis Family History Brother Coronary heart disease Family/Other Myocardial infarction Stroke Heart disease Diabetes Denies family history of Ovarian cancer Prostate cancer Breast cancer Lung cancer Colorectal cancer Social History Smoking Status: Former smoker Tobacco Type: Cigarettes Second Hand Exposure: No; Do You Dip or Chew Tobacco: No; Hx Alcohol Use: No Hx Substance Use: No Preferred Language: [place] Citizen Communication Ability: Effective Visual Impairment: No Limitations Hearing Ability: Normal Reciprocating Drill Operator Required: No Beliefs That Will Affect Care: None marital status: Single Current Living Situation: Alone Current Living Situation Comment: [facility] apartment current occupational status: retired Feels Safe at Home: Yes Childhood Exposure to Second-Hand Smoke: Yes Dental Care, Regularly: Yes Physical Activity Frequency: Does not Exercise Seatbelt Use: always Sunscreen Use: No Assistive Devices: BiPap, Cane and Walker Review of Systems Review of Systems: All systems reviewed & are unremarkable except as noted in HPI & below Physical Exam Physical Exam: General: Comfortable HEENT: Sclerae anicteric Lungs: Clear to auscultation bilaterally, no crackles or wheezes Cardiac: Regular rate and rhythm, 2/6 holosystolic at apex Vascular: 2+ radial on right, nonpalpable radial and left. Distal lower extremities warm, normal capillary refill, diminished DP/PT bilaterally Abdomen: Soft, nontender Extremities: Well perfused, trace to 1+ bilateral lower extreme edema Psych: Alert orient x3, normal affect and mood Results & Data Vital Signs (Past 12 Hours) Vital Signs Temp Pulse Pulse Resp BP Pulse Ox O2 Del Method 03/29/23 15:48 65 03/29/23 12:00 67 14 139/60 94 Room Air 03/29/23 08:34 67 20 170/88 H 94 Room Air 03/29/23 07:59 59 L 03/29/23 06:25 98.4 F 56 L 16 133/66 96 Room Air PG Care Time/CCT Total # of Minutes Spent Total Time Spent with Patient: Total time spent is greater than 50% in coordination of care (as documented) at patient's floor/unit and/or counseling patient: Coding Level of Care Code 79695 INT INP/OBS CARE 3/75MIN Diagnoses Hx of CABG Z95.1
[2023-03-29] MEDS: LANTUS PER UNIT CHARGE SQ SCH (20:54)
--- NOTE | 2023-03-29 22:08 | Hospitalist Progress Note ---
Date of Service March 29, 2023 Assessment & Plan (1) Exertional chest pain: Plan: This appears to be more than just his anemia alone given significant change in symptoms but only minimal change in anemia. Will transfuse to aim Hgb > 9 Cardiology consulted. Stop rivaroxaban. Risk > benefit of heparin in the interim Continue ASA, clopidogrel, ISMN, losartan, metoprolol, atorvastatin TTE PLaced order to hold plavix in AM of 03/30, if hemoglobin stable, ok to resume. Patient ambulated halls, patient feels better. (2) Acute GI bleeding: Plan: Continue aspirin and clopidogrel due to concern for angina. Will hold dabigatran to allow cardiac cath if necessary once hemoglobin > 9. Suspect bleed is slow even in setting of ASA/clopidogrel/dabigatran given slow drop Planning on colonoscopy as outpatient per patient COnsulted GI. appreciate input (3) Symptomatic anemia: Plan: Aim Hgb > 9 as above Suspect combination of slow GI bleed and B12 deficiency (4) B12 deficiency: Plan: Family history of pernicious anemia Macrocytic anemia Start B12 1000mcg IM for 7 days, recommend continued IM replacement as outpatient at least initially (5) PAD (peripheral artery disease): Plan: Continue ASA, clopidogrel, atorvastatin (6) Diabetic foot ulcer: Plan: Consult wound care nurse (7) Diabetes mellitus, type 2: Plan: Hemoglobin A1C 5.1 in October, repeat with AM labs Reduce Lantus 65 -> 40 units daily as differing diet as inpatient Novolog: --Goal BSG Range: Low 110 mg/dL, High 140 mg/dL --Correction Factor: 30 mg/dL/unit --Carbohydrate ratio = 10 g/unit --BSGs ACHS if eating, q6h if npo Consult pharmacy for ongoing glycemic control (8) Obstructive sleep apnea: Plan: CPAP HS (9) Hypertension: Plan: Continue usual home medications (10) Esophageal reflux: Plan: Continue famotidine (11) CHF (congestive heart failure), NYHA class II: Plan: Appears euvolemic at this time Continue usual Bumex/spironolactone dosing (12) Hidradenitis suppurativa: Plan: Continue his usual doxycycline Plan VTE Prophyalxis - restart rivaroxaban once cardiac cath decision decided Diet - heart healthy, T2DM, NPO after midnight Disposition - admit to PCU Admission and Anticipated Discharge Date Admission Date: March 28, 2023 Subjective Patient reports feeling better. AMbulated the halls with rolling walker, with decreased SOB. Review of Systems Review of Systems: All systems reviewed & are unremarkable except as noted in HPI & below Physical Exam Physical Exam: Constitutional: WD/WN, vitals as above Eyes: PERRL, conjunctivae normal, anicteric sclerae ENMT: external ear and nose normal, oropharynx normal Neck: trachea midline, no thyromegaly Respiratory: normal respiratory effort, lungs clear to auscultation Cardiovascular: Rate/Rhythm: regular rate and regular rhythm Heart Sounds: no murmur Extremities: normal capillary refill and + pedal edema (1+ pitting b/l equal); no calf tenderness Gastrointestinal (Abdomen): normal bowel sounds, soft, nontender, no h epatosplenomegaly Musculoskeletal: no cyanosis or clubbing, extremities motor strength 5/5 Skin: Right base of 5th toe ulcer dime sized without surrounding cellulitis changes Neurologic: moves all extremities and awake; not confused Psychiatric: A+Ox3, euthymic affect Genitourinary: no CVA tenderness Results & Data Results & Data Vital Signs (Past 12 Hours) Vital Signs Temp Pulse Pulse Resp BP BP Pulse Ox 03/29/23 21:06 03/29/23 19:03 77 03/29/23 19:00 36.9 C 68 18 129/83 95 03/29/23 18:00 56 L 14 95 03/29/23 18:00 128/63 03/29/23 17:56 146/73 H 03/29/23 17:56 62 13 98 03/29/23 17:30 56 L 18 03/29/23 17:00 60 26 H 03/29/23 16:30 56 L 15 03/29/23 16:00 63 15 03/29/23 15:48 65 03/29/23 15:30 58 L 16 03/29/23 15:00 62 14 03/29/23 14:30 59 L 16 03/29/23 14:00 118/55 L 03/29/23 14:00 72 20 03/29/23 13:30 68 31 H 03/29/23 13:00 68 25 H 03/29/23 12:30 69 19 03/29/23 12:05 139/60 11/22/23 12:05 63 13 03/29/23 12:00 62 17 03/29/23 12:00 67 14 139/60 94 03/29/23 11:30 62 34 H 03/29/23 11:00 60 25 H 03/29/23 10:30 63 11 L O2 Del Method O2 Flow Rate 03/29/23 21:06 Nasal Cannula 3 03/29/23 19:03 03/29/23 19:00 Room Air 03/29/23 18:00 Room Air 03/29/23 18:00 03/29/23 17:56 03/29/23 17:56 03/29/23 17:30 03/29/23 17:00 03/29/23 16:30 03/29/23 16:00 03/29/23 15:48 03/29/23 15:30 03/29/23 15:00 03/29/23 14:30 03/29/23 14:00 03/29/23 14:00 03/29/23 13:30 03/29/23 13:00 03/29/23 12:30 03/29/23 12:05 03/29/23 12:05 03/29/23 12:00 03/29/23 12:00 Room Air 03/29/23 11:30 03/29/23 11:00 03/29/23 10:30 PG Care Time/CCT Total # of Minutes Spent Total Time Spent with Patient: Total time spent is greater than 50% in coordination of care (as documented) at patient's floor/unit and/or counseling patient: Coding Level of Care Code 51002 SUB INP/OBS CARE 2/35MIN Diagnoses Exertional chest pain R07.9 Acute GI bleeding K92.2 Symptomatic anemia D64.9 B12 deficiency E53.8 PAD (peripheral artery disease) I73.9 Diabetic foot ulcer E11.621; L97.509 Diabetes mellitus, type 2 E11.9 Obstructive sleep apnea G47.33 Hypertension I10 Esophageal reflux K21.9 CHF (congestive heart failure), NYHA class II I50.9 Hidradenitis suppurativa L73.2
[2023-03-30] MEDS: INSULIN ASPART PER UNIT CHARGE SC SCH ×5 (00:02→22:05)
[2023-03-30] MEDS: METOPROLOL TARTRATE 50 MG TAB PO SCH ×2 (00:03→11:38)
[2023-03-30] MEDS: FAMOTIDINE 20 MG TAB PO SCH ×2 (00:03→11:38)
[2023-03-30] MEDS: CEROVITE ADV FORMULA TAB PO SCH (00:06)
[2023-03-30] MEDS: MAGNESIUM OXIDE 400 MG TAB PO SCH ×3 (00:07→17:52)
[2023-03-30] MEDS: traMADol HCL 50 MG TABLET PO PRN ×3 (01:54→22:24)
[2023-03-30] MEDS ORDERED: ACETAMINOPHEN 325 MG TAB PO PRN (01:59)
[2023-03-30 05:58] LABS: Hematocrit (blood only) 25.6 % (42.0-52.0); Hemoglobin 7.8 g/dl (14.0-18.0); Mean Corpuscular Hgb Conc 30.5 g/dL (32.0-36.0); Mean Corpuscular Volume 101.6 fL (80.0-100.0); Mean Platelet Volume 9.8 fL (9.4-12.4); Platelet Count 164 K/uL (130-400); RDW Coefficient of Variation 20.9 % (11.5-14.5); RDW Standard Deviation 77.5 fL (36.4-46.3); Red Blood Count 2.52 M/uL (4.70-6.10); White Blood Count 4.16 K/ul (4.8-10.8)
[2023-03-30 06:15] LABS: Anion Gap 6 (3-11); BUN Creatinine Ratio 13.9 (10-20); Blood Urea Nitrogen 21 mg/dl (6-23); C Reactive Protein < 0.50 mg/dl (0-0.5); Calcium 9.1 mg/dl (8.6-10.3); Carbon Dioxide 28 mmol/L (21-32); Chloride 110 mmol/L (98-107); Creatinine Clr Calc Pharmacy 63.7 ml/min; Est GFR (African American) 54.6 ml/min; Est GFR (Non-African American) 47.1 ml/min; Glucose 61 mg/dl (70-99(Fasting)); Potassium 3.9 mmol/L (3.5-5.1); Sodium 144 mmol/L (136-145)
[2023-03-30 06:23] LABS: Troponin I High Sensitivity 34.6 pg/ml (0-20)
--- NOTE | 2023-03-30 06:59 | Electrocardiogram Report ---
Test Reason : Blood Pressure : / mmHG Vent. Rate : 083 BPM Atrial Rate : 083 BPM P-R Int : 170 ms QRS Dur : 120 ms QT Int : 420 ms P-R-T Axes : -02 037 -29 degrees QTc Int : 493 ms Normal sinus rhythm Low voltage QRS Septal infarct (cited on or before 24-SEP-2021) Abnormal ECG When compared with ECG of 24-SEP-2021 13:47, Questionable change in initial forces of Anterior leads ST no longer elevated in Anterior leads T wave inversion now evident in Inferolateral leads T wave inversion less evident in Lateral leads Confirmed by Andres Dempsey ([id number]) on 03/30/2023 6:58:25 AM Referred By: Bartolo Lakhani Confirmed By:Andres Dempsey
[2023-03-30] MEDS: CYANOCOBALAMIN 1000 MCG/ML VIAL IM SCH (08:22)
[2023-03-30] MEDS: BUMETANIDE 1 MG TAB PO SCH ×2 (08:22→17:52)
[2023-03-30] MEDS: NEPHROCAPS PO SCH (08:23)
[2023-03-30] MEDS: DOXYCYCLINE HYCLATE 100 MG CAP PO SCH (08:23)
[2023-03-30] MEDS: SPIRONOLACTONE 12.5 MG TAB PO SCH (08:23)
[2023-03-30] MEDS: SERTRALINE HCL 100 MG TABLET PO SCH (08:23)
[2023-03-30] MEDS: PANTOprazole 40 MG in SYRINGE 0 ML IV SCH ×2 (08:23→21:59)
[2023-03-30] MEDS: FERROUS SULFATE 325 MG TAB PO SCH ×2 (08:23→22:36)
[2023-03-30] MEDS ORDERED: SODIUM CHLORIDE 0.9% 250 ML IV PRN (10:20)
--- NOTE | 2023-03-30 10:28 | Hospitalist Progress Note ---
Date of Service March 30, 2023 Assessment & Plan (1) Exertional chest pain: Plan: Appreciate cardiology review, angina improved with transfusion and TTE with no acute change therefore no plan on cardiac cath at this time and likely no revascularization targets anyway Will transfuse to aim Hgb > 9 to make sure hemoglobin no longer contributing, additional 1 units today, will repeat Hgb following this. Continue ASA, clopidogrel, ISMN, losartan, metoprolol, atorvastatin Cardiology to consider stress test as an outpatient (2) Acute GI bleeding: Plan: Pantoprazole 40 mg IV twice daily, will switch to PO once hemoglobin stability established while eating Continue aspirin and clopidogrel due to concern for angina and relative stability of hemoglobin. Discontinued Xarelto per cardiology recommendations. Suspect bleed is slow even in setting of ASA/clopidogrel/dabigatran given slow drop Appreciate GI consult -planning EGD/colonoscopy as outpatient (3) Symptomatic anemia: Plan: S/p 2 units packed red blood cells on admission aim Hgb > 9 as above, will give additional unit today and repeat labs in the afternoon Suspect combination of slow GI bleed and B12 deficiency (4) B12 deficiency: Plan: Family history of pernicious anemia Macrocytic anemia Start B12 1000mcg IM for 7 days, recommend continued IM replacement as outpatient at least initially (5) PAD (peripheral artery disease): Plan: Continue ASA, clopidogrel, atorvastatin (6) Diabetic foot ulcer: Plan: Consult wound care nurse (7) Diabetes mellitus, type 2: Plan: Hemoglobin A1C 5.1 Appreciate pharmacy consult for ongoing glycemic control He may need a reduction in his insulin dosing on discharge given his HbA1c of 5.1 (8) Obstructive sleep apnea: Plan: CPAP HS (9) Hypertension: Plan: Continue usual home medications (10) Esophageal reflux: Plan: Continue famotidine (11) CHF (congestive heart failure), NYHA class II: Plan: Appears euvolemic at this time Continue usual Bumex/spironolactone dosing (12) Hidradenitis suppurativa: Plan: Continue his usual doxycycline Plan VTE Prophylaxis - deferred chemical prophylaxis due to GI bleed, cardiology do not feel he needs to restart Xarelto Diet - heart healthy, T2DM Disposition - continue on PCU Admission and Anticipated Discharge Date Admission Date: March 28, 2023 Subjective Reports doing much better after blood transfusion. He is still having shortness of breath on exertion but no chest pain on exertion anymore. Eating well today. Review of Systems Review of Systems: All systems reviewed & are unremarkable except as noted in HPI & below Physical Exam Constitutional: WD/WN, vitals as above Respiratory: normal respiratory effort, lungs clear to auscultation Cardiovascular: Rate/Rhythm: regular rate and regular rhythm Heart Sounds: no murmur Extremities: normal capillary refill and + pedal edema (1+ pitting b/l equal); no calf tenderness Gastrointestinal (Abdomen): normal bowel sounds, soft, nontender, no hepatosplenomegaly Skin: Foot ulcer not reviewed today. Neurologic: moves all extremities and awake; not confused Psychiatric: A+Ox3, euthymic affect Results & Data Results & Data Vital Signs (Past 12 Hours) Vital Signs Temp Pulse Pulse Resp BP Pulse Ox O2 Del Method 03/30/23 07:56 36.9 C 62 18 130/73 97 Room Air 03/30/23 07:53 59 L 03/30/23 02:37 36.6 C 51 L 20 134/64 99 Room Air 03/30/23 02:20 64 03/29/23 22:41 36.6 C 64 20 136/74 98 CPAP 03/29/23 22:30 64 20 97 FiO2 03/30/23 07:56 03/30/23 07:53 03/30/23 02:37 03/30/23 02:20 03/29/23 22:41 03/29/23 22:30 21 Laboratory Results Abnormal lab results 03/28/23 03/29/23 03/30/23 Range/Units 16:10 20:33 05:25 WBC 4.16 L (4.8-10.8) K/ul RBC 2.52 L (4.70-6.10) M/uL Hgb 7.8 L (14.0-18.0) g/dl Hct 25.6 L (42.0-52.0) % MCV 101.6 H (80.0-100.0) fL MCHC 30.5 L (32.0-36.0) g/dL RDW Std Deviation 77.5 H (36.4-46.3) fL RDW Coeff of Farhad 20.9 H (11.5-14.5) % Chloride 110 H (98-107) mmol/L Creatinine 1.51 H (0.6-1.4) mg/dl Glucose 61 L (70-99(Fasting)) mg/dl POC Glucose 109 H (70-99) mg/dl Troponin I High Sens 34.6 H (0-20) pg/ml B-Natriuretic Peptide 622 H (0-100) pg/ml Crossmatch See Detail 03/30/23 Range/Units 12:40 WBC (4.8-10.8) K/ul RBC (4.70-6.10) M/uL Hgb (14.0-18.0) g/dl Hct (42.0-52.0) % MCV (80.0-100.0) fL MCHC (32.0-36.0) g/dL RDW Std Deviation (36.4-46.3) fL RDW Coeff of Farhad (11.5-14.5) % Chloride (98-107) mmol/L Creatinine (0.6-1.4) mg/dl Glucose (70-99(Fasting)) mg/dl POC Glucose 111 H (70-99) mg/dl Troponin I High Sens (0-20) pg/ml B-Natriuretic Peptide (0-100) pg/ml Crossmatch PG Care Time/CCT Total # of Minutes Spent Total Time Spent with Patient: Total time spent is greater than 50% in coordination of care (as documented) at patient's floor/unit and/or counseling patient: Coding Level of Care Code 63568 SUB INP/OBS CARE 3/50MIN Diagnoses Exertional chest pain R07.9 Acute GI bleeding K92.2 Symptomatic anemia D64.9 B12 deficiency E53.8 PAD (peripheral artery disease) I73.9 Diabetic foot ulcer E11.621; L97.509 Diabetes mellitus, type 2 E11.9 Obstructive sleep apnea G47.33 Hypertension I10 Esophageal reflux K21.9 CHF (congestive heart failure), NYHA class II I50.9 Hidradenitis suppurativa L73.2
[2023-03-30] MEDS ORDERED: Nursing to Pharmacy Communication SCH (11:00)
[2023-03-30] MEDS: ISOSORBIDE MONO EXTENDED REL 60 MG TABCR PO SCH (11:38)
[2023-03-30] MEDS: LOSARTAN POTASSIUM 50 MG TAB PO SCH (11:38)
[2023-03-30] MEDS: MULTIVITAMIN TAB PO SCH (11:38)
[2023-03-30] MEDS: CLOPIDOGREL BISULFATE 75 MG TAB PO SCH (11:38)
[2023-03-30 18:29] LABS: Hematocrit (blood only) 29.3 % (42.0-52.0); Hemoglobin 9.3 g/dl (14.0-18.0); Mean Corpuscular Hemoglobin 30.8 pg (25.0-34.0); Mean Corpuscular Hgb Conc 31.7 g/dL (32.0-36.0); Mean Platelet Volume 9.4 fL (9.4-12.4); Platelet Count 182 K/uL (130-400); RDW Coefficient of Variation 21.3 % (11.5-14.5); RDW Standard Deviation 75.4 fL (36.4-46.3); Red Blood Count 3.02 M/uL (4.70-6.10); White Blood Count 4.98 K/ul (4.8-10.8)
[2023-03-30] MEDS: ASPIRIN 81 MG ECTAB PO SCH (21:59)
[2023-03-30] MEDS: ATORVASTATIN 40 MG TAB PO SCH (22:01)
[2023-03-30] MEDS: LANTUS PER UNIT CHARGE SQ SCH (22:06)
[2023-03-31] MEDS: MAGNESIUM OXIDE 400 MG TAB PO SCH ×2 (00:29→11:39)
[2023-03-31] MEDS: FAMOTIDINE 20 MG TAB PO SCH ×2 (00:29→11:39)
[2023-03-31] MEDS: METOPROLOL TARTRATE 50 MG TAB PO SCH ×2 (00:30→11:39)
[2023-03-31] MEDS: CEROVITE ADV FORMULA TAB PO SCH (00:32)
[2023-03-31 05:51] LABS: Basophils # (auto) 0.03 K/uL (0.00-0.20); Basophils % (auto) 0.6 %; Eosinophils % (auto) 2.1 %; Hematocrit (blood only) 29.1 % (42.0-52.0); Hemoglobin 9.3 g/dl (14.0-18.0); Immature Granulocytes # (auto) 0.01 K/uL (0.01-0.20); Immature Granulocytes % (auto) 0.2 %; Lymphocytes # (auto) 0.91 K/uL (1.20-3.40); Lymphocytes % (auto) 19.2 %; Mean Corpuscular Hemoglobin 31.4 pg (25.0-34.0); Mean Corpuscular Volume 98.3 fL (80.0-100.0); Mean Platelet Volume 9.6 fL (9.4-12.4); Monocytes # (auto) 0.55 K/uL (0.11-0.59); Monocytes % (auto) 11.6 %; Neutrophils # (auto) 3.13 K/uL (1.40-6.50); Neutrophils % (auto) 66.3 %; Platelet Count 162 K/uL (130-400); RDW Coefficient of Variation 20.7 % (11.5-14.5); RDW Standard Deviation 74.7 fL (36.4-46.3); Red Blood Count 2.96 M/uL (4.70-6.10); White Blood Count 4.73 K/ul (4.8-10.8)
[2023-03-31 06:09] LABS: BUN Creatinine Ratio 11.8 (10-20); Calcium 9.5 mg/dl (8.6-10.3); Creatinine Clr Calc Pharmacy 51.4 ml/min; Est GFR (African American) 42.2 ml/min; Est GFR (Non-African American) 36.4 ml/min
[2023-03-31 06:29] LABS: Anisocytosis Present; Polychromasia 1+
[2023-03-31] MEDS: PANTOprazole 40 MG in SYRINGE 0 ML IV SCH (08:36)
[2023-03-31] MEDS: DOXYCYCLINE HYCLATE 100 MG CAP PO SCH (08:37)
[2023-03-31] MEDS: SPIRONOLACTONE 12.5 MG TAB PO SCH (08:37)
[2023-03-31] MEDS: MULTIVITAMIN TAB PO SCH (08:37)
[2023-03-31] MEDS: FERROUS SULFATE 325 MG TAB PO SCH (08:37)
[2023-03-31] MEDS: NEPHROCAPS PO SCH (08:37)
[2023-03-31] MEDS: SERTRALINE HCL 100 MG TABLET PO SCH (08:38)
[2023-03-31] MEDS: CYANOCOBALAMIN 1000 MCG/ML VIAL IM SCH (08:38)
[2023-03-31] MEDS: INSULIN ASPART PER UNIT CHARGE SC SCH (08:39)
[2023-03-31] MEDS: CLOPIDOGREL BISULFATE 75 MG TAB PO SCH (11:39)
[2023-03-31] MEDS: ISOSORBIDE MONO EXTENDED REL 60 MG TABCR PO SCH (11:39)
[2023-03-31] MEDS: LOSARTAN POTASSIUM 50 MG TAB PO SCH (11:39)
--- NOTE | 2023-03-31 14:42 | Discharge Summary ---
Date of Service March 31, 2023 Admission HPI Per Admitting Provider dEuardo Acevedo is a 67 year old male who presents to the ER with chest pain and shortness of breath on exertion. He reports this started after having iron transfusions and has been getting progressively worse over the last 2 weeks with him being able to walk less distance until he has the chest pain. Pain is to the left center of the sternum and radiates to his jaw. Maximum severity 4-5/10. Maximum duration 30 minutes. Resolves with rest. No associated diaphoresis or nausea. No orthopnea or PND. In the ER he was noted to be more anemic than usual with Hgb 6.9 from 8.2 2 weeks previously. He takes iron supplements so his stool is always black bu no acute changes. No hematemesis, epistaxis, hematuria, abdominal pain, nausea or vomiting. He does have a planned colonoscopy next month as a workup for his chronic anemia. He reports his father had pernicious anemia. He has a significant history of 5 vessel bypass in 2008 (having epigastric fullness after meals at that time). Cardiac cath in 2010 showed 2 of his 5 bypass vessels were occluded. He also has a significant history of peripheral artery disease with multiple stent procedures. He follows with the wound clinic for ongoing arterial ulcers especially of his left lower extremity. Principal Diagnosis exertional chest pain Discharge Exam Constitutional: WD/WN, vitals as above Eyes: PERRL, conjunctivae normal, anicteric sclerae ENMT: external ear and nose normal, oropharynx normal Neck: trachea midline, no thyromegaly Respiratory: normal respiratory effort, lungs clear to auscultation Cardiovascular: Rate/Rhythm: regular rate and regular rhythm Heart Sounds: no murmur Extremities: normal capillary refill and + pedal edema (1+ pitting b/l equal); no calf tenderness Gastrointestinal (Abdomen): normal bowel sounds, soft, nontender, no hepatosplenomegaly Musculoskeletal: no cyanosis or clubbing, extremities motor strength 5/5 Skin: Right base of 5th toe ulcer dime sized without surrounding cellulitis changes Neurologic: moves all extremities and awake; not confused Psychiatric: A+Ox3, euthymic affect Genitourinary: no CVA tenderness Discharge Data Allergies Allergy/AdvReac Type Severity Reaction Status Date / Time animal dander Allergy Intermediate Hives Verified 03/28/23 17:46 bacitracin Allergy Intermediate RASH Verified 03/28/23 17:46 iodine Allergy Intermediate RASH-AVOIDS Verified 03/28/23 17:46 SHELLFISH latex Allergy Intermediate RASH AND Verified 03/28/23 17:46 SWELLING neomycin Allergy Intermediate RASH Verified 03/28/23 17:46 polymyxin B Allergy Intermediate RASH Verified 03/28/23 17:46 gabapentin Allergy Unknown PER RECORDS Verified 03/28/23 17:46 pregabalin Allergy Unknown PER RECORDS Verified 03/28/23 17:46 adhesive AdvReac Mild ALMOST ALL Verified 03/28/23 17:46 GAUZE BANDAGES GIVE HIM A POISON TRISTAN LIKE RASH prednisone AdvReac Mild IRRITABLE Verified 03/28/23 17:46 Consultations 03/28/23 17:07 ED Decision to Admit Stat 03/29/23 00:11 Consult Cardiology Routine 03/29/23 08:03 Consult Gastroenterology Routine Hospital Course (1) Exertional chest pain: Appreciate cardiology review, angina improved with transfusion and TTE with no acute change therefore no plan on cardiac cath at this time and likely no revascularization targets anyway Will transfuse to aim Hgb > 9 to make sure hemoglobin no longer contributing, additional 1 units today, will repeat Hgb following this. Continue ASA, clopidogrel, ISMN, losartan, metoprolol, atorvastatin Cardiology to consider stress test as an outpatient (2) Acute GI bleeding: Pantoprazole 40 mg IV twice daily, will switch to PO once hemoglobin stability established while eating Continue aspirin and clopidogrel due to concern for angina and relative stability of hemoglobin. Discontinued Xarelto per cardiology recommendations. Suspect bleed is slow even in setting of ASA/clopidogrel/dabigatran given slow drop Appreciate GI consult -planning EGD/colonoscopy as outpatient hemoglobin stable. (3) Symptomatic anemia: S/p 2 units packed red blood cells on admission aim Hgb > 9 as above, Suspect combination of slow GI bleed and B12 deficiency (4) B12 deficiency: Family history of pernicious anemia Macrocytic anemia Start B12 1000mcg IM for 7 days, recommend continued IM replacement as outpatient at least initially (5) PAD (peripheral artery disease): Continue ASA, clopidogrel, atorvastatin (6) Diabetic foot ulcer: Consult wound care nurse (7) Diabetes mellitus, type 2: Hemoglobin A1C 5.1 Appreciate pharmacy consult for ongoing glycemic control He may need a reduction in his insulin dosing on discharge given his HbA1c of 5.1 (8) Obstructive sleep apnea: CPAP HS (9) Hypertension: Continue usual home medications (10) Esophageal reflux: Continue famotidine (11) CHF (congestive heart failure), NYHA class II: Appears euvolemic at this time Continue usual Bumex/spironolactone dosing (12) Hidradenitis suppurativa: Continue his usual doxycycline Total Time Total Time Spent Total Time Spent (In Minutes): 32 Discharge Plan Discharge Items Patient Disposition: Home - Self-Care Reason For Visit: SYMPTOMATIC ANEMIA Discharge Diagnosis: symptomatic anemia Activity: Resume your previous activity Non-emergency contact: Primary Care Provider Call non-emergency contact if: you have any medication questions Follow-up/Referrals: Bartolo Jackson MD [Primary Care Provider] - 04/07/23 3:00 pm (Will see Mallika Mohan PA-C in Dr Abbasi's office) Diet: Carb Consistent or DM2 and Heart Healthy Addtl Attending Provider Instructions: Recommend holding bumex for today. Resume this tomorrow. Hold Xarelto. Recommend followup with PCP in 1-2 weeks. Recommend followup with Gastro for upper scope and Cardiology Pending Studies at Discharge: No Stand-Alone Forms: My [employer], Smoking Cessation Medications and DC Order Prescriptions: Continued famotidine 20 mg tablet 20 mg PO BID Qty: 180 3RF Rx Instructions: 1200 & 0000 (DME) pen needle, diabetic [BD Ultra-Fine Eli Pen Needle] 32 gauge x 5/32" needle See Dose Instructions .ROUTE .MEDSUPPLY Qty: 400 3RF Rx Instructions: Use four times daily (DME) lancets [OneTouch Delica Lancets] 33 gauge misc See Rx Instructions .Route Qty: 400 3RF Rx Instructions: Tests 4 times daily (DME) blood sugar diagnostic Strip See Dose Instructions .ROUTE .MEDSUPPLY Qty: 500 3RF Rx Instructions: Test blood sugars 5 times a day (DME) OneTouch Ultra Test Strip See Rx Instructions .ROUTE .MEDSUPPLY Qty: 500 3RF Rx Instructions: test 5 times daily sertraline 100 mg tablet 200 mg PO DAILY Qty: 180 3RF ferrous sulfate 325 mg (65 mg iron) tablet,delayed release (DR/EC) 325 mg PO BID Qty: 180 3RF Rx Instructions: 1200 & 0000 metoprolol tartrate 50 mg tablet 50 mg PO BID Qty: 180 3RF Rx Instructions: 1200 & 0000 bumetanide 1 mg tablet 1 mg PO BID Qty: 180 3RF Rx Instructions: 1200 & 0000 Toujeo SoloStar U-300 Insulin 300 unit/mL (1.5 mL) insulin pen 65 unit SQ HS Qty: 22.5 3RF losartan 50 mg tablet 50 mg PO QDL Qty: 90 3RF atorvastatin 80 mg tablet 80 mg PO QPM Qty: 90 3RF tramadol 50 mg tablet 50 mg PO TID PRN (Reason: pain) Qty: 90 5RF isosorbide mononitrate 60 mg tablet extended release 24 hr 60 mg PO QDL Qty: 90 3RF clopidogrel 75 mg tablet 75 mg PO QDL Qty: 90 3RF insulin aspart U-100 [Novolog FlexPen U-100 Insulin] 100 unit/mL (3 mL) insulin pen 35 unit subcut TIDM Qty: 45 5RF Rx Instructions: 35 units with meals and 10 units in QAM and HS doxycycline hyclate 100 mg tablet 100 mg PO DAILY Qty: 30 2RF Rx Instructions: Take with food spironolactone 25 mg tablet 12.5 mg PO DAILY Qty: 45 3RF zinc acetate 50 mg (zinc) capsule 50 mg PO DAILY biotin 1 mg capsule 1 mg PO QDL chromium picolinate 1,000 mcg tablet 1,000 mcg PO QDL nitroglycerin 0.4 mg tablet, sublingual 0.4 mg SL USEASDIRECTD PRN (Reason: chest pain) Patient Comments: EVERY 5 MINUTES FOR UP TO 3 DOSES PRN FOR CHEST PAIN. CALL 911 IF PAIN PERSISTS clindamycin phosphate 1 % lotion 1 applic topical DAILY Qty: 60 4RF Rx Instructions: Apply to the affected areas after showering daily docusate sodium 100 mg capsule 100 mg PO BID PRN (Reason: Constipation) multivitamin tablet 1 tab PO QDL PreserVision AREDS [id number] capsule 1 cap PO BID Rx Instructions: 1200 & 0000 acetaminophen [Tylenol Arthritis Pain] 650 mg tablet extended release 650 mg PO TID lidocaine [Aspercreme (lidocaine)] 4 % adhesive patch,medicated 1 patch topical DAILY PRN (Reason: pain) Qty: 10 0RF Dillon Caps 1 mg capsule 1 cap PO DAILY Qty: 90 3RF darbepoetin francisco in polysorbat 100 mcg/mL solution 100 mcg subcut .COMPLEX Qty: 4 3RF Rx Instructions: 100 mcg subcutaneously every other week; hold for Hgb >11; fluocinonide 0.05 % cream 1 applic topical BID Qty: 60 0RF Rx Instructions: Apply to areas of the legs twice daily for up to 10 days as needed for flaring. cholecalciferol (vitamin D3) [Vitamin D3] 125 mcg (5,000 unit) Tablet 125 mcg PO TID Rx Instructions: 1200 - 1800 - 0000 magnesium oxide 500 mg Tablet 500 mg PO TID Rx Instructions: 1200 - 1800 - 0000 omega-3 fatty acids 1,000 mg Capsule 1,000 mg PO QDL aspirin 81 mg Tablet,Delayed Release (Dr/Ec) 81 mg PO HS azelastine 137 mcg (0.1 %) aerosol,spray 1 - 2 spray intranasal HS Rx Instructions: USE 1-2 SPRAYS EACH NOSTRIL AT BEDTIME.; administer into each nostril Discontinued rivaroxaban 2.5 mg tablet 0 mg PO BID Rx Instructions: must administer with meal. Original directions: 2.5mg by mouth twice daily. Patient states this medication is currently on hold. Discharge Orders: Discharge Order (Routine); Ordered 03/31/23 Ordered By: Butch Gant/Other Patient Handouts: Understanding Deep Vein Thrombosis, DVT Complications, Procedures for Deep Vein Thrombosis, Preventing Deep Vein Thrombosis Admission Data Admit Date/Time: 03/28/23 19:11 Attending Provider: Butch Murry Admit Provider: Jayson Brown Primary Care Provider: Bartolo Jackson V. Other Providers: Jayson Brown; Dillon Billings; Hazel Avina; Peyman Barger; Kaelyn Patel; Ava Kelly; Tessie Vera; Columba Lewis; Ricardo Ku; Zechariah Patel; Johann Roberts; Bubba Stokes; Michael Gerard S; Curtis Atkins; Keerthi Puri; Lisa Laughlin; Isa Stevens; Yary Castro; Libby Cha; Shemar Forman; Chas Mistry; Stephanie Ribeiro; Rubia Mercado Jr Other Interventions: Discharge Summary Assessment (RN) Last Done: 03/31/23 11:54 Coding Level of Care Code 60532 INP/OBS DISCH >30 MIN Diagnoses Exertional chest pain R07.9 Acute GI bleeding K92.2 Symptomatic anemia D64.9 B12 deficiency E53.8 PAD (peripheral artery disease) I73.9 Diabetic foot ulcer E11.621; L97.509 Diabetes mellitus, type 2 E11.9 Obstructive sleep apnea G47.33 Hypertension I10 Esophageal reflux K21.9 CHF (congestive heart failure), NYHA class II I50.9 Hidradenitis suppurativa L73.2
== END 2023-03-31 13:09 | disposition home or self-care (01) | DRG 812 ==
LOC: ED 15:52 → SUATTDRO 19:11 → EDINP 19:11 → 4W 22:18

== ENCOUNTER 2024-06-11 12:37 | Inpatient (IN) ==
[2024-06-11] MEDS: METOPROLOL TARTRATE 1 MG/ML VIAL IV STA (13:15)
[2024-06-11 13:24] LABS: Hematocrit (blood only) 25.3 % (42.0-52.0); Hemoglobin 7.8 g/dl (14.0-18.0); Mean Corpuscular Hemoglobin 31.2 pg (25.0-34.0); Mean Corpuscular Hgb Conc 30.8 g/dL (32.0-36.0); Mean Corpuscular Volume 101.2 fL (80.0-100.0); Mean Platelet Volume 9.9 fL (9.4-12.4); Platelet Count 171 K/uL (130-400); RDW Standard Deviation 59.5 fL (36.4-46.3); White Blood Count 3.64 K/ul (4.8-10.8)
[2024-06-11 13:30] LABS: iSTAT Creatinine 2.2 mg/dl (0.6-1.3); iSTAT Hemoglobin 7.5 g/dl (14.0-18.0); iSTAT Ionized Calcium 1.17 mmol/l (1.12-1.32); iSTAT Potassium 3.9 mmol/L (3.3-5.0)
[2024-06-11] MEDS ORDERED: SODIUM CHLORIDE 0.9% 100 ML IV PRN ×3 (13:34→21:00)
[2024-06-11] MEDS ORDERED: SODIUM CHLORIDE 0.9% 50 ML IV PRN ×3 (13:34→21:00)
[2024-06-11 13:38] LABS: Albumin Globulin Ratio 1.6 (0.9-2); Albumin Level 3.7 gm/dl (3.4-5.0); BUN Creatinine Ratio 15.5 (10-20); Bilirubin,Total 0.2 mg/dl (0.2-1.0); Calcium 9.2 mg/dl (8.6-10.3); Creatinine Clr Calc Pharmacy 47.6 ml/min; Globulin 2.3 gm/dl (2.5-4.0); Magnesium 1.7 mg/dl (1.7-2.4); Potassium 4.1 mmol/L (3.5-5.1)
[2024-06-11 13:43] LABS: Troponin I High Sensitivity 33.7 pg/ml (0-20)
[2024-06-11 13:50] LABS: Basophils # (auto) 0.03 K/uL (0.00-0.20); Basophils % (auto) 0.8 %; Eosinophils # (auto) 0.09 K/uL (0.00-0.50); Eosinophils % (auto) 2.5 %; Immature Granulocytes # (auto) 0.01 K/uL (0.01-0.20); Immature Granulocytes % (auto) 0.3 %; Lymphocytes # (auto) 0.57 K/uL (1.20-3.40); Lymphocytes % (auto) 15.7 %; Macrocytosis Present; Monocytes # (auto) 0.49 K/uL (0.11-0.59); Monocytes % (auto) 13.5 %; Neutrophils # (auto) 2.45 K/uL (1.40-6.50); Neutrophils % (auto) 67.2 %; Polychromasia 1+; Tear Drop Cells 1+
[2024-06-11 13:52] LABS: Influenza A virus by PCR Negative (Neg); Influenza B virus by PCR Negative (Neg); RSV by PCR Negative (Neg); SARS CoV2 RNA(COVID-19) Ceph NEGATIVE (Negative)
[2024-06-11 13:58] LABS: Partial Thromboplastin Ratio 0.9; Partial Thromboplastin Time 25 Seconds (21-31)
[2024-06-11] MEDS: dilTIAZem HCl 5 MG/ML 5 ML VIAL IV STA (13:58)
[2024-06-11] MEDS: METOPROLOL TARTRATE 50 MG TAB PO STA (14:01)
--- NOTE | 2024-06-11 14:09 | XRay Report ---
XR chest 1V portable CLINICAL HISTORY: Chest pain, nonspecific COMPARISON STUDY: Chest radiograph January 09, 2024. FINDINGS: There are median sternotomy wires and mediastinal surgical clips. Moderate cardiomegaly is again noted. There is no pneumothorax or pleural effusion. No consolidation is present. Pulmonary vas cular congestion is similar to prior exam. No evidence for overt pulmonary edema. IMPRESSION: No significant change in appearance of the chest. Cardiomegaly with pulmonary vascular c ongestion. ACT 112: Negative or not required by law. Electronically signed by: Tomy Campos M.D. 06/11/2024 2:07 PM
--- NOTE | 2024-06-11 14:16 | Electrocardiogram Report ---
Test Reason : Blood Pressure : */* mmHG Vent. Rate : 128 BPM Atrial Rate : * BPM P-R Int : * ms QRS Dur : 136 ms QT Int : 356 ms P-R-T Axes : * -42 141 degrees QTcB Int : 519 ms Supraventricular tachycardia Left axis deviation Non-specific intra-ventricular conduction block Left ventricular hypertrophy with repolarization abnormality Old Anterior infarct Abnormal ECG When compared with ECG of 22-Jun-2023 18:36, Vent. rate has increased by 66 bpm Confirmed by Puma Allen ([id number]) on 06/11/2024 2:15:59 PM Referred By: Confirmed By: Puma Allen
[2024-06-11] MEDS: MAGNESIUM SULFATE / D5W 1 GM/100 ML BAG IV SCH (15:31)
--- NOTE | 2024-06-11 15:58 | History & Physical Report ---
Date of Service June 11, 2024 Assessment & Plan (1) Anemia of chronic renal failure, stage 3 (moderate): Plan: #Symptomatic Anemia #Anemia 2/2 CKD3a and iron Longstanding history of anemia - likely due to iron deficiency and anemia of chronic disease with CKD IIIa. GI workup without obvious cause. Follows with hematology. Patient has had multiple blood transfusions - most recently at the end of May (2 units). Patient with SOB and tachycardia prompting ED eval. Ordered 1 unit in the ED for hemoglobin of 7.8. CKD3a - follows with nephrology. On EPO therapy, due for Aranesp today. Baseline 1.8, stable renal function at present. Nephrology consult - appreciate recs iron profile ordered - could consider Venofer while inpatient 1 unit PRBCs transfusing, 20:00 CBC, 1 unit on hold transfusion threshold < 9 nephrology consult, appreciate recs consider inpatient administration of Aranesp, defer to nephrology AM CBC (2) Tachycardia: Plan: Did receive rate control medications in the ED for a fib/flutter. Metoprolol 5 mg IV along with his home dose of metoprolol. Elevated rate likely compensatory for anemia. Improving with transfusion. If does not normalize with correction of anemia could consider further rate control and cardiology consult. Did order an ECHO for completeness. monitor on tele f/u ECHO consider cards consults (3) Diabetic ulcer of left foot: Plan: Currently being treated with ampicillin and Bactrim. Continue therapy while inpatient with formulary substitutions. abx x 14 days, end 06/17 wound nurse consulted (4) Diabetes mellitus, type 2: Plan: Patient on insulin outpatient. They monitor average BSG with fructosamine - he is at goal. Basal 35 units SQ nightly with bolus meal coverage. Decrease basal to 20 units nightly with SSI, goal BSG 120-160 per outpatient recommendations. (5) CAD, multiple vessel: Plan: Patient with significant cardiac history. CABG x 5. PAD with several stent placements. On metoprolol, clopidogrel, statin therapy. 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 Last ECHO 03/2023. Repeat as above. No signs of fluid overload at present. Continue Imdur, losartan, Bumex, metoprolol, nitro PRN, statin therapy, and Plavix. (6) Elevated troponin: Plan: Likely demand ischemia. Trend to peak (7) Symptomatic anemia: Plan: See above Plan NOEMY - CPAP while inpatient Depression - continue sertraline Continue supplements/vitamins Code status: DNR/DNI DVT ppx: SCDs, on Plavix FENGI: Heart healthy, carb consistent Dispo: PCU/Tele History of Present Illness Chief Complaint: SOB tachycardia Primary Care Provider: Bartolo Jackson MD 69 y/o with a PMHx of CAD s/p CABG x 5 in 2008, PAD with multiple prior stent placements, IDDM, CKDIII, HLD, NOEMY on CPAP, and anemia here for shortness of breath and heart palpitations. Patient presents with about a week of shortness of breath and heart palpitations. He can feel his heart racing and states that he can see it pounding in his chest. No discrete chest pain. No fevers or chills. No blood in the urine or stool. No difficulty with urination. No nausea or vomiting. Has a foot wound that he is on Bactrim and Ampicillin for - end date 06/17. Does take doxycycline 100 mg daily as well. Patient with CKD III follows with Dr. Silva. Anemia presumed in the setting of iron deficiency and CKDIII. Patient does also follow with hematology. He is on EPO therapy along with vitamin supplementation and occasional iron infusions. Was to have his next EPO shot today. Had GI workup as well without obvious bleeding. Does have dark stools and prior heme positive stools, but he is on iron therapy. Not presumed to be due to GI causes. He did not take his home meds this morning. Allergies Allergy/AdvReac Type Severity Reaction Status Date / Time animal dander Allergy Intermediate Hives Verified 06/06/24 14:58 bacitracin Allergy Intermediate RASH Verified 06/06/24 14:58 iodine Allergy Intermediate RASH-AVOIDS Verified 06/06/24 14:58 SHELLFISH latex Allergy Intermediate contact Verified 06/06/24 14:58 dermatitis neomycin Allergy Intermediate RASH Verified 06/06/24 14:58 polymyxin B Allergy Intermediate RASH Verified 06/06/24 14:58 gabapentin Allergy Unknown PER RECORDS Verified 06/06/24 14:58 pregabalin Allergy Unknown PER RECORDS Verified 06/06/24 14:58 adhesive AdvReac Mild ALMOST ALL Verified 06/06/24 14:58 GAUZE BANDAGES GIVE HIM A POISON TRISTAN LIKE RASH prednisone AdvReac Mild IRRITABLE Verified 06/06/24 14:58 Home Medications Medication Instructions Recorded Confirmed Type biotin 1 mg capsule 1 mg PO QDL 12/12/18 06/11/24 History chromium picolinate 1,000 mcg 1,000 mcg PO QDL 12/12/18 06/11/24 History tablet docusate sodium 100 mg capsule 100 mg PO BID PRN Constipation 12/12/18 06/11/24 History (Colace) multivitamin 1 tab PO QDL 12/12/18 06/11/24 History vitamins A,C,R-mhje-qejknb 4,296 1 cap PO BID 12/12/18 06/11/24 History mcg-226 mg-90 mg capsule (PreserVision AREDS) nitroglycerin 0.4 mg sublingual 0.4 mg sublingual USEASDIRECTD PRN 02/11/19 06/11/24 History tablet chest pain famotidine 20 mg tablet 20 mg PO BID #180 tabs 08/29/19 06/11/24 Rx acetaminophen 650 mg 650 mg PO TID 01/28/20 06/11/24 History tablet,extended release (Tylenol Arthritis Pain) lancets 33 gauge (OneTouch Delica #400 ea 02/12/21 06/05/24 Rx Lancets) OneTouch Ultra Test (blood sugar #500 ea 04/23/21 06/05/24 Rx diagnostic) cholecalciferol (vitamin D3) 125 125 mcg PO TID 09/27/21 06/11/24 History mcg (5,000 unit) tablet (Vitamin D3) magnesium oxide 500 mg PO TID 09/27/21 06/11/24 History clindamycin phosphate 1 % lotion 1 applic topical DAILY #60 mL 02/17/22 06/11/24 Rx omega-3 fatty acids 1,000 mg 1,000 mg PO QDL 05/16/22 06/11/24 History capsule lidocaine 4 % topical patch 1 patch topical DAILY PRN pain #10 07/26/22 06/11/24 Rx (Aspercreme (lidocaine)) ea zinc acetate 50 mg (zinc) capsule 50 mg PO DAILY 01/10/23 06/11/24 History fluocinonide 0.05 % topical cream 1 applic topical BID #60 grams 01/26/23 06/11/24 Rx azelastine 137 mcg (0.1 %) nasal 1 - 2 spray intranasal HS #30 mL 04/28/23 06/11/24 Rx spray blood sugar diagnostic 06/07/23 06/05/24 History pen needle, diabetic 32 gauge x 06/07/23 06/05/24 History " (BD Ultra-Fine Eli Pen Needle) darbepoetin francisco in polysorbat 200 200 mcg subcut UD 07/05/23 06/11/24 History mcg/mL in polysorbate injection (Aranesp) insulin glargine 100 unit/mL (3 35 unit (0.35 mL) subcut HS #30 mL 09/04/23 06/11/24 Rx mL) subcutaneous pen (Lantus Solostar U-100 Insulin) losartan 50 mg tablet 50 mg PO QAM #90 tabs 10/05/23 06/11/24 Rx atorvastatin 80 mg tablet 80 mg PO QPM #90 tabs 12/06/23 06/11/24 Rx doxycycline hyclate 100 mg tablet 100 mg PO DAILY #30 tabs 01/30/24 06/11/24 Rx sodium ferric gluconate complex in 250 mg IV DAILY 2 doses 02/07/24 06/11/24 Rx sucrose 62.5 mg/5 mL intravenous (Ferrlecit) tramadol 50 mg tablet 50 mg PO TID PRN pain #90 tabs 02/26/24 06/11/24 Rx bumetanide 2 mg tablet 4 mg (2 x 2 mg) PO BID #360 tabs 02/27/24 06/11/24 Rx clopidogrel 75 mg tablet 75 mg PO QDL #90 tabs 03/06/24 06/11/24 Rx isosorbide mononitrate 60 mg 60 mg PO QAM #90 tabs 03/06/24 06/11/24 Rx tablet,extended release 24 hr sertraline 100 mg tablet 200 mg (2 x 100 mg) PO DAILY #180 04/03/24 06/11/24 Rx tabs insulin aspart U-100 100 unit/mL 35 unit (0.35 mL) subcut TIDM #45 04/19/24 06/11/24 Rx (3 mL) subcutaneous pen (Novolog mL FlexPen U-100 Insulin aspart) ferrous sulfate 325 mg (65 mg 325 mg PO BID #180 tabs 04/29/24 06/11/24 Rx iron) tablet,delayed release ampicillin 500 mg capsule 500 mg PO TID 14 days #42 caps 06/04/24 06/11/24 Rx sulfamethoxazole 400 1 tab PO BID 14 days #28 tabs 06/04/24 06/11/24 Rx mg-trimethoprim 80 mg tablet (Bactrim) metoprolol tartrate 50 mg tablet 50 mg PO BID #180 tabs 06/07/24 06/11/24 Rx spironolactone 25 mg tablet 12.5 mg PO DAILY 06/11/24 06/11/24 History vitamin B complex and vitamin C 1 cap PO DAILY 06/11/24 06/11/24 History no.20-folic acid 1 mg capsule (Triphrocaps) Past Med/Surg History Problem List Elevated troponin Symptomatic anemia Anemia of chronic renal failure, stage 3 (moderate) Tachycardia (Acute) Diabetic ulcer of left foot (Acute) Open wound of left foot Numbness and tingling in right hand Diabetic peripheral neuropathy associated with type 2 diabetes mellitus Diabetic foot ulcer associated with type 2 diabetes mellitus Pulmonary hypertension Fecal occult blood test positive Cardiomyopathy S/P laparoscopic appendectomy Nocturnal hypoxemia Diabetes mellitus, type 2 PAD (peripheral artery disease) (Chronic) s/p multiple vascular interventions: left posterior tibilial artery stent, atherectomy and VIDEOGAME TESTER of a total occlusion of the left tibial-peroneal trunk artery, atherectomy and VIDEOGAME TESTER of 78% stenosis left superficial femoral artery/follows with [facility]/Dr. Billings Antiplatelet or antithrombotic long-term use CKD (chronic kidney disease), stage III baseline creatinine 1.3-2.0 per nephrology, follows with [facility]/Dr. Silva Anemia CAD, multiple vessel CHF (congestive heart failure), NYHA class II Complex sleep apnea syndrome Depression Dyslipidemia Esophageal reflux Generalized osteoarthritis of multiple sites Hypertension Nonproliferative diabetic retinopathy of both eyes Obese Obstructive sleep apnea Presence of arterial stent Proteinuria Fibromyalgia Hx of CABG CABG x5 (2008) at [facility] in [facility] *Dr. Solis follows Medical History Sleep apnea Cervical radicular pain Atrophic gastritis B12 deficiency Chronic venous insufficiency Balance problems Fatigue Vitamin D deficiency Pulmonary HTN Carpal tunnel syndrome of right wrist Hx-TIA (transient ischemic attack) ~2022- residual memory loss Hx of myocardial infarction 2009- follows w/ Dr Solis PAD (peripheral artery disease) s/p multiple vascular interventions: left posterior tibilial artery stent, atherectomy and VIDEOGAME TESTER of a total occlusion of the left tibial-peroneal trunk artery, atherectomy and VIDEOGAME TESTER of 78% stenosis left superficial femoral artery/follows with [facility]/Dr. Billings History of DVT (deep vein thrombosis) 2019 > due to "poor veins" Impingement syndrome of right shoulder Dysfunction of right rotator cuff Scoliosis Spinal stenosis Pseudoaneurysm both femoral arteries, follows with [facility]/Dr. Billings- per cardiology records, the pseudoaneurysm was "treated with prolonged manual pressure" Allergic rhinitis Allergy history, latex Surgical History History of right cataract extraction Hx of left cataract extraction History of bone marrow biopsy (10/2023) Hx of CABG CABG x5 (2008) at [facility] *Dr. Solis follows H/O toe surgery right, 5 toe and metatarsal removed History of esophagogastroduodenoscopy (EGD) multiple; pt was to have 03/19/14 but was found to have full stomach and case aborted(no isses with MAC) History of colonoscopy multiple History of appendectomy H/O vascular surgery s/p multiple vascular interventions: left posterior tibilial artery stent, atherectomy and VIDEOGAME TESTER of a total occlusion of the left tibial-peroneal trunk artery, atherectomy and VIDEOGAME TESTER of 78% stenosis left superficial femoral artery; per pt "lots of stents all below the abdomen'; followed by Dr. Billings H/O excision of mass (09/28/21) Excision of abscess mid back. Dr. Mcintosh S/P arthroscopy of right shoulder December 12, 2019 Hx of lymph node excision 1994> left neck History of tooth extraction wisdom teeth S/P cardiac catheterization 2016: "severely diseased left main, total proximal LAD, total proximal left circumflex, total proximal RCA stenoses. SVG to left circumflex marginal patent. SVG to diagonal patent. ATWOOD to LAD patent. SVG to RCA occluded. Medical therapy recommended." per 09/24/19 cardiology note S/P tonsillectomy and adenoidectomy Status post incision and drainage on back> abcess > multiple Family History Brother Coronary heart disease Family/Other Diabetes Heart disease Myocardial infarction Stroke Other No family history of adverse response to anesthesia Denies family history of Ovarian cancer Prostate cancer Breast cancer Lung cancer Colorectal cancer Social History Smoking Status: Never smoker Tobacco Type: Cigarettes Second Hand Exposure: No; Do You Dip or Chew Tobacco: No; Hx Alcohol Use: No Hx Substance Use: No Preferred Language: Moroccan Communication Ability: Effective Visual Impairment: Partially Limited Hearing Ability: Normal Needle Punch Operator Required: No Beliefs That Will Affect Care: None marital status: Single Current Living Situation: Alone Current Living Situation Comment: [facility] [address] current occupational status: retired Feels Safe at Home: Yes Childhood Exposure to Second-Hand Smoke: Yes Diet: regular caffeine: Yes Dental Care, Regularly: Yes Physical Activity Frequency: Does not Exercise Seatbelt Use: always Sunscreen Use: No Gender Identity: Male Assistive Devices: Walker Review of Systems 2 Review of Systems: See HPI Physical Exam 2 Physical Exam: Gen: chronically appearing patient in NAD HEENT: AT NC MMM pale skin Resp: CTAB no wheezing no increased work of breathing CV: tachycardic, regular rhythm, no m/r/g, clinically well perfused Abd: soft, non-tender, non-distended MSK: no obvious deformities Skin: no rashes or bruising Neuro: alert and oriented Psych: appropriate mood and affect Results & Data Results & Data Vital Signs (Past 12 Hours) Vital Signs Temp Pulse Pulse Resp BP BP Pulse Ox 06/11/24 15:00 106 H 18 156/102 H 98 06/11/24 13:50 124 H 139/93 06/11/24 13:20 116 H 14 99 06/11/24 13:20 116 H 15 125/77 99 06/11/24 13:20 98 06/11/24 13:15 116 H 119/84 06/11/24 13:06 129 H 06/11/24 12:40 36.7 C 120 H 18 143/83 H 96 O2 Del Method 06/11/24 15:00 Room Air 06/11/24 13:50 06/11/24 13:20 Room Air 06/11/24 13:20 Room Air 06/11/24 13:20 Room Air 06/11/24 13:15 06/11/24 13:06 06/11/24 12:40 Room Air Laboratory Results 06/11/24 12:47 06/11/24 12:47 Diagnostic Findings Chest X-Ray 06/11/24 12:44 FINDINGS: There are median sternotomy wires and mediastinal surgical clips. Moderate cardiomegaly is again noted. There is no pneumothorax or pleural effusion. No consolidation is present. Pulmonary vascular congestion is similar to prior exam. No evidence for overt pulmonary edema. IMPRESSION: No significant change in appearance of the chest. Cardiomegaly with pulmonary vascular congestion. Code Status & VTE Plan VTE Prophylaxis Plan VTE Prophylaxis will be ordered: Yes Supervising Physician Co-Signing Physician Notes Attending attestation Pt seen and examined in concert with Dr. Johns. In agreement with the documented findings as noted in the resident documentation with any exceptions or additions as noted here. Resting comfortably in bed, tolerating transfusion. Does have some worsening bilateral lower extremity paresthesias which he normally medicates with tramadol, which he reports not having taken recently. On examination, S1/S2 nl RRR no MCG. CTAB. Abd NT/ND BS+ve. 2+ pitting edema to the knee Symptomatic anemia in the setting of CKDIIIa, anemia of chronic disease w/ multiple transfusion hx - s/p 1 UPRBC, likely for unit 2 but will check post transfusion H/H as noted. Trend CBC. [place]. Nephrology consult. Diabetic ulcer, left foot, POA - continue amp, TMP/SMX Else see resident documentation as noted. Resident Activity Tracking Resident Involvement: Resident Care Provided Care Provided: Adult Hospital Medicine (1) Anemia of chronic renal failure, stage 3 (moderate) Chronic kidney disease stage 3 subtype: stage 3a (GFR 45-59) Qualified Code(s): N18.31 - Chronic kidney disease, stage 3a; D63.1 - Anemia in chronic kidney disease (3) Diabetic ulcer of left foot Diabetes mellitus type: type 2 Diabetic foot ulcer location: midfoot Non- pressure ulcer stage: with fat layer exposed Qualified Code(s): E11.621 - Type 2 diabetes mellitus with foot ulcer; L97.422 - Non-pressure chronic ulcer of left heel and midfoot with fat layer exposed (4) Diabetes mellitus, type 2 Chronic kidney disease stage: stage 3 (moderate) Chronic kidney disease stage 3 subtype: stage 3a (GFR 45-59) Diabetes mellitus complication detail: with chronic kidney disease Diabetes mellitus complication status: with kidney complications 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
[2024-06-11] MEDS: BUMETANIDE 1 MG TAB PO ONE (16:01)
[2024-06-11] MEDS: AMOXICILLIN 500 MG CAP PO STA (16:01)
[2024-06-11] MEDS: CLOPIDOGREL BISULFATE 75 MG TAB PO ONE (16:02)
[2024-06-11] MEDS: FAMOTIDINE 20 MG TAB PO ONE (16:02)
[2024-06-11] MEDS: SPIRONOLACTONE 12.5 MG TAB PO ONE (16:31)
[2024-06-11] MEDS: SERTRALINE HCL 100 MG TABLET PO ONE (16:31)
[2024-06-11] MEDS ORDERED: GLUCOSE 10 TAB/TUBE PO PRN (17:56)
[2024-06-11] MEDS ORDERED: NITROGLYCERIN SL 0.4 MG/TAB TAB SL PRN (17:56)
[2024-06-11] MEDS ORDERED: ALUMINUM/MAGNESIUM SUSP 30 ML UDC PO PRN (17:56)
[2024-06-11] MEDS ORDERED: GLUCOSE 40% GEL 15 GM TUBE PO PRN (17:56)
[2024-06-11] MEDS ORDERED: GLUCAGON FOR INJ 1 MG VIAL SQ PRN (17:56)
[2024-06-11] MEDS ORDERED: POLYETHYLENE (MIRALAX) 17 GM PACK PO PRN (17:56)
[2024-06-11] MEDS ORDERED: CARBOHYDRATES FOR HYPOGLYCEMIA PO PRN (17:56)
[2024-06-11] MEDS ORDERED: DEXTROSE 50% 50 ML SYRINGE IV PRN (17:56)
--- NOTE | 2024-06-11 18:28 | Emergency Department Note ---
History of Present Illness General Chief Complaint: Chest Pain Stated Complaint: TACHYCARDIA/130BPM, CHEST PAIN Time Seen by Provider: 06/11/24 12:58 History of Present Illness Provider Complaint: chest pain Onset (ago): week(s) Onset (Weeks): 1 Duration: progressively worsening Onset: during rest Pain Location: substernal Pain Radiation: none Severity: moderate Quality: + dull Relieved By: + nothing Exacerbated By: + nothing Context: no recent illness, no recent surgery, no recent travel, no trauma/injury or no history of DVT/PE Associated symptoms: + palpitations and + other (Fatigue. Patient reports that he recently needed a blood transfusion of 2 unit packed red blood cells but still states he feels fatigued and feels like he needs more blood.); no nausea, no vomiting, no dyspnea, no syncope, no fever or no cough Patient denies any melena hematochezia or hematuria. No nausea or vomiting. Home Medications Medication Instructions Recorded Confirmed Type biotin 1 mg capsule 1 mg PO QDL 12/12/18 06/11/24 History chromium picolinate 1,000 mcg 1,000 mcg PO QDL 12/12/18 06/11/24 History tablet docusate sodium 100 mg capsule 100 mg PO BID PRN Constipation 12/12/18 06/11/24 History (Colace) multivitamin 1 tab PO QDL 12/12/18 06/11/24 History vitamins A,C,D-cyxd-qqauok 4,296 1 cap PO BID 12/12/18 06/11/24 History mcg-226 mg-90 mg capsule (PreserVision AREDS) nitroglycerin 0.4 mg sublingual 0.4 mg sublingual USEASDIRECTD PRN 02/11/19 06/11/24 History tablet chest pain famotidine 20 mg tablet 20 mg PO BID #180 tabs 08/29/19 06/11/24 Rx acetaminophen 650 mg 650 mg PO TID 01/28/20 06/11/24 History tablet,extended release (Tylenol Arthritis Pain) lancets 33 gauge (OneTouch Delica #400 ea 02/12/21 06/05/24 Rx Lancets) OneTouch Ultra Test (blood sugar #500 ea 04/23/21 06/05/24 Rx diagnostic) cholecalciferol (vitamin D3) 125 125 mcg PO TID 09/27/21 06/11/24 History mcg (5,000 unit) tablet (Vitamin D3) magnesium oxide 500 mg PO TID 09/27/21 06/11/24 History clindamycin phosphate 1 % lotion 1 applic topical DAILY #60 mL 02/17/22 06/11/24 Rx omega-3 fatty acids 1,000 mg 1,000 mg PO QDL 05/16/22 06/11/24 History capsule lidocaine 4 % topical patch 1 patch topical DAILY PRN pain #10 07/26/22 06/11/24 Rx (Aspercreme (lidocaine)) ea zinc acetate 50 mg (zinc) capsule 50 mg PO DAILY 01/10/23 06/11/24 History fluocinonide 0.05 % topical cream 1 applic topical BID #60 grams 01/26/23 06/11/24 Rx azelastine 137 mcg (0.1 %) nasal 1 - 2 spray intranasal HS #30 mL 04/28/23 06/11/24 Rx spray blood sugar diagnostic 06/07/23 06/05/24 History pen needle, diabetic 32 gauge x 06/07/23 06/05/24 History 5/32" (BD Ultra-Fine Eli Pen Needle) darbepoetin francisco in polysorbat 200 200 mcg subcut UD 07/05/23 06/11/24 History mcg/mL in polysorbate injection (Aranesp) insulin glargine 100 unit/mL (3 35 unit (0.35 mL) subcut HS #30 mL 09/04/23 06/11/24 Rx mL) subcutaneous pen (Lantus Solostar U-100 Insulin) losartan 50 mg tablet 50 mg PO QAM #90 tabs 10/05/23 06/11/24 Rx atorvastatin 80 mg tablet 80 mg PO QPM #90 tabs 12/06/23 06/11/24 Rx doxycycline hyclate 100 mg tablet 100 mg PO DAILY #30 tabs 01/30/24 06/11/24 Rx sodium ferric gluconate complex in 250 mg IV DAILY 2 doses 02/07/24 06/11/24 Rx sucrose 62.5 mg/5 mL intravenous (Ferrlecit) tramadol 50 mg tablet 50 mg PO TID PRN pain #90 tabs 02/26/24 06/11/24 Rx bumetanide 2 mg tablet 4 mg (2 x 2 mg) PO BID #360 tabs 02/27/24 06/11/24 Rx clopidogrel 75 mg tablet 75 mg PO QDL #90 tabs 03/06/24 06/11/24 Rx isosorbide mononitrate 60 mg 60 mg PO QAM #90 tabs 03/06/24 06/11/24 Rx tablet,extended release 24 hr sertraline 100 mg tablet 200 mg (2 x 100 mg) PO DAILY #180 04/03/24 06/11/24 Rx tabs insulin aspart U-100 100 unit/mL 35 unit (0.35 mL) subcut TIDM #45 04/19/24 06/11/24 Rx (3 mL) subcutaneous pen (Novolog mL FlexPen U-100 Insulin aspart) ferrous sulfate 325 mg (65 mg 325 mg PO BID #180 tabs 04/29/24 06/11/24 Rx iron) tablet,delayed release ampicillin 500 mg capsule 500 mg PO TID 14 days #42 caps 06/04/24 06/11/24 Rx sulfamethoxazole 400 1 tab PO BID 14 days #28 tabs 06/04/24 06/11/24 Rx mg-trimethoprim 80 mg tablet (Bactrim) metoprolol tartrate 50 mg tablet 50 mg PO BID #180 tabs 06/07/24 06/11/24 Rx spironolactone 25 mg tablet 12.5 mg PO DAILY 06/11/24 06/11/24 History vitamin B complex and vitamin C 1 cap PO DAILY 06/11/24 06/11/24 History no.20-folic acid 1 mg capsule (Triphrocaps) Allergies Allergy/AdvReac Type Severity Reaction Status Date / Time animal dander Allergy Intermediate Hives Verified 06/06/24 14:58 bacitracin Allergy Intermediate RASH Verified 06/06/24 14:58 iodine Allergy Intermediate RASH-AVOIDS Verified 06/06/24 14:58 SHELLFISH latex Allergy Intermediate contact Verified 06/06/24 14:58 dermatitis neomycin Allergy Intermediate RASH Verified 06/06/24 14:58 polymyxin B Allergy Intermediate RASH Verified 06/06/24 14:58 gabapentin Allergy Unknown PER RECORDS Verified 06/06/24 14:58 pregabalin Allergy Unknown PER RECORDS Verified 06/06/24 14:58 adhesive AdvReac Mild ALMOST ALL Verified 06/06/24 14:58 GAUZE BANDAGES GIVE HIM A POISON TRISTAN LIKE RASH prednisone AdvReac Mild IRRITABLE Verified 06/06/24 14:58 Past Med/Surg History Problem List Atrial flutter (Acute) Chest pain (Acute) Anemia (Acute) Elevated troponin Symptomatic anemia Anemia of chronic renal failure, stage 3 (moderate) Tachycardia (Acute) Diabetic ulcer of left foot (Acute) Open wound of left foot Numbness and tingling in right hand Diabetic peripheral neuropathy associated with type 2 diabetes mellitus Diabetic foot ulcer associated with type 2 diabetes mellitus Pulmonary hypertension Fecal occult blood test positive Cardiomyopathy S/P laparoscopic appendectomy Nocturnal hypoxemia Diabetes mellitus, type 2 PAD (peripheral artery disease) (Chronic) s/p multiple vascular interventions: left posterior tibilial artery stent, atherectomy and [employer]STRUCTION [employer] of a total occlusion of the left tibial-peroneal trunk artery, atherectomy and [employer]STRUCTION [employer]ER of 78% stenosis left superficial femoral artery/follows with [facility]/Dr. Billings Antiplatelet or antithrombotic long-term use CKD (chronic kidney disease), stage III baseline creatinine 1.3-2.0 per nephrology, follows with [facility]/Dr. Silva Anemia CAD, multiple vessel CHF (congestive heart failure), NYHA class II Complex sleep apnea syndrome Depression Dyslipidemia Esophageal reflux Generalized osteoarthritis of multiple sites Hypertension Nonproliferative diabetic retinopathy of both eyes Obese Obstructive sleep apnea Presence of arterial stent Proteinuria Fibromyalgia Hx of CABG CABG x5 (2008) at [facility] *Dr. Solis follows Medical History Sleep apnea Cervical radicular pain Atrophic gastritis B12 deficiency Chronic venous insufficiency Balance problems Fatigue Vitamin D deficiency Pulmonary HTN Carpal tunnel syndrome of right wrist Hx-TIA (transient ischemic attack) ~2021- residual memory loss Hx of myocardial infarction 2008- follows w/ Dr Solis PAD (peripheral artery disease) s/p multiple vascular interventions: left posterior tibilial artery stent, atherectomy and [employer]STRUCTION [employer]AD[employer] TE[employer]ER of a total occlusion of the left tibial-peroneal trunk artery, atherectomy and CONSTRUCTION TR[employer]ES TE[employer]ER of 78% stenosis left superficial femoral artery/follows with [facility]/Dr. Billings History of DVT (deep vein thrombosis) 2019 > due to "poor veins" Impingement syndrome of right shoulder Dysfunction of right rotator cuff Scoliosis Spinal stenosis Pseudoaneurysm both femoral arteries, follows with [facility]/Dr. Billings- per cardiology records, the pseudoaneurysm was "treated with prolonged manual pressure" Allergic rhinitis Allergy history, latex Surgical History History of right cataract extraction Hx of left cataract extraction History of bone marrow biopsy (10/2023) Hx of CABG CABG x5 (2008) at [facility] *Dr. Solis follows H/O toe surgery right, 5 toe and metatarsal removed History of esophagogastroduodenoscopy (EGD) multiple; pt was to have 03/19/14 but was found to have full stomach and case aborted(no isses with MAC) History of colonoscopy multiple History of appendectomy H/O vascular surgery s/p multiple vascular interventions: left posterior tibilial artery stent, atherectomy and [employer]STRU[employer]ER of a total occlusion of the left tibial-peroneal trunk artery, atherectomy and CONSTRUCTION TR[employer]ES TE[employer]ER of 78% stenosis left superficial femoral artery; per pt "lots of stents all below the abdomen'; followed by Dr. Billings H/O excision of mass (09/28/21) Excision of abscess mid back. Dr. Mcintosh S/P arthroscopy of right shoulder December 12, 2019 Hx of lymph node excision 1994> left neck History of tooth extraction wisdom teeth S/P cardiac catheterization 2016: "severely diseased left main, total proximal LAD, total proximal left circumflex, total proximal RCA stenoses. SVG to left circumflex marginal patent. SVG to diagonal patent. ATWOOD to LAD patent. SVG to RCA occluded. Medical therapy recommended." per 09/24/19 cardiology note S/P tonsillectomy and adenoidectomy Status post incision and drainage on back> abcess > multiple Family History Brother Coronary heart disease Family/Other Diabetes Heart disease Myocardial infarction Stroke Other No family history of adverse response to anesthesia Denies family history of Ovarian cancer Prostate cancer Breast cancer Lung cancer Colorectal cancer Social History Smoking Status: Former smoker Tobacco Type: Cigarettes Second Hand Exposure: No; Do You Dip or Chew Tobacco: No; Hx Alcohol Use: Yes Hx Substance Use: No Preferred Language: Tunisian Communication Ability: Effective Visual Impairment: Partially Limited Hearing Ability: Normal Retail 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 Associate Required: No Beliefs That Will Affect Care: None marital status: Single Current Living Situation: Alone Current Living Situation Comment: [address] current occupational status: retired Feels Safe at Home: Yes Childhood Exposure to Second-Hand Smoke: Yes Diet: regular caffeine: Yes Dental Care, Regularly: Yes Physical Activity Frequency: Does not Exercise Seatbelt Use: always Sunscreen Use: No Gender Identity: Male Assistive Devices: Glasses and Walker Physical Exam Vital Signs Vital Signs - 24 hr 06/11/24 12:40 06/11/24 13:06 06/11/24 13:15 Temperature 36.7 C Temperature Source Temporal Artery Scan Pulse Rate 120 H 129 H 116 H Pulse Rate [Apical] Pulse Rhythm Regular Pulse Strength Normal Respiratory Rate 18 Respiratory Effort / Characteristics Non-Labored Spontaneous Respiratory Depth Normal Respiratory Pattern Blood Pressure 143/83 H 119/84 Blood Pressure [Right Arm] Blood Pressure Mean 103 Blood Pressure Mean [Right Arm] Blood Pressure Position Sitting Pulse Oximetry 96 Oxygen Delivery Method Room Air Sepsis Recent Fever Within 48 Hours No Sepsis New/Unexplained Change in Mental Status N/A Sepsis Action Taken by Nursing No Action Required 06/11/24 13:20 06/11/24 13:20 06/11/24 13:20 Temperature Temperature Source Pulse Rate 116 H Pulse Rate [Apical] 116 H Pulse Rhythm Pulse Strength Respiratory Rate 15 14 Respiratory Effort / Characteristics Respiratory Depth Respiratory Pattern Blood Pressure Blood Pressure [Right Arm] 125/77 Blood Pressure Mean Blood Pressure Mean [Right Arm] 93 Blood Pressure Position Pulse Oximetry 98 99 99 Oxygen Delivery Method Room Air Room Air Room Air Sepsis Recent Fever Within 48 Hours Sepsis New/Unexplained Change in Mental Status Sepsis Action Taken by Nursing 06/11/24 13:50 06/11/24 15:00 Temperature Temperature Source Pulse Rate 124 H Pulse Rate [Apical] 106 H Pulse Rhythm Pulse Strength Respiratory Rate 18 Respiratory Effort / Characteristics Non-Labored Spontaneous Respiratory Depth Normal Respiratory Pattern Regular Blood Pressure 139/93 Blood Pressure [Right Arm] 156/102 H Blood Pressure Mean Blood Pressure Mean [Right Arm] 120 Blood Pressure Position Pulse Oximetry 98 Oxygen Delivery Method Room Air Sepsis Recent Fever Within 48 Hours Sepsis New/Unexplained Change in Mental Status Sepsis Action Taken by Nursing Physical Exam GENERAL: oriented to person, place, and time. appears well-developed and well- nourished. HENT: Exam performed. - Head: Normocephalic and atraumatic. EYES: Conjunctivae and EOM are normal. Right eye exhibits no discharge. Left eye exhibits no discharge. No scleral icterus. NECK: Normal range of motion. Neck supple. No JVD present. CV: Tachycardic rate, irregular rhythm, normal heart sounds and intact distal pulses. There is no peripheral edema. Palpable radial pulses bue. PULM/CHEST: Effort normal and breath sounds normal. No respiratory distress. No stridor. no wheezes. no rales. ABD: The abdomen is soft. There is no tenderness. NEURO: Motor and sensation grossly intact. SKIN: Pale PSYCH: normal mood and affect. Behavior is normal. Judgment and thought content normal. Course Course 1258: The patient was evaluated in room A2. A complete history and physical exam was performed Cardiac monitoring: An order was placed for continuous cardiac monitoring. The monitor shows a rate of 130 with atrial flutter rhythm interpreted by me Patient appears to be in atrial flutter rhythm. Patient states he did not take his metoprolol today. Metoprolol 5 mg IV push ordered for the patient. 1320: Vital signs stable, heart rate improved status post metoprolol IV. Patient's i-STAT shows low hemoglobin. Will check labs. 1430: Patient started becoming tachycardic in atrial flutter again. Patient was given his home dose of metoprolol. Patient's hemoglobin is 7.8. Creatinine is at baseline at 2. High-sensitivity troponin elevated at 33.7. External medical records reviewed and the patient's hemoglobin on May 30 was 7.9 at which point he was transfused 2 units packed red blood cells which improved his hemoglobin to 9.1. It is thought that the patient's atrial flutter is secondary to his low hemoglobin as well as him not taking metoprolol today. Patient will be admitted to the hospitalist team and transfuse 1 unit packed red blood cells. Administered Medications Magnesium Sulfate/Dextrose (Magnesium Sulfate / D5w) 1 gm in 100 mls @ 50 mls/hr IV Q2H [facility] Stop: 06/11/24 18:44 Last Admin: 06/11/24 18:18 Dose: 50 mls/hr Documented By: Infusion: 06/11/24 17:31 Dose: Infused Documented By: Admin: 06/11/24 15:31 Dose: 50 mls/hr Documented By: GCC Discontinued Medications Amoxicillin (Amoxicillin 500 Mg Cap) 500 mg PO NOW STA; Protocol Stop: 06/11/24 15:15 Last Admin: 06/11/24 16:01 Dose: 500 mg Documented By: TESHA Bumetanide (Bumetanide 1 Mg Tab) 4 mg PO NOW ONE Stop: 06/11/24 15:15 Last Admin: 06/11/24 16:01 Dose: 4 mg Documented By: TESHA Clopidogrel Bisulfate (Clopidogrel Bisulfate 75 Mg Tab) 75 mg PO NOW ONE Stop: 06/11/24 15:20 Last Admin: 06/11/24 16:02 Dose: 75 mg Documented By: TESHA Diltiazem HCl (Diltiazem Hcl 5 Mg/Ml 5 Ml Vial) 20 mg IV NOW STA Stop: 06/11/24 13:16 Last Admin: 06/11/24 13:58 Dose: Not Given Documented By: TESHA Famotidine (Famotidine 20 Mg Tab) 20 mg PO NOW ONE Stop: 06/11/24 15:20 Last Admin: 06/11/24 16:02 Dose: 20 mg Documented By: TESHA Metoprolol Tartrate (Metoprolol Tartrate 1 Mg/Ml Vial) 5 mg IV NOW STA Stop: 06/11/24 13:07 Last Admin: 06/11/24 13:15 Dose: 5 mg Documented By: LILIANE Metoprolol Tartrate (Metoprolol Tartrate 50 Mg Tab) 50 mg PO NOW STA Stop: 06/11/24 13:47 Last Admin: 06/11/24 14:01 Dose: 50 mg Documented By: TESHA Sertraline HCl (Sertraline Hcl 100 Mg Tablet) 200 mg PO NOW ONE Stop: 06/11/24 15:20 Last Admin: 06/11/24 16:31 Dose: 200 mg Documented By: TESHA Spironolactone (Spironolactone 12.5 Mg Tab) 12.5 mg PO NOW ONE Stop: 06/11/24 15:20 Last Admin: 06/11/24 16:31 Dose: 12.5 mg Documented By: TESHA Medical Decision Making Medical Records Attestation: I reviewed the patient's medical records. Medical records narrative: External medical records reviewed and the patient's hemoglobin on May 30 was 7.9 at which point he was transfused 2 units packed red blood cells which improved his hemoglobin to 9.1. Patient had an EGD and colonoscopy performed on May 28, [address] Barger. EGD showed inflammation of the gastric antrum. Biopsy from this area showed a mild chronic gastritis. Negative for H. pylori. Colonoscopy showed a 3 mm polyp in the cecum that was removed by cold snare and pathology showed tubular adenoma Laboratory Data Attestation: I reviewed the patient's lab results. 06/11/24 12:47 06/11/24 12:47 Labs: Lab Results 06/11/24 06/11/24 06/11/24 Range/Units 12:40 12:47 13:18 WBC 3.64 L (4.8-10.8) K/ul RBC 2.50 L (4.70-6.10) M/uL Hgb 7.8 L (14.0-18.0) g/dl POC Hgb 7.5 L (14.0-18.0) g/dl Hct 25.3 L (42.0-52.0) % POC Hct 22 L (42-52) % MCV 101.2 H (80.0-100.0) fL MCH 31.2 (25.0-34.0) pg MCHC 30.8 L (32.0-36.0) g/dL RDW Std Deviation 59.5 H (36.4-46.3) fL RDW Coeff of Farhad 16.0 H (11.5-14.5) % Plt Count 171 (130-400) K/uL MPV 9.9 (9.4-12.4) fL Immature Gran % (Auto) 0.3 % Neut % (Auto) 67.2 % Lymph % (Auto) 15.7 % Harris % (Auto) 13.5 % Eos % (Auto) 2.5 % Baso % (Auto) 0.8 % Neut # (Auto) 2.45 (1.40-6.50) K/uL Lymph # (Auto) 0.57 L (1.20-3.40) K/uL Harris # (Auto) 0.49 (0.11-0.59) K/uL Eos # (Auto) 0.09 (0.00-0.50) K/uL Baso # (Auto) 0.03 (0.00-0.20) K/uL Immature Gran # (Auto) 0.01 (0.01-0.20) K/uL Polychromasia 1+ Macrocytosis Present Tear Drop Cells 1+ PT 11.0 (9.0-12.0) Seconds INR 1.0 (0.9-1.1) APTT 25 (21-31) Seconds PTT Ratio 0.9 POC Sodium 139 (135-144) mmol/L Sodium 140 (136-145) mmol/L POC Potassium 3.9 (3.3-5.0) mmol/L Potassium 4.1 (3.5-5.1) mmol/L POC Chloride 105 (101-112) mmol/L Chloride 106 (98-107) mmol/L Carbon Dioxide 25 (21-32) mmol/L POC Total CO2 22 L (24-31) mmol/L Anion Gap 9 (3-11) POC Anion Gap 17.0 (16-25) mmol/L POC BUN 29 H (7-18) mg/dl BUN 31 H (6-23) mg/dl Creatinine 2.00 H (0.6-1.4) mg/dl POC Creatinine 2.2 H (0.6-1.3) mg/dl Est Cr Clr Drug Dosing 47.6 ml/min eGFR 35.46 BUN/Creatinine Ratio 15.5 (10-20) Glucose 194 H (70-99(Fasting)) mg/dl POC Glucose (other) 171 H (70-99) mg/dl Calcium 9.2 (8.6-10.3) mg/dl POC Ioniz Calcium Scout 1.17 (1.12-1.32) mmol/l Magnesium 1.7 (1.7-2.4) mg/dl Total Bilirubin 0.2 (0.2-1.0) mg/dl AST 34 (13-39) U/L ALT 31 (7-52) U/L Alkaline Phosphatase 96 (34-104) U/L Troponin I High Sens 33.7 H (0-20) pg/ml Total Protein 6.0 (6.0-8.3) gm/dl Albumin 3.7 (3.4-5.0) gm/dl Globulin 2.3 L (2.5-4.0) gm/dl Albumin/Globulin Ratio 1.6 (0.9-2) SARS-CoV-2 (PCR) NEGATIVE (Negative) Influenza Type A (PCR) Negative (Neg) Influenza Type B (PCR) Negative (Neg) RSV (RT-PCR) Negative (Neg) Blood Type Antibody Screen Crossmatch 06/11/24 Range/Units 14:04 WBC (4.8-10.8) K/ul RBC (4.70-6.10) M/uL Hgb (14.0-18.0) g/dl POC Hgb (14.0-18.0) g/dl Hct (42.0-52.0) % POC Hct (42-52) % MCV (80.0-100.0) fL MCH (25.0-34.0) pg MCHC (32.0-36.0) g/dL RDW Std Deviation (36.4-46.3) fL RDW Coeff of Farhad (11.5-14.5) % Plt Count (130-400) K/uL MPV (9.4-12.4) fL Immature Gran % (Auto) % Neut % (Auto) % Lymph % (Auto) % Harris % (Auto) % Eos % (Auto) % Baso % (Auto) % Neut # (Auto) (1.40-6.50) K/uL Lymph # (Auto) (1.20-3.40) K/uL Harris # (Auto) (0.11-0.59) K/uL Eos # (Auto) (0.00-0.50) K/uL Baso # (Auto) (0.00-0.20) K/uL Immature Gran # (Auto) (0.01-0.20) K/uL Polychromasia Macrocytosis Tear Drop Cells PT (9.0-12.0) Seconds INR (0.9-1.1) APTT (21-31) Seconds PTT Ratio POC Sodium (135-144) mmol/L Sodium (136-145) mmol/L POC Potassium (3.3-5.0) mmol/L Potassium (3.5-5.1) mmol/L POC Chloride (101-112) mmol/L Chloride (98-107) mmol/L Carbon Dioxide (21-32) mmol/L POC Total CO2 (24-31) mmol/L Anion Gap (3-11) POC Anion Gap (16-25) mmol/L POC BUN (7-18) mg/dl BUN (6-23) mg/dl Creatinine (0.6-1.4) mg/dl POC Creatinine (0.6-1.3) mg/dl Est Cr Clr Drug Dosing ml/min eGFR BUN/Creatinine Ratio (10-20) Glucose (70-99(Fasting)) mg/dl POC Glucose (other) (70-99) mg/dl Calcium (8.6-10.3) mg/dl POC Ioniz Calcium Scout (1.12-1.32) mmol/l Magnesium (1.7-2.4) mg/dl Total Bilirubin (0.2-1.0) mg/dl AST (13-39) U/L ALT (7-52) U/L Alkaline Phosphatase (34-104) U/L Troponin I High Sens (0-20) pg/ml Total Protein (6.0-8.3) gm/dl Albumin (3.4-5.0) gm/dl Globulin (2.5-4.0) gm/dl Albumin/Globulin Ratio (0.9-2) SARS-CoV-2 (PCR) (Negative) Influenza Type A (PCR) (Neg) Influenza Type B (PCR) (Neg) RSV (RT-PCR) (Neg) Blood Type O Positive Antibody Screen NEGATIVE Crossmatch See Detail Imaging Data Chest x-ray: Attestation: I personally reviewed and interpreted this imaging study as follows: My impression: Chest x-ray negative. Airway clear. No pneumothorax. No consolidation. cardiomegaly with cephalization.. No free air under the diaphragm. No fractures of the skeletal structures. Radiologist's impression: Chest X-Ray 06/11/24 12:44 XR chest 1V portable CLINICAL HISTORY: Chest pain, nonspecific COMPARISON STUDY: Chest radiograph January 09, 2024. FINDINGS: There are median sternotomy wires and mediastinal surgical clips. Moderate cardiomegaly is again noted. There is no pneumothorax or pleural effusion. No consolidation is present. Pulmonary vascular congestion is similar to prior exam. No evidence for overt pulmonary edema. IMPRESSION: No significant change in appearance of the chest. Cardiomegaly with pulmonary vascular congestion. ACT 112: Negative or not required by law. Electronically signed by: Tomy Campos M.D. 06/11/2024 2:07 PM ECG Data Attestation: I personally reviewed and interpreted this ECG as follows: Additional Comments: EKG #1 at 1246: Atrial flutter with a rate of 128. QRS [address] elevation or ST depression EKG #2 at 1305: Atrial flutter with a rate of 128. QRS [address] elevation or ST depression EKG #3 at 1311 status post metoprolol 5 mg IV push: Atrial flutter with rate of 126. QRS [address] elevation or ST depression. EKG #4 at 1317: Atrial flutter with a rate of 113. QRS [address] elevation or ST depression. PVCs present. MDM Narrative 1258: The patient was evaluated in room A2. A complete history and physical exam was performed Cardiac monitoring: An order was placed for continuous cardiac monitoring. The monitor shows a rate of 130 with atrial flutter rhythm interpreted by me Patient appears to be in atrial flutter rhythm. Patient states he did not take his metoprolol today. Metoprolol 5 mg IV push ordered for the patient. 1320: Vital signs stable, heart rate improved status post metoprolol IV. Patient's i-STAT shows low hemoglobin. Will check labs. 1430: Patient started becoming tachycardic in atrial flutter again. Patient was given his home dose of metoprolol. Patient's hemoglobin is 7.8. Creatinine is at baseline at 2. High-sensitivity troponin elevated at 33.7. External medical records reviewed and the patient's hemoglobin on May 30 was 7.9 at which point he was transfused 2 units packed red blood cells which improved his hemoglobin to 9.1. It is thought that the patient's atrial flutter is secondary to his low hemoglobin as well as him not taking metoprolol today. Patient will be admitted to the hospitalist team and transfuse 1 unit packed red blood cells. Impression & Plan Anemia, Chest pain, Atrial flutter Critical Care Time Critical Care Time: Yes Total Critical Care Time: 63 I have personally spent greater than 63 minutes of critical care time in the direct management of this patient. This includes bedside care, interpretation of diagnostic studies, and testing, discussion with consultants, patient, and family members, and other required patient management activities. This 63 minutes is in excess of all separately billable procedures. Discharge Plan Visit Data Chief Complaint: Chest Pain Stated Complaint: TACHYCARDIA/130BPM, CHEST PAIN ED Provider: Arun,Cuauhtemoc Discharge Problem: Anemia, Chest pain, Atrial flutter Patient Disposition: Admitted As Inpatient Discharge Instructions Interventions: ED Discharge Assessment Last Done: 06/11/24 17:22
[2024-06-11] MEDS ORDERED: Nursing to Pharmacy Communication SCH (18:30)
[2024-06-11] MEDS ORDERED: LIDOCAINE 5% 1 PATCH TD PRN (18:50)
[2024-06-11] MEDS: INSULIN ASPART PER UNIT CHARGE SC SCH (19:08)
[2024-06-11] MEDS: DOXYCYCLINE HYCLATE 100 MG CAP PO STA (19:14)
[2024-06-11] MEDS: DOXYCYCLINE HYCLATE 100 MG CAP PO SCH (20:25)
[2024-06-11] MEDS: AZELASTINE HCL 0.1% NASAL 200 SPRAYS/27,400 MCG BTL NAE SCH (20:26)
[2024-06-11] MEDS: ATORVASTATIN 40 MG TAB PO SCH (20:28)
[2024-06-11] MEDS: CHOLECALCIFEROL 125 MCG (5,000 UNITS) TAB PO SCH (20:29)
[2024-06-11] MEDS: METOPROLOL TARTRATE 50 MG TAB PO SCH (20:29)
[2024-06-11] MEDS: FAMOTIDINE 20 MG TAB PO SCH (20:31)
[2024-06-11] MEDS: AMOXICILLIN 875 MG TAB PO SCH (20:32)
[2024-06-11] MEDS: SULFA/TRIMETH 400/80MG TAB PO SCH (20:32)
[2024-06-11 20:40] LABS: Hematocrit (blood only) 27.4 % (42.0-52.0); Hemoglobin 8.6 g/dl (14.0-18.0); Mean Corpuscular Hemoglobin 30.4 pg (25.0-34.0); Mean Corpuscular Hgb Conc 31.4 g/dL (32.0-36.0); Mean Corpuscular Volume 96.8 fL (80.0-100.0); Mean Platelet Volume 9.8 fL (9.4-12.4); Platelet Count 179 K/uL (130-400); RDW Coefficient of Variation 17.9 % (11.5-14.5); RDW Standard Deviation 63.4 fL (36.4-46.3); Red Blood Count 2.83 M/uL (4.70-6.10); White Blood Count 4.59 K/ul (4.8-10.8)
[2024-06-11] MEDS: traMADol HCL 50 MG TABLET PO PRN (20:51)
[2024-06-11] MEDS ORDERED: LANTUS PER UNIT CHARGE SQ SCH (21:00)
[2024-06-11] MEDS ORDERED: BETAMETHASONE DIP AUG (DIPROLENE) 0.05% CR 15 GM TUBE EXT PRN (21:00)
[2024-06-11] MEDS: LANTUS PER UNIT CHARGE SQ SCH (21:13)
[2024-06-11] MEDS: CEROVITE ADV FORMULA TAB PO SCH (23:55)
[2024-06-11] MEDS: BUMETANIDE 1 MG TAB PO SCH (23:56)
[2024-06-12 03:52] LABS: Hemoglobin 9.5 g/dl (14.0-18.0); Mean Corpuscular Hemoglobin 30.6 pg (25.0-34.0); Mean Corpuscular Hgb Conc 32.8 g/dL (32.0-36.0); Mean Corpuscular Volume 93.5 fL (80.0-100.0); Mean Platelet Volume 9.3 fL (9.4-12.4); Platelet Count 178 K/uL (130-400); RDW Coefficient of Variation 19.5 % (11.5-14.5); RDW Standard Deviation 65.4 fL (36.4-46.3); White Blood Count 5.23 K/ul (4.8-10.8)
[2024-06-12 04:08] LABS: BUN Creatinine Ratio 15.1 (10-20); Calcium 9.2 mg/dl (8.6-10.3); Creatinine Clr Calc Pharmacy 47.8 ml/min; Magnesium 2.1 mg/dl (1.7-2.4); Potassium 3.9 mmol/L (3.5-5.1)
[2024-06-12 04:17] LABS: Troponin I High Sensitivity 115.1 pg/ml (0-20)
--- NOTE | 2024-06-12 07:17 | Hospitalist Progress Note ---
Date of Service June 12, 2024 Assessment & Plan (1) Anemia of chronic renal failure, stage 3 (moderate): Plan: #Symptomatic Anemia #Anemia 2/2 CKD3a and iron Longstanding history of anemia - likely due to iron deficiency and anemia of chronic disease with CKD IIIa. GI workup without obvious cause. Follows with hematology. Patient has had multiple blood transfusions - most recently at the end of May (2 units). Patient with SOB and tachycardia prompting ED eval. Ordered 1 unit in the ED for hemoglobin of 7.8. CKD3a - follows with nephrology. On EPO therapy, due for Aranesp today. Baseline 1.8, stable renal function at present. Nephrology consult - appreciate recs Iron profile: within normal limits, mildly low transferrin % but as it is below 20%, venofer 200mg IV given today transfusion threshold < 9: received 2 units blood over the past 24hrs (one in ER, one overnight) Nephrology consult, appreciate recs Received erythropoietin this AM AM CBC (2) Atrial flutter: Plan: Did receive rate control medications in the ED for a fib/flutter. Metoprolol 5 mg IV along with his home dose of metoprolol. Elevated rate likely compensatory for anemia. Improving with transfusion. If does not normalize with correction of anemia could consider further rate control and cardiology consult. Did order an ECHO for completeness. Increasing metoprolol tartrate to 75mg BID Continue monitoring on tele f/u echocardiogram Consider cardio consult (3) Diabetic ulcer of left foot: Plan: Currently being treated with ampicillin and Bactrim. Continue therapy while inpatient with formulary substitutions. abx x 14 days, end 06/17 wound nurse consulted (4) Diabetes mellitus, type 2: Plan: Patient on insulin outpatient. They monitor average BSG with fructosamine - he is at goal. Basal 35 units SQ nightly with bolus meal coverage. Decrease basal to 20 units nightly with SSI, goal BSG 120-160 per outpatient recommendations. (5) CAD, multiple vessel: Plan: Patient with significant cardiac history. CABG x 5. PAD with several stent placements. On metoprolol, clopidogrel, statin therapy. 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 Last ECHO 03/2023. Repeat as above. No signs of fluid overload at present. Continue Imdur, losartan, Bumex, metoprolol, nitro PRN, statin therapy, and Plavix. (6) Elevated troponin: Plan: Likely demand ischemia, currently mild SOB when walking around room - peaked 3:30am at 115 -> 97.3 (7) Symptomatic anemia: Plan: See above Plan NOEMY - CPAP while inpatient Depression - continue sertraline Continue supplements/vitamins Code status: DNR/DNI DVT ppx: SCDs, on Plavix FENGI: Heart healthy, carb consistent Dispo: PCU/Tele Admission and Anticipated Discharge Date Admission Date: June 11, 2024 Supervising Physician Co-Signing Physician Notes Attending attestation Pt seen and examined in concert with Dr. Johns. In agreement with the documented findings as noted in the resident documentation with any exceptions or additions as noted here. Resting comfortably in bed, overall feeling improved without chest pain, palpitations, lightheadedness or fatigue. On examination, S1/S2 nl RRR no MCG. CTAB. Abd NT/ND BS+ve. 2+ pitting edema to the knee Symptomatic anemia in the setting of CKDIIIa, anemia of chronic disease w/ multiple transfusion hx - nephrology consult - s/p 2 UPRBC. Trend CBC. [place]. Nephrology consult Diabetic ulcer, left foot, POA - continue amp, TMP/SMX Else see resident documentation as noted. Subjective Eduardo was seen and evaluated at bedside this AM, appearing in no acute distress sitting on the edge of his bed. Endorses she slept well overnight, notes his SOB, dizziness, and palpitations have much improved overnight after receiving 2U of blood. Informed pt that his troponin is now downtrending and EKG was likely atrial flutter but HR has resolved. Denies any trouble with BM or diet, tolerating well. Review of Systems Review of Systems: no fever, body aches, chills, sweats, headache, vision changes, chest pain Physical Exam Physical Exam: Gen: A&Ox3, no apparent acute distress HEENT: NC/AT, EOM intact, anicteric sclerae Resp: clear to auscultation b/l. no wheezing/rales/rhonchi, no increased work of breathing CV: regular rate and rhythm, no m/r/g, - pulses: 2+ carotid b/l, 2+ R radial ar jose daniel, impalpable LE pulses due to chronic PAD GI/Abd: +BS, soft, non-tender to palpation MSK: b/l LE erythema and 1+ pitting edema with mild tenderness to palpation, otherwise no obvious deformities, 5/5 strength in ext - L lateral 5th metatarsal superficial u lcer with bandage applied, tender to palpation Skin: as noted above on LE Neuro: no facial droop, speech intact, diminished sensation distally on b/l LE Psych: appropriate mood and affect Results & Data Results & Data Vital Signs (Past 12 Hours) Vital Signs Temp Pulse Pulse Resp BP BP Pulse Ox 06/12/24 02:36 36.7 C 110 H 18 134/86 98 06/12/24 02:07 36.9 C 118 H 16 123/84 98 06/12/24 01:47 37 C 100 H 16 142/81 H 98 06/12/24 00:47 37.2 C 101 H 18 142/93 H 97 06/12/24 00:12 37 C 06/11/24 23:47 37.4 C 99 H 16 158/88 H 98 06/11/24 23:36 98 H 17 98 06/11/24 23:17 36.7 C 108 H 16 141/83 H 98 06/11/24 23:02 36.6 C 119 H 16 118/88 98 06/11/24 22:45 36.8 C 118 H 16 119/83 99 06/11/24 20:30 06/11/24 19:19 121/81 O2 Del Method 06/12/24 02:36 Nasal CPAP 06/12/24 02:07 06/12/24 01:47 06/12/24 00:47 06/12/24 00:12 06/11/24 23:47 06/11/24 23:36 06/11/24 23:17 06/11/24 23:02 06/11/24 22:45 06/11/24 20:30 Room Air 06/11/24 19:19 Resident Activity Tracking Resident Involvement: Resident Care Provided Care Provided: Adult Hospital Medicine (1) Anemia of chronic renal failure, stage 3 (moderate) Chronic kidney disease stage 3 subtype: stage 3a (GFR 45-59) Qualified Code(s): N18.31 - Chronic kidney disease, stage 3a; D63.1 - Anemia in chronic kidney disease (2) Atrial flutter Atrial flutter type: unspecified Qualified Code(s): I48.92 - Unspecified atrial flutter (3) Diabetic ulcer of left foot Diabetes mellitus type: type 2 Diabetic foot ulcer location: midfoot Non- pressure ulcer stage: with fat layer exposed Qualified Code(s): E11.621 - Type 2 diabetes mellitus with foot ulcer; L97.422 - Non-pressure chronic ulcer of left heel and midfoot with fat layer exposed (4) Diabetes mellitus, type 2 Chronic kidney disease stage: stage 3 (moderate) Chronic kidney disease stage 3 subtype: stage 3a (GFR 45-59) Diabetes mellitus complication detail: with chronic kidney disease Diabetes mellitus complication status: with kidney complications Diabetes mellitus machine long goods helper insulin use: with machine long goods helper use Qualified Code(s): E11.22 - Type 2 diabetes mellitus with diabetic chronic kidney disease; N18.31 - Chronic kidney disease, stage 3a; Z79.4 - rn long term care (current) use of insulin
[2024-06-12] MEDS: ACETAMINOPHEN 325 MG TAB PO PRN (07:39)
[2024-06-12] MEDS: SPIRONOLACTONE 12.5 MG TAB PO SCH (08:11)
[2024-06-12] MEDS: ISOSORBIDE MONO EXTENDED REL 60 MG TABCR PO SCH (08:13)
[2024-06-12] MEDS: ZINC SULFATE 220 MG CAPSULE PO SCH (08:13)
[2024-06-12] MEDS: LOSARTAN POTASSIUM 50 MG TAB PO SCH (08:13)
[2024-06-12] MEDS: NEPHROCAPS PO SCH (08:15)
[2024-06-12] MEDS ORDERED: NON-FORMULARY MEDICATION (Clindamycin Phosphate 1 % lotion) TOP SCH (09:00)
[2024-06-12] MEDS: SERTRALINE HCL 100 MG TABLET PO SCH (09:05)
--- NOTE | 2024-06-12 09:11 | Electrocardiogram Report ---
Test Reason : Blood Pressure : */* mmHG Vent. 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
[2024-06-12] MEDS: CLOPIDOGREL BISULFATE 75 MG TAB PO SCH (11:21)
[2024-06-12] MEDS: IRON SUCROSE 200 MG in SODIUM CHLORIDE 0.9% 100 ML IV ONE (11:22)
[2024-06-12] MEDS ORDERED: CHROMIUM PICOLINATE 1000 MCG PO SCH (11:30)
[2024-06-12] MEDS ORDERED: NON-FORMULARY MEDICATION (Biotin 1 mg capsule) PO SCH (11:30)
--- NOTE | 2024-06-12 12:33 | Nephrology Consultation ---
Date of Consultation June 12, 2024 Assessment & Plan (1) CKD (chronic kidney disease), stage III: Kidney function stable. Electrolytes normal. Volume status acceptable. Medications are appropriate for kidney function. No changes at this time. (2) Symptomatic anemia: 2 unit PRBC transfusion support provided. Tsat <20. Venofer 200 mg IV today. Aranesp 200 mcg q 2 weeks as outpatient. Due yesterday, Epogen provided today. No active signs of bleeding. Hematology consultation requested for additional recommendations. (3) Cardiomyopathy: Volume status controlled. Continue home medications as Rx. (4) Atrial flutter: Remains on tele. Management per hospitalist team. History of Present Illness Reason for Consultation: CKDIII Requesting Physician: Dillon He MD Attending Physician: Dillon He MD History of Present Illness Mr. Eduardo Acevedo is a 69 year-old male with chronic kidney disease who follows in the [facility] [place] in [place]. I have provided care for Eduardo for several years. He has CKD III-IV A3. Serum creatinine measured at 1.5-2.1 mg/dL. MACR 418 mcg/mg. Urine acellular by history. CKD has been attributed to DM, hypertension, and arterionephrosclerosis/vascular disease. Medical history is notable for diabetes mellitus, hypertension, atherosclerotic coronary artery disease, peripheral vascular disease, congestive heart failure with impaired systolic function, and chronic kidney disease. DM is complicated by notable history of gastroparesis and neuropathy. CKD is complicated by chronic anemia. Eduardo has a significant history of anemia of chronic disease and iron deficiency. Prior evaluation notable for atrophic gastritis. EGD and colonoscopy completed last month. NO active bleeding was identified. Sigmoid diverticulosis and internal hemorrhoids were also noted on colonoscopy. A 3 mm polyp was resected. Eduardo denies any bleeding. He is maintained on Aranesp 200 mcg q 2 weeks through the nephrology clinic but has continued to require intermittent PRBC transfusion support and IV iron infusions intermittent. he received 2 units of PRBC transfusion support in January, 3 units in March, and 2 units in May. Hematology evaluation was obtained. Bone marrow demonstrated mild hypocellularity with significant iron deficiency. Capsule endoscopy demonstrated delayed gastric emptying with limited exam in the first 10 minutes but otherwise unremarkable. EGD and colonoscopy in April and follow up capsule endoscopy have not revealed any bleeding. Atrophic gastritis documented. Eduardo denies any signs of blood loss. SIEP did not demonstrate a monoclonal process. Bone marrow did not show myelodysplasia. Trilineage hematopoiesis noted with findings of ACD with normocytic anemia and significant iron deficiency. Eduardo was admitted to [facility] from April 27 through April 30 with symptomatic anemia. He presented to the ER yesterday with symptomatic anemia and SVT with heart rates of ~128 bpm. 2 unit PRBC transfusion support were provided overnight. Allergies Allergy/AdvReac Type Severity Reaction Status Date / Time animal dander Allergy Intermediate Hives Verified 06/06/24 14:58 bacitracin Allergy Intermediate RASH Verified 06/06/24 14:58 iodine Allergy Intermediate RASH-AVOIDS Verified 06/06/24 14:58 SHELLFISH latex Allergy Intermediate contact Verified 06/06/24 14:58 dermatitis neomycin Allergy Intermediate RASH Verified 06/06/24 14:58 polymyxin B Allergy Intermediate RASH Verified 06/06/24 14:58 gabapentin Allergy Unknown PER RECORDS Verified 06/06/24 14:58 pregabalin Allergy Unknown PER RECORDS Verified 06/06/24 14:58 adhesive AdvReac Mild ALMOST ALL Verified 06/06/24 14:58 GAUZE BANDAGES GIVE HIM A POISON TRISTAN LIKE RASH prednisone AdvReac Mild IRRITABLE Verified 06/06/24 14:58 Home Medications Medication Instructions Recorded Confirmed Type biotin 1 mg capsule 1 mg PO QDL 12/12/18 06/11/24 History chromium picolinate 1,000 mcg 1,000 mcg PO QDL 12/12/18 06/11/24 History tablet docusate sodium 100 mg capsule 100 mg PO BID PRN Constipation 12/12/18 06/11/24 History (Colace) multivitamin 1 tab PO QDL 12/12/18 06/11/24 History vitamins A,C,J-khrt-yvwwgs 4,296 1 cap PO BID 12/12/18 06/11/24 History mcg-226 mg-90 mg capsule (PreserVision AREDS) nitroglycerin 0.4 mg sublingual 0.4 mg sublingual USEASDIRECTD PRN 02/11/19 06/11/24 History tablet chest pain famotidine 20 mg tablet 20 mg PO BID #180 tabs 08/29/19 06/11/24 Rx acetaminophen 650 mg 650 mg PO TID 01/28/20 06/11/24 History tablet,extended release (Tylenol Arthritis Pain) lancets 33 gauge (OneTouch Delica #400 ea 02/12/21 06/05/24 Rx Lancets) OneTouch Ultra Test (blood sugar #500 ea 04/23/21 06/05/24 Rx diagnostic) cholecalciferol (vitamin D3) 125 125 mcg PO TID 09/27/21 06/11/24 History mcg (5,000 unit) tablet (Vitamin D3) magnesium oxide 500 mg PO TID 09/27/21 06/11/24 History clindamycin phosphate 1 % lotion 1 applic topical DAILY #60 mL 02/17/22 06/11/24 Rx omega-3 fatty acids 1,000 mg 1,000 mg PO QDL 05/16/22 06/11/24 History capsule lidocaine 4 % topical patch 1 patch topical DAILY PRN pain #10 07/26/22 06/11/24 Rx (Aspercreme (lidocaine)) ea zinc acetate 50 mg (zinc) capsule 50 mg PO DAILY 01/10/23 06/11/24 History fluocinonide 0.05 % topical cream 1 applic topical BID #60 grams 01/26/23 06/11/24 Rx azelastine 137 mcg (0.1 %) nasal 1 - 2 spray intranasal HS #30 mL 04/28/23 06/11/24 Rx spray blood sugar diagnostic 06/07/23 06/05/24 History pen needle, diabetic 32 gauge x 06/07/23 06/05/24 History 5/32" (BD Ultra-Fine Eli Pen Needle) darbepoetin francisco in polysorbat 200 200 mcg subcut UD 07/05/23 06/11/24 History mcg/mL in polysorbate injection (Aranesp) insulin glargine 100 unit/mL (3 35 unit (0.35 mL) subcut HS #30 mL 09/04/23 06/11/24 Rx mL) subcutaneous pen (Lantus Solostar U-100 Insulin) losartan 50 mg tablet 50 mg PO QAM #90 tabs 10/05/23 06/11/24 Rx atorvastatin 80 mg tablet 80 mg PO QPM #90 tabs 12/06/23 06/11/24 Rx doxycycline hyclate 100 mg tablet 100 mg PO DAILY #30 tabs 01/30/24 06/11/24 Rx sodium ferric gluconate complex in 250 mg IV DAILY 2 doses 02/07/24 06/11/24 Rx sucrose 62.5 mg/5 mL intravenous (Ferrlecit) tramadol 50 mg tablet 50 mg PO TID PRN pain #90 tabs 02/26/24 06/11/24 Rx bumetanide 2 mg tablet 4 mg (2 x 2 mg) PO BID #360 tabs 02/27/24 06/11/24 Rx clopidogrel 75 mg tablet 75 mg PO QDL #90 tabs 03/06/24 06/11/24 Rx isosorbide mononitrate 60 mg 60 mg PO QAM #90 tabs 03/06/24 06/11/24 Rx tablet,extended release 24 hr sertraline 100 mg tablet 200 mg (2 x 100 mg) PO DAILY #180 04/03/24 06/11/24 Rx tabs insulin aspart U-100 100 unit/mL 35 unit (0.35 mL) subcut TIDM #45 04/19/24 06/11/24 Rx (3 mL) subcutaneous pen (Novolog mL FlexPen U-100 Insulin aspart) ferrous sulfate 325 mg (65 mg 325 mg PO BID #180 tabs 04/29/24 06/11/24 Rx iron) tablet,delayed release ampicillin 500 mg capsule 500 mg PO TID 14 days #42 caps 06/04/24 06/11/24 Rx sulfamethoxazole 400 1 tab PO BID 14 days #28 tabs 06/04/24 06/11/24 Rx mg-trimethoprim 80 mg tablet (Bactrim) metoprolol tartrate 50 mg tablet 50 mg PO BID #180 tabs 06/07/24 06/11/24 Rx spironolactone 25 mg tablet 12.5 mg PO DAILY 06/11/24 06/11/24 History vitamin B complex and vitamin C 1 cap PO DAILY 06/11/24 06/11/24 History no.20-folic acid 1 mg capsule (Triphrocaps) Patient History Medical History Sleep apnea Cervical radicular pain Atrophic gastritis B12 deficiency Chronic venous insufficiency Balance problems Fatigue Vitamin D deficiency Pulmonary HTN Carpal tunnel syndrome of right wrist Hx-TIA (transient ischemic attack) ~2021- residual memory loss Hx of myocardial infarction 2008- follows w/ Dr Solis PAD (peripheral artery disease) s/p multiple vascular interventions: left posterior tibilial artery stent, atherectomy and ENTRY LEVEL PROJECT ENGINEER of a total occlusion of the left tibial-peroneal trunk artery, atherectomy and ENTRY LEVEL PROJECT ENGINEER of 78% stenosis left superficial femoral artery/follows with [facility]/Dr. Billings History of DVT (deep vein thrombosis) 2019 > due to "poor veins" Impingement syndrome of right shoulder Dysfunction of right rotator cuff Scoliosis Spinal stenosis Pseudoaneurysm both femoral arteries, follows with [facility]/Dr. Billings- per cardiology records, the pseudoaneurysm was "treated with prolonged manual pressure" Allergic rhinitis Allergy history, latex Surgical History History of right cataract extraction Hx of left cataract extraction History of bone marrow biopsy (10/2023) Hx of CABG CABG x5 (2008) at [facility] *Dr. Solis follows H/O toe surgery right, 5 toe and metatarsal removed History of esophagogastroduodenoscopy (EGD) multiple; pt was to have 03/19/14 but was found to have full stomach and case aborted(no isses with MAC) History of colonoscopy multiple History of appendectomy H/O vascular surgery s/p multiple vascular interventions: left posterior tibilial artery stent, atherectomy and ENTRY LEVEL PROJECT ENGINEER of a total occlusion of the left tibial-peroneal trunk artery, atherectomy and ENTRY LEVEL PROJECT ENGINEER of 78% stenosis left superficial femoral artery; per pt "lots of stents all below the abdomen'; followed by Dr. Billings H/O excision of mass (09/28/21) Excision of abscess mid back. Dr. Mcintosh S/P arthroscopy of right shoulder December 12, 2019 Hx of lymph node excision 1994> left neck History of tooth extraction wisdom teeth S/P cardiac catheterization 2016: "severely diseased left main, total proximal LAD, total proximal left circumflex, total proximal RCA stenoses. SVG to left circumflex marginal patent. SVG to diagonal patent. ATWOOD to LAD patent. SVG to RCA occluded. Medical therapy recommended." per 09/24/19 cardiology note S/P tonsillectomy and adenoidectomy Status post incision and drainage on back> abcess > multiple Family History Brother Coronary heart disease Family/Other Diabetes Heart disease Myocardial infarction Stroke Other No family history of adverse response to anesthesia Denies family history of Ovarian cancer Prostate cancer Breast cancer Lung cancer Colorectal cancer Social History Smoking Status: Former smoker Tobacco Type: Cigarettes Second Hand Exposure: No; Do You Dip or Chew Tobacco: No; Hx Alcohol Use: Yes Hx Substance Use: No Preferred Language: [place] Communication Ability: Effective Visual Impairment: Partially Limited Hearing Ability: Normal Wrecking Mechanic Required: No Beliefs That Will Affect Care: None marital status: Single Current Living Situation: Alone Current Living Situation Comment: [facility] Apartment current occupational status: retired Feels Safe at Home: Yes Childhood Exposure to Second-Hand Smoke: Yes Diet: regular caffeine: Yes Dental Care, Regularly: Yes Physical Activity Frequency: Does not Exercise Seatbelt Use: always Sunscreen Use: No Gender Identity: Male Assistive Devices: Cane and Walker Review of Systems Review of Systems: All systems reviewed & are unremarkable except as noted in HPI & below Respiratory: + dyspnea on exertion Cardiovascular: + dyspnea on exertion, + palpitations an d + lightheadedness; no chest pain (heaviness/tightness), no syncope and no edema Gastrointestinal: no change in bowel habits and no blood in stools Physical Exam Constitutional: well developed; no acute distress Eyes: + anicteric sclerae Neck: normal visual inspection Respiratory: normal respiratory effort, lungs clear to auscultation normal respiratory effort Cardiovascular: Rate/Rhythm: regular rate and regular rhythm Heart Sounds: normal S1 and normal S2 Extremities: no edema Musculoskeletal: Extremities: no cyanosis and no clubbing Skin: + pallor; no jaundice Psychiatric: A+Ox3, euthymic affect Results & Data Vital Signs (Past 12 Hours) Vital Signs Temp Pulse Pulse Resp BP BP Pulse Ox 06/12/24 11:02 36.3 C L 84 18 101/66 98 06/12/24 08:51 95 H 06/12/24 07:29 36.8 C 112 H 16 133/88 96 06/12/24 02:36 36.7 C 110 H 18 134/86 98 06/12/24 02:07 36.9 C 118 H 16 123/84 98 06/12/24 01:47 37 C 100 H 16 142/81 H 98 06/12/24 00:47 37.2 C 101 H 18 142/93 H 97 O2 Del Method 06/12/24 11:02 Room Air 06/12/24 08:51 06/12/24 07:29 Room Air 06/12/24 02:36 Nasal CPAP 06/12/24 02:07 06/12/24 01:47 06/12/24 00:47 Laboratory Results Laboratory Results - last 24 hr 06/11/24 06/11/24 06/11/24 12:40 12:47 13:18 WBC 3.64 L RBC 2.50 L Hgb 7.8 L POC Hgb 7.5 L Hct 25.3 L POC Hct 22 L MCV 101.2 H MCH 31.2 MCHC 30.8 L RDW Std Deviation 59.5 H RDW Coeff of Farhad 16.0 H Plt Count 171 MPV 9.9 Immature Gran % (Auto) 0.3 Neut % (Auto) 67.2 Lymph % (Auto) 15.7 Starr % (Auto) 13.5 Eos % (Auto) 2.5 Baso % (Auto) 0.8 Neut # (Auto) 2.45 Lymph # (Auto) 0.57 L Starr # (Auto) 0.49 Eos # (Auto) 0.09 Baso # (Auto) 0.03 Immature Gran # (Auto) 0.01 Polychromasia 1+ Macrocytosis Present Tear Drop Cells 1+ PT 11.0 INR 1.0 APTT 25 PTT Ratio 0.9 POC Sodium 139 Sodium 140 POC Potassium 3.9 Potassium 4.1 POC Chloride 105 Chloride 106 Carbon Dioxide 25 POC Total CO2 22 L Anion Gap 9 POC Anion Gap 17.0 POC BUN 29 H BUN 31 H Creatinine 2.00 H POC Creatinine 2.2 H Est Cr Clr Drug Dosing 47.6 eGFR 35.46 BUN/Creatinine Ratio 15.5 Glucose 194 H POC Glucose POC Glucose (other) 171 H Calcium 9.2 POC Ioniz Calcium Scout 1.17 Magnesium 1.7 Iron TIBC Transferrin Transferrin % Sat Total Bilirubin 0.2 AST 34 ALT 31 Alkaline Phosphatase 96 Troponin I High Sens 33.7 H Total Protein 6.0 Albumin 3.7 Globulin 2.3 L Albumin/Globulin Ratio 1.6 SARS-CoV-2 (PCR) NEGATIVE Influenza Type A (PCR) Negative Influenza Type B (PCR) Negative RSV (RT-PCR) Negative Blood Type Antibody Screen Crossmatch 06/11/24 06/11/24 06/11/24 14:04 15:35 18:42 WBC RBC Hgb POC Hgb Hct POC Hct MCV MCH MCHC RDW Std Deviation RDW Coeff of Farhad Plt Count MPV Immature Gran % (Auto) Neut % (Auto) Lymph % (Auto) Starr % (Auto) Eos % (Auto) Baso % (Auto) Neut # (Auto) Lymph # (Auto) Starr # (Auto) Eos # (Auto) Baso # (Auto) Immature Gran # (Auto) Polychromasia Macrocytosis Tear Drop Cells PT INR APTT PTT Ratio POC Sodium Sodium POC Potassium Potassium POC Chloride Chloride Carbon Dioxide POC Total CO2 Anion Gap POC Anion Gap POC BUN BUN Creatinine POC Creatinine Est Cr Clr Drug Dosing eGFR BUN/Creatinine Ratio Glucose POC Glucose 155 H POC Glucose (other) Calcium POC Ioniz Calcium Scout Magnesium Iron TIBC Transferrin Transferrin % Sat Total Bilirubin AST ALT Alkaline Phosphatase Troponin I High Sens 40.0 H Total Protein Albumin Globulin Albumin/Globulin Ratio SARS-CoV-2 (PCR) Influenza Type A (PCR) Influenza Type B (PCR) RSV (RT-PCR) Blood Type O Positive Antibody Screen NEGATIVE Crossmatch See Detail 06/11/24 06/11/24 06/12/24 19:52 20:03 03:30 WBC 4.59 L 5.23 RBC 2.83 L 3.10 L Hgb 8.6 L 9.5 L POC Hgb Hct 27.4 L 29.0 L POC Hct MCV 96.8 93.5 MCH 30.4 30.6 MCHC 31.4 L 32.8 RDW Std Deviation 63.4 H 65.4 H RDW Coeff of Farhad 17.9 H 19.5 H Plt Count 179 178 MPV 9.8 9.3 L Immature Gran % (Auto) Neut % (Auto) Lymph % (Auto) Starr % (Auto) Eos % (Auto) Baso % (Auto) Neut # (Auto) Lymph # (Auto) Starr # (Auto) Eos # (Auto) Baso # (Auto) Immature Gran # (Auto) Polychromasia Macrocytosis Tear Drop Cells PT INR APTT PTT Ratio POC Sodium Sodium 138 POC Potassium Potassium 3.9 POC Chloride Chloride 103 Carbon Dioxide 27 POC Total CO2 Anion Gap 8 POC Anion Gap POC BUN BUN 30 H Creatinine 1.99 H POC Creatinine Est Cr Clr Drug Dosing 47.8 eGFR 35.68 BUN/Creatinine Ratio 15.1 Glucose 128 H POC Glucose 193 H POC Glucose (other) Calcium 9.2 POC Ioniz Calcium Scout Magnesium 2.1 Iron 77 TIBC 396 Transferrin 283 Transferrin % Sat 19 L Total Bilirubin AST ALT Alkaline Phosphatase Troponin I High Sens 66.1 H* D 115.1 H* D Total Protein Albumin Globulin Albumin/Globulin Ratio SARS-CoV-2 (PCR) Influenza Type A (PCR) Influenza Type B (PCR) RSV (RT-PCR) Blood Type Antibody Screen Crossmatch 06/12/24 06/12/24 06/12/24 07:19 07:41 10:57 WBC RBC Hgb POC Hgb Hct POC Hct MCV MCH MCHC RDW Std Deviation RDW Coeff of Farhad Plt Count MPV Immature Gran % (Auto) Neut % (Auto) Lymph % (Auto) Starr % (Auto) Eos % (Auto) Baso % (Auto) Neut # (Auto) Lymph # (Auto) Starr # (Auto) Eos # (Auto) Baso # (Auto) Immature Gran # (Auto) Polychromasia Macrocytosis Tear Drop Cells PT INR APTT PTT Ratio POC Sodium Sodium POC Potassium Potassium POC Chloride Chloride Carbon Dioxide POC Total CO2 Anion Gap POC Anion Gap POC BUN BUN Creatinine POC Creatinine Est Cr Clr Drug Dosing eGFR BUN/Creatinine Ratio Glucose POC Glucose 130 H 172 H POC Glucose (other) Calcium POC Ioniz Calcium Scout Magnesium Iron TIBC Transferrin Transferrin % Sat Total Bilirubin AST ALT Alkaline Phosphatase Troponin I High Sens 97.3 H* D Total Protein Albumin Globulin Albumin/Globulin Ratio SARS-CoV-2 (PCR) Influenza Type A (PCR) Influenza Type B (PCR) RSV (RT-PCR) Blood Type Antibody Screen Crossmatch Diagnostic Findings XR chest 1V portable COMPARISON STUDY: Chest radiograph January 09, 2024. FINDINGS: There are median sternotomy wires and mediastinal surgical clips. Moderate cardiomegaly is again noted. There is no pneumothorax or pleural effusion. No consolidation is present. Pulmonary vascular congestion is similar to prior exam. No evidence for overt pulmonary edema. IMPRESSION: No significant change in appearance of the chest. Cardiomegaly with pulmonary vascular congestion. ECG Rate (beats per minute): 95 Rhythm: atrial flutter Additional Comments: variable AV block PG Care Time/CCT Total # of Minutes Spent Total Time Spent with Patient: Total time spent is greater than 50% in coordination of care (as documented) at patient's floor/unit and/or counseling patient: Coding Level of Care Code 53255 IN/OBS CONSULT LVL 4,60M Diagnoses CKD (chronic kidney disease), stage III N18.3 Symptomatic anemia D64.9 Cardiomyopathy I42.9 Atrial flutter, unspecified type I48.92 Atrial flutter type: unspecified (4) Atrial flutter Atrial flutter type: unspecified Qualified Code(s): I48.92 - Unspecified atrial flutter
--- NOTE | 2024-06-12 14:23 | XCELERA ---
[id number] \\[id number]
--- NOTE | 2024-06-12 14:51 | Electrocardiogram Report ---
Test Reason : Blood Pressure : */* mmHG Vent. Rate : 128 BPM Atrial Rate : * BPM P-R Int : * ms QRS Dur : 122 ms QT Int : 348 ms P-R-T Axes : * -34 161 degrees QTcB Int : 508 ms Supraventricular tachycardia Left axis deviation Non-specific intra-ventricular conduction delay Left ventricular hypertrophy with repolarization abnormality Old Anterior infarct Abnormal ECG When compared with ECG of 11-Jun-2024 12:46, No significant change was found Confirmed by Puma Allen ([id number]) on 06/12/2024 2:51:09 PM Referred By: REFERRED SELF Confirmed By: Puma Allen
--- NOTE | 2024-06-12 14:52 | Electrocardiogram Report ---
Test Reason : Blood Pressure : */* mmHG Vent. Rate : 126 BPM Atrial Rate : * BPM P-R Int : * ms QRS Dur : 124 ms QT Int : 366 ms P-R-T Axes : * -33 148 degrees QTcB Int : 530 ms Supraventricular tachycardia Old Anterior infarct Non-specific intra-ventricular conduction delay Left ventricular hypertrophy with repolarization abnormality Abnormal ECG When compared with ECG of 11-Jun-2024 13:05, No significant change was found Confirmed by Puma Allen ([id number]) on 06/12/2024 2:51:40 PM Referred By: REFERRED SELF Confirmed By: Puma Allen
--- NOTE | 2024-06-12 14:53 | Electrocardiogram Report ---
Test Reason : Blood Pressure : */* mmHG Vent. Rate : 113 BPM Atrial Rate : * BPM P-R Int : * ms QRS Dur : 126 ms QT Int : 372 ms P-R-T Axes : * -28 142 degrees QTcB Int : 510 ms Atrial flutter with variable A-V block Non-specific intra-ventricular conduction block Left ventricular hypertrophy with repolarization abnormality Old Anterior infarct Abnormal ECG When compared with ECG of 11-Jun-2024 13:11, HR has decreased by 13 bpm Atrial flutter now discernable Confirmed by Puma Allen ([id number]) on 06/12/2024 2:52:58 PM Referred By: REFERRED SELF Confirmed By: Puma Allen
[2024-06-12] MEDS: EPOETIN ALFA 40,000 UNITS/ML VIAL SQ STA (15:36)
[2024-06-12] MEDS: BUMETANIDE 1 MG TAB PO SCH (17:01)
[2024-06-12] MEDS: DOCUSATE SODIUM 100 MG CAP PO PRN (20:04)
[2024-06-12] MEDS: METOPROLOL TARTRATE 25 MG TAB PO SCH (20:04)
[2024-06-13 06:22] LABS: Hematocrit (blood only) 26.6 % (42.0-52.0); Hemoglobin 8.6 g/dl (14.0-18.0); Mean Corpuscular Hemoglobin 30.6 pg (25.0-34.0); Mean Corpuscular Hgb Conc 32.3 g/dL (32.0-36.0); Mean Corpuscular Volume 94.7 fL (80.0-100.0); Mean Platelet Volume 9.6 fL (9.4-12.4); Platelet Count 159 K/uL (130-400); RDW Coefficient of Variation 18.4 % (11.5-14.5); RDW Standard Deviation 64.1 fL (36.4-46.3); Red Blood Count 2.81 M/uL (4.70-6.10); White Blood Count 3.66 K/ul (4.8-10.8)
[2024-06-13 06:42] LABS: BUN Creatinine Ratio 20.3 (10-20); Creatinine Clr Calc Pharmacy 49.3 ml/min; Potassium 3.9 mmol/L (3.5-5.1)
--- NOTE | 2024-06-13 07:13 | Hospitalist Progress Note ---
Date of Service June 13, 2024 Assessment & Plan (1) Anemia of chronic renal failure, stage 3 (moderate): Plan: #Symptomatic Anemia #Anemia 2/2 CKD3a and iron Longstanding history of anemia - likely due to iron deficiency and anemia of chronic disease with CKD IIIa. GI workup without obvious cause. Follows with hematology. Patient has had multiple blood transfusions. Patient with SOB and tachycardia prompting ED eval. Ordered 1 unit in the ED for hemoglobin of 7.8. CKD3a - follows with nephrology. On EPO therapy. Baseline 1.8, stable renal function at present. Iron profile: within normal limits, mildly low transferrin % but as it is below 20%, venofer 200mg IV given 06/12/24 transfusion threshold < 9: received 1 unit today 06/13/24: 8.6 -> 9.7 Nephrology consult, appreciate recs - consider capsule endoscopy Received erythropoietin 06/12/24 AM AM CBC (2) Atrial flutter: Plan: Did receive rate control medications in the ED for a fib/flutter. Elevated rate likely compensatory for anemia. Improving with transfusions. Continue metoprolol tartrate 75mg BID Continue monitoring on tele Echo 06/12/24: LVEF 40-45%, severe inferior wall hypokinesis, moderate mitral and tricuspid regurgitation, IVC moderately dilated Consider anticoagulation (3) Diabetic ulcer of left foot: Plan: Currently being treated with ampicillin and Bactrim. Continue therapy while inpatient with formulary substitutions. abx x 14 days, end 06/17 wound nurse consulted (4) Diabetes mellitus, type 2: Plan: Patient on insulin outpatient. They monitor average BSG with fructosamine - he is at goal. Basal 35 units SQ nightly with bolus meal coverage. Goal to decrease basal to 20 units nightly with SSI, goal BSG 120-160 per outpatient recommendations. (5) CAD, multiple vessel: Plan: Patient with significant cardiac history. CABG x 5. PAD with several stent placements. On metoprolol, clopidogrel, statin therapy. 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 Echo 06/12/24: LVEF 40-45%, severe inferior wall hypokinesis, moderate mitral and tricuspid regurgitation, IVC moderately dilated Otherwise no signs of fluid overload at present. Continue Imdur, losartan, Bumex, metoprolol, nitro PRN, statin therapy, and Plavix. (6) Elevated troponin: Plan: Likely demand ischemia, currently mild SOB when walking around room - peaked 3:30am at 115 -> 97.3 (7) Symptomatic anemia: Plan: See above Plan NOEMY - CPAP while inpatient Depression - continue sertraline Continue supplements/vitamins Code status: DNR/DNI DVT ppx: SCDs, on Plavix FENGI: Heart healthy, carb consistent Dispo: PCU/Tele Admission and Anticipated Discharge Date Admission Date: June 11, 2024 Supervising Physician Co-Signing Physician Notes Attending attestation Pt seen and examined in concert with Dr. Alba. In agreement with the documented findings as noted in the resident documentation with any exceptions or additions as noted here. Resting comfortably in bed, overall feeling approaching baseline without chest pain, palpitations, lightheadedness or fatigue. On examination, S1/S2 nl RRR no MCG. CTAB. Abd NT/ND BS+ve. 2+ pitting edema to the knee Symptomatic anemia in the setting of CKDIIIa, anemia of chronic disease w/ multiple transfusion hx - nephrology consult - s/p 3 UPRBC. Trend CBC daily and post txf. Guiac stools. Hematology reports no further w/u rec'd re: anemia. Diabetic ulcer, left foot, POA - continue amp, TMP/SMX Else see resident documentation as noted. Subjective Eduardo was seen and evaluated at bedside this AM, sitting comfortably in his chair. Receiving blood during encounter. Endorses he slept well overnight, notes his SOB, dizziness, and palpitations continue to be improved from prior. Informed pt that his troponin is now downtrending and EKG was likely atrial flutter but HR has resolved. Denies any trouble with BM or diet, tolerating well. Understands that if his hemoglobin remains stable he should be safe to go home tomorrow. Amenable to checking fecal occult blood to determine need for outpatient capsule endoscopy. Review of Systems Review of Systems: no fever, body aches, chills, sweats, headache, vision changes, chest pain Physical Exam Physical Exam: Gen: A&Ox3, no apparent acute distress HEENT: NC/AT, EOM intact, anicteric sclerae Resp: clear to auscultation b/l. no wheezing/rales/rhonchi, no increased work of breathing CV: regular rate and rhythm, no m/r/g, - pulses: 2+ carotid b/l, 2+ R radial ar jose daniel, impalpable LE pulses due to chronic PAD GI/Abd: +BS, soft, non-tender to palpation MSK: b/l LE erythema and 1+ pitting edema with mild tenderness to palpation, otherwise no obvious deformities, 5/5 strength in ext - L lateral 5th metatarsal superficial u lcer with bandage applied, tender to palpation Skin: as noted above on LE Neuro: no facial droop, speech intact, diminished sensation distally on b/l LE Psych: appropriate mood and affect Results & Data Results & Data Vital Signs (Past 12 Hours) Vital Signs Temp Pulse Pulse Resp BP Pulse Ox O2 Del Method 06/13/24 03:08 36.6 C 55 L 18 124/78 99 Room Air 06/13/24 02:00 Room Air 06/12/24 22:48 84 06/12/24 22:46 36.8 C 86 18 115/85 98 Room Air 06/12/24 19:55 36.7 C 89 20 120/67 94 Room Air 06/12/24 19:35 Room Air Resident Activity Tracking Resident Involvement: Resident Care Provided Care Provided: Adult [facility] Medicine (1) Anemia of chronic renal failure, stage 3 (moderate) Chronic kidney disease stage 3 subtype: stage 3a (GFR 45-59) Qualified Code(s): N18.31 - Chronic kidney disease, stage 3a; D63.1 - Anemia in chronic kidney disease (2) Atrial flutter Atrial flutter type: unspecified Qualified Code(s): I48.92 - Unspecified atrial flutter (3) Diabetic ulcer of left foot Diabetes mellitus type: type 2 Diabetic foot ulcer location: midfoot Non- pressure ulcer stage: with fat layer exposed Qualified Code(s): E11.621 - Type 2 diabetes mellitus with foot ulcer; L97.422 - Non-pressure chronic ulcer of left heel and midfoot with fat layer exposed (4) Diabetes mellitus, type 2 Chronic kidney disease stage: stage 3 (moderate) Chronic kidney disease stage 3 subtype: stage 3a (GFR 45-59) Diabetes mellitus complication detail: with chronic kidney disease Diabetes mellitus complication status: with kidney complications Diabetes mellitus adjunct faculty for medical terminology insulin use: with adjunct faculty for medical terminology use Qualified Code(s): E11.22 - Type 2 diabetes mellitus with diabetic chronic kidney disease; N18.31 - Chronic kidney disease, stage 3a; Z79.4 - shelter (current) use of insulin
[2024-06-13] MEDS ORDERED: SODIUM CHLORIDE 0.9% 50 ML IV PRN (07:20)
[2024-06-13] MEDS: CALCIUM GLUCONATE 1,000 MG/60 ML BAG IV STA (08:11)
--- NOTE | 2024-06-13 09:09 | Oncology Consultation ---
Date of Consultation June 13, 2024 Assessment & Plan (1) Symptomatic anemia: Transfuse if the hemoglobin is less than 8 g/dL or the patient has cardiovascular instability. This is longstanding normocytic normochromic anemia secondary to anemia of chronic disease due to underlying CKD, chronic infection. At this point I do not see rationale for blood transfusion unless and until the hemoglobin is less than 8 for he has cardiovascular abnormalities. He already has had extensive GI workup as well as a bone marrow biopsy. No other intervention is warranted at this point. Plan Hematology will continue to follow the patient make appropriate recomme ndations. Thank you for this interesting hematological consult. History of Present Illness Reason for Consultation: Normocytic normochromic anemia Attending Physician: Dillon He MD History of Present Illness This is a 68-year-old male that presents for evaluation for anemia. He follows with Dr. Han Silva who referred the patient to us. Patient did require IV iron infusion through the [facility] and did receive vitamin B12 supplementation. Patient is currently receiving Aranesp 200 mg every other week. It is noted the patient had occult blood in his stool 02/21/2023. Past medical history includes current treatment for osteomyelitis of the foot, diabetic foot ulcer, diabetes mellitus, chronic kidney disease, atrophic gastritis, pulmonary hypertension, B12 deficiency, chronic venous insufficiency, cardiomyopathy, complex sleep apnea syndrome, nocturnal hypoxemia, peripheral arterial disease, multivessel CAD, CAD, hypertension, history of CABG, presence of arterial stent, generalized osteoarthritis, GERD, dyslipidemia, depression, diabetic neuropathy, anemia. Patient underwent EGD 04/18/[address] Ku Findings: Non-severe esophagitis with no bleeding was found at the gastroesophageal junction. Biopsies were taken with a cold forceps for histology. Estimated blood loss: none. Diffuse mild inflammation characterized by erythema was found in the stomach. Biopsies were taken with a cold forceps for Helicobacter pylori testing. Estimated blood loss: none. Diffuse moderate mucosal changes characterized by discoloration were found in the second portion of the duodenum. Biopsies for histology were taken with a cold forceps for evaluation of celiac disease. Estimated blood loss: none. A small amount of food (residue) was found in the gastric body. Impression: - Non-severe esophagitis with no bleeding. Biopsied. - Gastritis. Biopsied. - Mucosal changes in the duodenum. Biopsied. Endoscopy 04/18/[address] Salimi Findings: A 3 mm polyp was found in the descending colon. The polyp was sessile. The polyp was removed with a hot snare. Resection and retrieval were complete. Estimated blood loss: none. A 4 mm polyp was found in the ascending colon. The polyp was sessile. The polyp was removed with a hot snare. Resection and retrieval were complete. Estimated blood loss: none. A 3 mm polyp was found in the ascending colon. The polyp was sessile. The polyp was removed with a piecemeal technique using a cold biopsy forceps. Resection and retrieval were complete. Estimated blood loss: none. A few medium-mouthed diverticula were found in the sigmoid colon. Non-bleeding internal hemorrhoids were found. The hemorrhoids were small. Impression: - Preparation of the colon was poor. - One 3 mm polyp in the descending colon, removed with a hot snare. Resected and retrieved. - One 4 mm polyp in the ascending colon, removed with a hot snare. Resected and retrieved. - One 3 mm polyp in the ascending colon, removed piecemeal using a cold biopsy forceps. Resected and retrieved. Pertinent Labs from 06/2023: WBC 4.82 RBC 2.7 Hemoglobin 8.3 Hematocrit 26.1 MCV 96.7 MCH 30.7 MCHC 31.8 Platelet count 192 BUN 32 Creatinine 1.55 (at baseline) Calcium 9.2 AST 19 ALT 18 Alkaline phosphatase 91 Total bilirubin 0.6 Iron panel from 05/30/2023 Iron 24 TIBC 265 Unsaturated IBC 241 Transferrin 9% Ferritin 33.6 Labs 03/28/2023 Folic acid >22.3 Vit B12 172 Vit D 25-oh 86.3 Immunology performed 04/13/2021 Serum immunofixation with no evidence of monoclonal antibodies Free kappa light chains 23.1 (3.3-19.4) Free lambda light chains 18.8 (5.7-26.3) Free kappa/lambda ratio 1.23 Diabetic foot ulcer. 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 Receiving monthly Vit B12 Has been receiving PRBCs about monthly since . Quit smoking in 2008. Smoked for 30 years 1ppd. 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 The other portion of the marrow is still mildly hypocellular (30%) but otherwise unremarkable. Clinical correlation required EGD, EGD 03/19/2024: Normal esophagus Large amount of food in the stomach no specimens collected the patient is a very pleasant 69-year-old man with a history of coronary artery disease, insulin-dependent diabetes mellitus chronic kidney disease, hyperlipidemia, obstructive sleep apnea on CPAP and anemia who presented to the hospital with shortness of breath and heart palpitations. He has above- mentioned hematological history. He has had longstanding anemia for which she has been on erythropoietin stimulating agents and iron infusions. He had a bone marrow biopsy in October 2023 which failed to reveal any evidence of myelodysplastic syndrome. Currently he is very tired and fatigued. He had a recent foot wound for which she is on antibiotics. Allergies Allergy/AdvReac Type Severity Reaction Status Date / Time animal dander Allergy Intermediate Hives Verified 06/06/24 14:58 bacitracin Allergy Intermediate RASH Verified 06/06/24 14:58 iodine Allergy Intermediate RASH-AVOIDS Verified 06/06/24 14:58 SHELLFISH latex Allergy Intermediate contact Verified 06/06/24 14:58 dermatitis neomycin Allergy Intermediate RASH Verified 06/06/24 14:58 polymyxin B Allergy Intermediate RASH Verified 06/06/24 14:58 gabapentin Allergy Unknown PER RECORDS Verified 06/06/24 14:58 pregabalin Allergy Unknown PER RECORDS Verified 06/06/24 14:58 adhesive AdvReac Mild ALMOST ALL Verified 06/06/24 14:58 GAUZE BANDAGES GIVE HIM A POISON TRISTAN LIKE RASH prednisone AdvReac Mild IRRITABLE Verified 06/06/24 14:58 Home Medications Medication Instructions Recorded Confirmed Type biotin 1 mg capsule 1 mg PO QDL 12/12/18 06/11/24 History chromium picolinate 1,000 mcg 1,000 mcg PO QDL 12/12/18 06/11/24 History tablet docusate sodium 100 mg capsule 100 mg PO BID PRN Constipation 12/12/18 06/11/24 History (Colace) multivitamin 1 tab PO QDL 12/12/18 06/11/24 History vitamins A,C,A-ugvl-gxxalp 4,296 1 cap PO BID 12/12/18 06/11/24 History mcg-226 mg-90 mg capsule (PreserVision AREDS) nitroglycerin 0.4 mg sublingual 0.4 mg sublingual USEASDIRECTD PRN 02/11/19 06/11/24 History tablet chest pain famotidine 20 mg tablet 20 mg PO BID #180 tabs 08/29/19 06/11/24 Rx acetaminophen 650 mg 650 mg PO TID 01/28/20 06/11/24 History tablet,extended release (Tylenol Arthritis Pain) lancets 33 gauge (OneTouch Delica #400 ea 02/12/21 06/05/24 Rx Lancets) OneTouch Ultra Test (blood sugar #500 ea 04/23/21 06/05/24 Rx diagnostic) cholecalciferol (vitamin D3) 125 125 mcg PO TID 09/27/21 06/11/24 History mcg (5,000 unit) tablet (Vitamin D3) magnesium oxide 500 mg PO TID 09/27/21 06/11/24 History clindamycin phosphate 1 % lotion 1 applic topical DAILY #60 mL 02/17/22 06/11/24 Rx omega-3 fatty acids 1,000 mg 1,000 mg PO QDL 05/16/22 06/11/24 History capsule lidocaine 4 % topical patch 1 patch topical DAILY PRN pain #10 07/26/22 06/11/24 Rx (Aspercreme (lidocaine)) ea zinc acetate 50 mg (zinc) capsule 50 mg PO DAILY 01/10/23 06/11/24 History fluocinonide 0.05 % topical cream 1 applic topical BID #60 grams 01/26/2308/30 Rx azelastine 137 mcg (0.1 %) nasal 1 - 2 spray intranasal HS #30 mL 04/28/23 06/11/24 Rx spray blood sugar diagnostic 06/07/23 06/05/24 History pen needle, diabetic 32 gauge x 06/07/23 06/05/24 History 5/32" (BD Ultra-Fine Eli Pen Needle) darbepoetin francisco in polysorbat 200 200 mcg subcut UD 07/05/23 06/11/24 History mcg/mL in polysorbate injection (Aranesp) insulin glargine 100 unit/mL (3 35 unit (0.35 mL) subcut HS #30 mL 09/04/23 06/11/24 Rx mL) subcutaneous pen (Lantus Solostar U-100 Insulin) losartan 50 mg tablet 50 mg PO QAM #90 tabs 10/05/23 06/11/24 Rx atorvastatin 80 mg tablet 80 mg PO QPM #90 tabs 12/06/23 06/11/24 Rx doxycycline hyclate 100 mg tablet 100 mg PO DAILY #30 tabs 01/30/24 06/11/24 Rx sodium ferric gluconate complex in 250 mg IV DAILY 2 doses 02/07/24 06/11/24 Rx sucrose 62.5 mg/5 mL intravenous (Ferrlecit) tramadol 50 mg tablet 50 mg PO TID PRN pain #90 tabs 02/26/24 06/11/24 Rx bumetanide 2 mg tablet 4 mg (2 x 2 mg) PO BID #360 tabs 02/27/24 06/11/24 Rx clopidogrel 75 mg tablet 75 mg PO QDL #90 tabs 03/06/24 06/11/24 Rx isosorbide mononitrate 60 mg 60 mg PO QAM #90 tabs 03/06/24 06/11/24 Rx tablet,extended release 24 hr sertraline 100 mg tablet 200 mg (2 x 100 mg) PO DAILY #180 04/03/24 06/11/24 Rx tabs insulin aspart U-100 100 unit/mL 35 unit (0.35 mL) subcut TIDM #45 04/19/24 06/11/24 Rx (3 mL) subcutaneous pen (Novolog mL FlexPen U-100 Insulin aspart) ferrous sulfate 325 mg (65 mg 325 mg PO BID #180 tabs 04/29/24 06/11/24 Rx iron) tablet,delayed release ampicillin 500 mg capsule 500 mg PO TID 14 days #42 caps 06/04/24 06/11/24 Rx sulfamethoxazole 400 1 tab PO BID 14 days #28 tabs 06/04/24 06/11/24 Rx mg-trimethoprim 80 mg tablet (Bactrim) metoprolol tartrate 50 mg tablet 50 mg PO BID #180 tabs 06/07/24 06/11/24 Rx spironolactone 25 mg tablet 12.5 mg PO DAILY 06/11/24 06/11/24 History vitamin B complex and vitamin C 1 cap PO DAILY 06/11/24 06/11/24 History no.20-folic acid 1 mg capsule (Triphrocaps) Patient History Medical History Sleep apnea Cervical radicular pain Atrophic gastritis B12 deficiency Chronic venous insufficiency Balance problems Fatigue Vitamin D deficiency Pulmonary HTN Carpal tunnel syndrome of right wrist Hx-TIA (transient ischemic attack) ~2021- residual memory loss Hx of myocardial infarction 2008- follows w/ Dr Solis PAD (peripheral artery disease) s/p multiple vascular interventions: left posterior tibilial artery stent, atherectomy and E[employer] CHIL[employer]OD DIRECTOR of a total occlusion of the left tibial-peroneal trunk artery, atherectomy and [employer] CHILDH[employer]OD DIRECTOR of 78% stenosis left superficial femoral artery/follows with [facility]/Dr. Billings History of DVT (deep vein thrombosis) 2018 > due to "poor veins" Impingement syndrome of right shoulder Dysfunction of right rotator cuff Scoliosis Spinal stenosis Pseudoaneurysm both femoral arteries, follows with [facility]/Dr. Billings- per cardiology records, the pseudoaneurysm was "treated with prolonged manual pressure" Allergic rhinitis Allergy history, latex Surgical History History of right cataract extraction Hx of left cataract extraction History of bone marrow biopsy (10/2023) Hx of CABG CABG x5 (2008) at [facility] *Dr. Solis follows H/O toe surgery right, 5 toe and metatarsal removed History of esophagogastroduodenoscopy (EGD) multiple; pt was to have 03/19/14 but was found to have full stomach and case aborted(no isses with MAC) History of colonoscopy multiple History of appendectomy H/O vascular surgery s/p multiple vascular interventions: left posterior tibilial artery stent, atherectomy and [employer] CHIL[employer]OD DIRECTOR of a total occlusion of the left tibial-peroneal trunk artery, atherectomy and E[employer] CHILDHOOD DIRECTOR of 78% stenosis left superficial femoral artery; per pt "lots of stents all below the abdomen'; followed by Dr. Billings H/O excision of mass (09/28/21) Excision of abscess mid back. Dr. Mcintosh S/P arthroscopy of right shoulder December 12, 2019 Hx of lymph node excision 1994> left neck History of tooth extraction wisdom teeth S/P cardiac catheterization 2016: "severely diseased left main, total proximal LAD, total proximal left circumflex, total proximal RCA stenoses. SVG to left circumflex marginal patent. SVG to diagonal patent. ATWOOD to LAD patent. SVG to RCA occluded. Medical therapy recommended." per 09/24/19 cardiology note S/P tonsillectomy and adenoidectomy Status post incision and drainage on back> abcess > multiple Family History Brother Coronary heart disease Family/Other Diabetes Heart disease Myocardial infarction Stroke Other No family history of adverse response to anesthesia Denies family history of Ovarian cancer Prostate cancer Breast cancer Lung cancer Colorectal cancer Social History Smoking Status: Former smoker Tobacco Type: Cigarettes Second Hand Exposure: No; Do You Dip or Chew Tobacco: No; Hx Alcohol Use: Yes Hx Substance Use: No Preferred Language: Romansh Communication Ability: Effective Visual Impairment: Partially Limited Hearing Ability: Normal Roll Over Press Operator Required: No Beliefs That Will Affect Care: None marital status: Single Current Living Situation: Alone Current Living Situation Comment: [facility] current occupational status: retired Feels Safe at Home: Yes Childhood Exposure to Second-Hand Smoke: Yes Diet: regular caffeine: Yes Dental Care, Regularly: Yes Physical Activity Frequency: Does not Exercise Seatbelt Use: always Sunscreen Use: No Gender Identity: Male Assistive Devices: Cane and Walker Review of Systems Review of Systems: All systems reviewed & are unremarkable except as noted in HPI & below Constitutional: as per Subjective / HPI Eyes: as per Subjective / HPI Ear, Nose, Mouth, Throat: as per Subjective / HPI Respiratory: as per Subjective / HPI Cardiovascular: as per Subjective / HPI Gastrointestinal: as per Subjective / HPI Genitourinary: + as per Subjective / HPI Musculoskeletal: as per Subjective / HPI Integumentary: as per Subjective / HPI Neurologic: as per Subjective / HPI Psychiatric: as per Subjective / HPI Endocrine: as per Subjective / HPI Physical Exam Constitutional: WD/WN, vitals as above Eyes: PERRL, conjunctivae normal, anicteric sclerae ENMT: external ear and nose normal, oropharynx normal Neck: trachea midline, no thyromegaly Respiratory: normal respiratory effort, lungs clear to auscultation Cardiovascular: RRR, no murmur, no edema Gastrointestinal (Abdomen): normal bowel sounds, soft, nontender, no hepatosplenomegaly Musculoskeletal: no cyanosis or clubbing, extremities motor strength 5/5 Skin: no rashes, warm and dry Neurologic: patellar DTR's 2+ bilat, sensation intact Results & Data Vital Signs (Past 12 Hours) Vital Signs Temp Pulse Pulse Resp BP BP Pulse Ox 06/13/24 08:55 36.4 C L 106 H 16 115/75 97 06/13/24 07:40 36.3 C L 87 16 150/95 H 98 06/13/24 03:08 36.6 C 55 L 18 124/78 99 06/13/24 02:00 06/12/24 22:48 84 06/12/24 22:46 36.8 C 86 18 115/85 98 O2 Del Method 06/13/24 08:55 06/13/24 07:40 Room Air 06/13/24 03:08 Room Air 06/13/24 02:00 Room Air 06/12/24 22:48 06/12/24 22:46 Room Air
--- NOTE | 2024-06-13 10:14 | Nephrology Progress Note ---
Date of Service June 13, 2024 Assessment & Plan (1) CKD (chronic kidney disease), stage III: Plan: Kidney function stable. Electrolytes normal. Volume status acceptable. Medications are appropriate for kidney function. (2) Symptomatic anemia: Plan: 2 unit PRBC transfusion support provided on admission. Additional 1 unit being provided this AM. Venofer 200 mg IV provided yesterday. . Epogen 70704 units provided yesterday. No active signs of bleeding. GI evaluation reviewed. I wonder if the adequacy of the capsule endoscopy was adequate or if this evaluation should be revisited? Hematology consultation pending. (3) Cardiomyopathy: Plan: Volume status controlled. Continue home medications as Rx. (4) Atrial flutter: Plan: Discussed with hospitalist team this AM. Admission and Anticipated Discharge Date Admission Date: June 11, 2024 Subjective No acute events overnight. Eduardo states that he feels well. No melena or hematochezia reported. He does not endorse any chest pains or palpitations. He is out of bed to chair. PRBC infusing. Tolerating infusion well. Review of Systems Review of Systems: All systems reviewed & are unremarkable except as noted in HPI & below Physical Exam Constitutional: well developed; no acute distress Eyes: + anicteric sclerae Neck: normal visual inspection Respiratory: normal respiratory effort; no respiratory distress Cardiovascular: Rate/Rhythm: + irregularly irregular Musculoskeletal: Extremities: no cyanosis and no clubbing Skin: no jaundice Psychiatric: A+Ox3, euthymic affect Results & Data Vital Signs (Past 12 Hours) Vital Signs Temp Pulse Pulse Resp BP BP Pulse Ox 06/13/24 09:43 36.3 C L 109 H 18 127/79 97 06/13/24 09:28 36.6 C 100 H 16 110/71 99 06/13/24 09:11 36.4 C L 102 H 16 122/57 L 94 06/13/24 08:55 36.4 C L 106 H 16 115/75 97 06/13/24 07:40 36.3 C L 87 16 150/95 H 98 06/13/24 03:08 36.6 C 55 L 18 124/78 99 06/13/24 02:00 06/12/24 22:48 84 06/12/24 22:46 36.8 C 86 18 115/85 98 O2 Del Method O2 Flow Rate 06/13/24 09:43 06/13/24 09:28 0 06/13/24 09:11 06/13/24 08:55 06/13/24 07:40 Room Air 06/13/24 03:08 Room Air 06/13/24 02:00 Room Air 06/12/24 22:48 06/12/24 22:46 Room Air Laboratory Results Laboratory Results - last 24 hr 06/11/24 06/12/24 06/12/24 14:04 10:57 12:35 WBC RBC Hgb Hct MCV MCH MCHC RDW Std Deviation RDW Coeff of Farhad Plt Count MPV Sodium Potassium Chloride Carbon Dioxide Anion Gap BUN Creatinine Est Cr Clr Drug Dosing eGFR BUN/Creatinine Ratio Glucose POC Glucose 172 H Calcium Troponin I High Sens 68.1 H* D Blood Type O Positive Antibody Screen NEGATIVE Crossmatch See Detail 06/12/24 06/12/24 06/12/24 15:53 19:02 19:51 WBC RBC Hgb Hct MCV MCH MCHC RDW Std Deviation RDW Coeff of Farhad Plt Count MPV Sodium Potassium Chloride Carbon Dioxide Anion Gap BUN Creatinine Est Cr Clr Drug Dosing eGFR BUN/Creatinine Ratio Glucose POC Glucose 141 H 164 H Calcium Troponin I High Sens 66.5 H* Blood Type Antibody Screen Crossmatch 06/13/24 06/13/24 05:56 08:09 WBC 3.66 L RBC 2.81 L Hgb 8.6 L Hct 26.6 L MCV 94.7 MCH 30.6 MCHC 32.3 RDW Std Deviation 64.1 H RDW Coeff of Farhad 18.4 H Plt Count 159 MPV 9.6 Sodium 141 Potassium 3.9 Chloride 106 Carbon Dioxide 27 Anion Gap 8 BUN 39 H Creatinine 1.92 H Est Cr Clr Drug Dosing 49.3 eGFR 37.24 BUN/Creatinine Ratio 20.3 H Glucose 115 H POC Glucose 125 H Calcium 9.0 Troponin I High Sens Blood Type Antibody Screen Crossmatch PG Care Time/CCT Total # of Minutes Spent Total Time Spent with Patient: Total time spent is greater than 50% in coordination of care (as documented) at patient's floor/unit and/or counseling patient: Coding Level of Care Code 28753 SUB INP/OBS CARE 3/50MIN Diagnoses CKD (chronic kidney disease), stage III N18.3 Symptomatic anemia D64.9 Cardiomyopathy I42.9 Atrial flutter, unspecified type I48.92 Atrial flutter type: unspecified (4) Atrial flutter Atrial flutter type: unspecified Qualified Code(s): I48.92 - Unspecified atrial flutter
[2024-06-13] MEDS: SODIUM CHLORIDE 0.9% 100 ML IV PRN (12:02)
[2024-06-13 13:37] LABS: Hematocrit (blood only) 30.8 % (42.0-52.0); Hemoglobin 9.7 g/dl (14.0-18.0); Mean Corpuscular Hemoglobin 29.6 pg (25.0-34.0); Mean Corpuscular Hgb Conc 31.5 g/dL (32.0-36.0); Mean Corpuscular Volume 93.9 fL (80.0-100.0); Mean Platelet Volume 9.7 fL (9.4-12.4); Platelet Count 159 K/uL (130-400); RDW Coefficient of Variation 18.6 % (11.5-14.5); RDW Standard Deviation 63.5 fL (36.4-46.3); Red Blood Count 3.28 M/uL (4.70-6.10); White Blood Count 3.95 K/ul (4.8-10.8)
[2024-06-14 06:43] LABS: Hematocrit (blood only) 29.3 % (42.0-52.0); Hemoglobin 9.4 g/dl (14.0-18.0); Mean Corpuscular Hemoglobin 30.2 pg (25.0-34.0); Mean Corpuscular Hgb Conc 32.1 g/dL (32.0-36.0); Mean Corpuscular Volume 94.2 fL (80.0-100.0); Mean Platelet Volume 9.8 fL (9.4-12.4); Platelet Count 169 K/uL (130-400); RDW Coefficient of Variation 18.5 % (11.5-14.5); RDW Standard Deviation 62.9 fL (36.4-46.3); Red Blood Count 3.11 M/uL (4.70-6.10); White Blood Count 3.58 K/ul (4.8-10.8)
[2024-06-14 07:12] LABS: BUN Creatinine Ratio 21.6 (10-20); Calcium 9.5 mg/dl (8.6-10.3); Creatinine Clr Calc Pharmacy 41.9 ml/min; Potassium 3.9 mmol/L (3.5-5.1)
--- NOTE | 2024-06-14 07:27 | Hospitalist Progress Note ---
Date of Service June 14, 2024 Assessment & Plan (1) Anemia of chronic renal failure, stage 3 (moderate): Plan: #Symptomatic Anemia #Anemia 2/2 CKD3a and iron Longstanding history of anemia - likely due to iron deficiency and anemia of chronic disease with CKD IIIa. GI workup without obvious cause. Follows with hematology. Patient has had multiple blood transfusions. Patient with SOB and tachycardia prompting ED eval. Ordered 1 unit in the ED for hemoglobin of 7.8. CKD3a - follows with nephrology. On EPO therapy. Iron profile: within normal limits, mildly low transferrin % but as it is below 20%, venofer 200mg IV given 06/12/24 transfusion threshold < 9: received 1 unit 06/13/24: 9.7 -> 9.4, no lightheadedness, dizziness, significant SOB Stool guaic POSITIVE Nephrology following, appreciate recs: Received erythropoietin 06/12/24 AM (2) Acute kidney injury superimposed on stage 3a chronic kidney disease: Plan: 06/14/24: creatinine 1.92 -> 2.27; baseline 1.8 Nephrology following, appreciate recs: Encouraging increased oral fluid intake as tolerated Repeat BMP 2pm (3) Positive fecal occult blood test: Plan: 06/13/24 positive, likely due to slow GI bleed, could otherwise be falsely positive due to iron supplementation - Hbg 9.7 -> 9.4 over the past day and without significant SOB, lightheadedness, dizziness - consider capsule endoscopy as prior study was not ideal -> capsule endoscopy as an outpatient - ?CBC at 2pm while obtaining BMP (4) Atrial flutter: Plan: Did receive rate control medications in the ED for a fib/flutter. Elevated rate likely compensatory for anemia. Improving with transfusions. Continue metoprolol tartrate 75mg BID Continue monitoring on tele Echo 06/12/24: LVEF 40-45%, severe inferior wall hypokinesis, moderate mitral and tricuspid regurgitation, IVC moderately dilated Will hold off on anticoagulation due to positive stool guaic, capsule endoscopy as an outpatient (5) Diabetic ulcer of left foot: Plan: Currently being treated with ampicillin and Bactrim. Continue therapy while inpatient with formulary substitutions. abx x 14 days, end 06/17 wound nurse consulted (6) Diabetes mellitus, type 2: Plan: Patient on insulin outpatient. They monitor average BSG with fructosamine - he is at goal. Basal 35 units SQ nightly with bolus meal coverage. Goal to decrease basal to 20 units nightly with SSI, goal BSG 120-160 per outpatient recommendations. (7) CAD, multiple vessel: Plan: Patient with significant cardiac history. CABG x 5. PAD with several stent placements. On metoprolol, clopidogrel, statin therapy. 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 Echo 06/12/24: LVEF 40-45%, severe inferior wall hypokinesis, moderate mitral and tricuspid regurgitation, IVC moderately dilated Otherwise no signs of fluid overload at present. Continue Imdur, losartan, Bumex, metoprolol, nitro PRN, statin therapy, and Plavix. (8) Elevated troponin: Plan: Likely demand ischemia, currently mild SOB when walking around room - peaked 3:30am at 115 -> 97.3 (9) Symptomatic anemia: Plan: See above Plan NOEMY - CPAP while inpatient Depression - continue sertraline Continue supplements/vitamins Code status: DNR/DNI DVT ppx: SCDs, on Plavix FENGI: Heart healthy, carb consistent Dispo: PCU/Tele Admission and Anticipated Discharge Date Admission Date: June 11, 2024 Supervising Physician Co-Signing Physician Notes Attending attestation Pt seen and examined in concert with Dr. Alba. In agreement with the documented findings as noted in the resident documentation with any exceptions or additions as noted here. Resting comfortably in chair at bedside without chest pain, palpitations, lightheadedness or fatigue. On examination, S1/S2 nl no MCG. CTAB. Abd NT/ND BS+ve. 1+ pitting edema to the knee CKDIIIa with escalating creatinine - nephrology consult - Anemia, multifactorial - chronic disease w/ multiple transfusion hx, +ve guaiac - s/p 3 UPRBC. Trend CBC daily. Hematology reports no further w/u rec'd re: anemia. Consider outpatient repeat capsule endoscopy. Diabetic ulcer, left foot, POA - Else see resident documentation as noted. Subjective [[Eduardo was seen and evaluated at bedside this AM, sitting comfortably in his chair. Receiving blood during encounter. Endorses he slept well overnight, notes his SOB, dizziness, and palpitations continue to be improved from prior. Informed pt that his troponin is now downtrending and EKG was likely atrial flutter but HR has resolved. Denies any trouble with BM or diet, tolerating well. Informed pt that his hemoglobin is relatively stable, but occult blood was positive. Additionally told about the rise in his creatinine- encouraged to increase oral fluid intake but would also benefit from IVF.]] Review of Systems Review of Systems: no fever, body aches, chills, sweats, headache, vision changes, chest pain Physical Exam Physical Exam: [[Gen: A&Ox3, no apparent acute distress HEENT: NC/AT, EOM intact, anicteric sclerae Resp: clear to auscultation b/l. no wheezing/rales/rhonchi, no increased work of breathing CV: regular rate and rhythm, no m/r/g, - pulses: 2+ carotid b/l, 2+ R radial ar jose daniel, impalpable LE pulses due to chronic PAD GI/Abd: +BS, soft, non-tender to palpation MSK: b/l LE erythema and 1+ pitting edema with mild tenderness to palpation, otherwise no obvious deformities, 5/5 strength in ext - L lateral 5th metatarsal superficial u lcer with bandage applied, tender to palpation Skin: as noted above on LE Neuro: no facial droop, speech intact, diminished sensation distally on b/l LE Psych: appropriate mood and affect]] Results & Data Results & Data Vital Signs (Past 12 Hours) Vital Signs Temp Pulse Pulse Resp BP Pulse Ox O2 Del Method 06/14/24 03:28 36.7 C 91 H 20 119/63 97 Room Air 06/13/24 23:00 84 06/13/24 22:36 36.5 C 90 18 138/69 98 Room Air 06/13/24 20:00 Room Air 06/13/24 19:33 36.6 C 90 18 131/75 95 Room Air (1) Anemia of chronic renal failure, stage 3 (moderate) Chronic kidney disease stage 3 subtype: stage 3a (GFR 45-59) Qualified Code(s): N18.31 - Chronic kidney disease, stage 3a; D63.1 - Anemia in chronic kidney disease (4) Atrial flutter Atrial flutter type: unspecified Qualified Code(s): I48.92 - Unspecified atrial flutter (5) Diabetic ulcer of left foot Diabetes mellitus type: type 2 Diabetic foot ulcer location: midfoot Non- pressure ulcer stage: with fat layer exposed Qualified Code(s): E11.621 - Type 2 diabetes mellitus with foot ulcer; L97.422 - Non-pressure chronic ulcer of left heel and midfoot with fat layer exposed (6) Diabetes mellitus, type 2 Chronic kidney disease stage: stage 3 (moderate) Chronic kidney disease stage 3 subtype: stage 3a (GFR 45-59) Diabetes mellitus complication detail: with chronic kidney disease Diabetes mellitus complication status: with kidney complications Diabetes mellitus skilled nursing insulin use: with rat exterminator use Qualified Code(s): E11.22 - Type 2 diabetes mellitus with diabetic chronic kidney disease; N18.31 - Chronic kidney disease, stage 3a; Z79.4 - longterm (current) use of insulin
[2024-06-14] MEDS: DOCUSATE SODIUM 100 MG CAP PO PRN (08:07)
--- NOTE | 2024-06-14 10:45 | Nephrology Progress Note ---
Date of Service June 14, 2024 Assessment & Plan (1) CKD (chronic kidney disease), stage III: Plan: Kidney function relatively stable. Creatinine slightly increased this AM -- likely reflective of hemodynamic changes. A repeat creatinine has been ordered for this afternoon. Electrolytes normal. Volume status acceptable. Medications are appropriate for kidney function. If kidney function is stable on follow up testing, outpatient nephrology follow up would be acceptable. No changes in home medications, check labs next week. Follow up with me in the [facility] [place] nephrology clinic next week. (2) Symptomatic anemia: Plan: 2 unit PRBC transfusion support provided on admission. Additional 1 unit being provided yesterday. Venofer 200 mg IV provided. . Epogen 12007 units provided /. Consider repeat capsule endoscopy as outpatient. Hematology consultation appreciated. (3) Cardiomyopathy: Plan: Volume status controlled. (4) Atrial flutter: Plan: Management per hospitalist team. Admission and Anticipated Discharge Date Admission Date: June 11, 2024 Subjective No acute events overnight. Eduardo is resting comfortably in bedside chair. He feels reasonably well. No melena or hematochezia. Appetite is good. No diarrhea or abdominal pain. He denies fluid retention or edema. He denies lightheadedness or dizziness this AM. No chest pains or palpitations. Review of Systems Review of Systems: All systems reviewed & are unremarkable except as noted in HPI & below Physical Exam Constitutional: well developed; no acute distress Eyes: + anicteric sclerae Neck: normal visual inspection Respiratory: normal respiratory effort, lungs clear to auscultation normal respiratory effort; no respiratory distress Cardiovascular: Rate/Rhythm: regular rate and + irregularly irregular Heart Sounds: normal S1 and normal S2 Extremities: no edema Musculoskeletal: Extremities: no cyanosis and no clubbing Skin: no jaundice Psychiatric: A+Ox3, euthymic affect Results & Data Vital Signs (Past 12 Hours) Vital Signs Temp Pulse Pulse Resp BP Pulse Ox O2 Del Method 06/14/24 07:33 36.6 C 83 20 132/80 96 Room Air 06/14/24 05:45 86 06/14/24 03:28 36.7 C 91 H 20 119/63 97 Room Air 06/13/24 23:00 84 Laboratory Results Laboratory Results - last 24 hr 06/11/24 06/13/24 06/13/24 14:04 11:22 13:22 WBC 3.95 L RBC 3.28 L Hgb 9.7 L Hct 30.8 L MCV 93.9 MCH 29.6 MCHC 31.5 L RDW Std Deviation 63.5 H RDW Coeff of Farhad 18.6 H Plt Count 159 MPV 9.7 Sodium Potassium Chloride Carbon Dioxide Anion Gap BUN Creatinine Est Cr Clr Drug Dosing eGFR BUN/Creatinine Ratio Glucose POC Glucose 186 H Calcium Stool Occult Bld Scrn Crossmatch See Detail 06/13/24 06/13/24 06/13/24 16:21 19:47 Unknown WBC RBC Hgb Hct MCV MCH MCHC RDW Std Deviation RDW Coeff of Farhad Plt Count MPV Sodium Potassium Chloride Carbon Dioxide Anion Gap BUN Creatinine Est Cr Clr Drug Dosing eGFR BUN/Creatinine Ratio Glucose POC Glucose 165 H 167 H Calcium Stool Occult Bld Scrn Positive A Crossmatch 06/14/24 06/14/24 05:59 07:31 WBC 3.58 L RBC 3.11 L Hgb 9.4 L Hct 29.3 L MCV 94.2 MCH 30.2 MCHC 32.1 RDW Std Deviation 62.9 H RDW Coeff of Farhad 18.5 H Plt Count 169 MPV 9.8 Sodium 140 Potassium 3.9 Chloride 105 Carbon Dioxide 26 Anion Gap 9 BUN 49 H Creatinine 2.27 H D Est Cr Clr Drug Dosing 41.9 eGFR 30.46 BUN/Creatinine Ratio 21.6 H Glucose 141 H POC Glucose 154 H Calcium 9.5 Stool Occult Bld Scrn Crossmatch PG Care Time/CCT Total # of Minutes Spent Total Time Spent with Patient: Total time spent is greater than 50% in coordination of care (as documented) at patient's floor/unit and/or counseling patient: Coding Level of Care Code 40487 SUB INP/OBS CARE 3/50MIN Diagnoses CKD (chronic kidney disease), stage III N18.3 Symptomatic anemia D64.9 Cardiomyopathy I42.9 Atrial flutter, unspecified type I48.92 Atrial flutter type: unspecified (4) Atrial flutter Atrial flutter type: unspecified Qualified Code(s): I48.92 - Unspecified atrial flutter
[2024-06-14 15:21] LABS: BUN Creatinine Ratio 21.7 (10-20); Calcium 9.5 mg/dl (8.6-10.3); Creatinine Clr Calc Pharmacy 37.6 ml/min; Potassium 4.5 mmol/L (3.5-5.1)
[2024-06-14 15:27] VITALS: BP 130/75; RESP 20; TEMP 98.3; O2SAT 98
--- NOTE | 2024-06-14 16:54 | Discharge Summary ---
Date of Service June 14, 2024 Admission HPI Per Admitting Provider 69 y/o with a PMHx of CAD s/p CABG x 5 in 2008, PAD with multiple prior stent placements, IDDM, CKDIII, HLD, NOEMY on CPAP, and anemia here for shortness of breath and heart palpitations. Patient presents with about a week of shortness of breath and heart palpitations. He can feel his heart racing and states that he can see it pounding in his chest. No discrete chest pain. No fevers or chills. No blood in the urine or stool. No difficulty with urination. No nausea or vomiting. Has a foot wound that he is on Bactrim and Ampicillin until end date 06/17. Does take doxycycline 100 mg daily as well. Patient with CKD III follows with Dr. Silva. Anemia presumed in the setting of iron deficiency and CKDIII. Patient does also follow with hematology. He is on EPO therapy along with vitamin supplementation and occasional iron infusions. Was to have his next EPO shot today. Had GI workup as well without obvious bleeding. Does have dark stools and prior heme positive stools, but he is on iron therapy. Not presumed to be due to GI causes. He did not take his home meds this morning. Admission Exam Per Admitting Provider Gen: chronically appearing patient in NAD HEENT: AT NC MMM pale skin Resp: CTAB no wheezing no increased work of breathing CV: tachycardic, regular rhythm, no m/r/g, clinically well perfused Abd: soft, non-tender, non-distended MSK: no obvious deformities Skin: no rashes or bruising Neuro: alert and oriented Psych: appropriate mood and affect Principal Diagnosis symptomatic anemia Discharge Exam Gen: A&Ox3, no apparent acute distress HEENT: NC/AT, EOM intact, anicteric sclerae Resp: clear to auscultation b/l. no wheezing/rales/rhonchi, no increased work of breathing CV: regular rate and rhythm, no m/r/g, - pulses: 2+ carotid b/l, 2+ R radial artery, impalpable LE pulses due to chronic PAD GI/Abd: +BS, soft, non-tender to palpation MSK: b/l LE erythema and 1+ pitting edema with mild tenderness to palpation, otherwise no obvious deformities, 5/5 strength in ext - L lateral 5th metatarsal superficial ulcer with bandage applied, tender to palpation Skin: as noted above on LE Neuro: no facial droop, speech intact, diminished sensation distally on b/l LE Psych: appropriate mood and affect Discharge Data Allergies Allergy/AdvReac Type Severity Reaction Status Date / Time animal dander Allergy Intermediate Hives Verified 06/06/24 14:58 bacitracin Allergy Intermediate RASH Verified 06/06/24 14:58 iodine Allergy Intermediate RASH-AVOIDS Verified 06/06/24 14:58 SHELLFISH latex Allergy Intermediate contact Verified 06/06/24 14:58 dermatitis neomycin Allergy Intermediate RASH Verified 06/06/24 14:58 polymyxin B Allergy Intermediate RASH Verified 06/06/24 14:58 gabapentin Allergy Unknown PER RECORDS Verified 06/06/24 14:58 pregabalin Allergy Unknown PER RECORDS Verified 06/06/24 14:58 adhesive AdvReac Mild ALMOST ALL Verified 06/06/24 14:58 GAUZE BANDAGES GIVE HIM A POISON TRISTAN LIKE RASH prednisone AdvReac Mild IRRITABLE Verified 06/06/24 14:58 Consultations 06/11/24 13:47 ED Decision to Admit Stat 06/11/24 17:56 Consult Nephrology Routine 06/12/24 10:29 Consult Hematology Routine Hospital Course (1) Anemia of chronic renal failure, stage 3 (moderate): #Symptomatic Anemia #Anemia 2/2 CKD3a and iron Longstanding history of anemia - likely due to iron deficiency and anemia of chronic disease with CKD IIIa. GI workup without obvious cause. Follows with hematology. Patient has had multiple blood transfusions. Patient with SOB and tachycardia prompting ED eval. Ordered 1 unit in the ED for hemoglobin of 7.8. CKD3a - follows with nephrology. On EPO therapy. Iron profile: within normal limits, mildly low transferrin % but as it is below 20%, venofer 200mg IV given 06/12/24 transfusion threshold <9: received 1 unit 06/13/24: 9.7 -> 9.4, some lightheadedness, dizziness, SOB with exertion but has not gotten worse over past couple days Nephrology following, appreciate recs: follow up with Dr. Silva in outpatient nephrology clinic next week, HOLD your losartan until further assessed by Dr. Silva Received erythropoietin 06/12/24 AM (2) Acute kidney injury superimposed on stage 3a chronic kidney disease: 06/14/24: creatinine 2.27 -> 2.53; baseline 1.8 Nephrology following: see Dr. Silva in outpatient clinic next week; HOLD losartan until further assessed by Dr. Silva next week Encouraging increased oral fluid intake as tolerated (3) Positive fecal occult blood test: 06/13/24 positive, likely due to slow GI bleed, could otherwise be falsely positive due to iron supplementation - Hbg 9.7 -> 9.4 over the past day, on exertion no change in mild SOB, lightheadedness, dizziness, but significantly improved since coming in - consider capsule endoscopy as prior study was not ideal -> capsule endoscopy as an outpatient (4) Atrial flutter: Did receive rate control medications in the ED for a fib/flutter. Elevated rate likely compensatory for anemia. Improving with transfusions. Continue metoprolol tartrate 75mg BID outpatient Echo 06/12/24: LVEF 40-45%, severe inferior wall hypokinesis, moderate mitral and tricuspid regurgitation, IVC moderately dilated Will hold off on anticoagulation due to positive stool guaic, capsule endoscopy as an outpatient (5) Diabetic ulcer of left foot: Continue ampicillin and Bactrim abx x 14 days, end 06/17/24 (6) Diabetes mellitus, type 2: Patient on insulin outpatient. They monitor average BSG with fructosamine - he is at goal. Basal 35 units SQ nightly with bolus meal coverage. Goal to decrease basal to 20 units nightly with SSI, goal BSG 120-160 per outpatient recommendations. (7) CAD, multiple vessel: Patient with significant cardiac history. CABG x 5. PAD with several stent placements. On metoprolol, clopidogrel, statin therapy. 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 Echo 06/12/24: LVEF 40-45%, severe inferior wall hypokinesis, moderate mitral and tricuspid regurgitation, IVC moderately dilated Otherwise no signs of fluid overload at present. Continue Imdur, losartan, Bumex, metoprolol, nitro PRN, statin therapy, and Plavix. (8) Elevated troponin: Likely demand ischemia, currently mild SOB when walking around room - peaked 3:30am at 115 -> 97.3 (9) Symptomatic anemia: See above Plan NOEMY - CPAP while inpatient Depression - continue sertraline Continue supplements/vitamins Code status: DNR/DNI DVT ppx: SCDs, on Plavix FENGI: Heart healthy, carb consistent Dispo: PCU/Tele Total Time Total Time Spent Total Time Spent (In Minutes): 45 Discharge Plan Discharge Items Patient Disposition: Home - Self-Care Reason For Visit: ANEMIA, A FIB Discharge Diagnosis: symptomatic anemia Activity: Per Instructions section Non-emergency contact: 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 You had a hemoglobin of 7.8, prompting blood transfusion. You were given another unit. Your hemoglobin was >9 for a day before going back down to 8.6 on 06/13/24 morning, prompting another unit to be transfused. You have since maintained hemoglobin >9 and with a lesser extent of your symptoms of shortness of breath and lightheadedness upon exertion. Your creatinine, however, has increased from 1.92 -> 2.53. Your credit consultant, Dr. Silva, is okay with this as long as we hold your home losartan and see Dr. Silva in the nephrology clinic for followup next week. Additionally, your heartrate has been stable on metoprolol tartrate 75mg BID, which you may continue outpatient. Continue taking ampicillin and Bactrim through 06/17/24 for R foot ulcer. Please follow up with Dr. Silva in clinic next week and additionally scheduled close followup with your PCP, Dr. Jackson. Don't hesitate to call 911 if you start having significant shortness of breath, chest pain, lightheadedness, dizziness, or obvious signs of bleeding. Pending Studies at Discharge: No Stand-Alone Forms: My [employer], Smoking Cessation Medications and DC Order Prescriptions: New metoprolol tartrate 25 mg Tablet 75 mg PO BID 30 Days Qty: 180 0RF Continued famotidine 20 mg tablet 20 mg PO BID Qty: 180 3RF Rx Instructions: 1200 & 0000 (DME) lancets [OneTouch Delica Lancets] 33 gauge misc See Rx Instructions .Route Qty: 400 3RF Rx Instructions: Tests 4 times daily (DME) OneTouch Ultra Test Strip See Rx Instructions .ROUTE .MEDSUPPLY Qty: 500 3RF Rx Instructions: test 5 times daily azelastine 137 mcg (0.1 %) aerosol,spray 1 - 2 spray intranasal HS Qty: 30 5RF Rx Instructions: USE 1-2 SPRAYS EACH NOSTRIL AT BEDTIME.; administer into each nostril insulin glargine [Lantus Solostar U-100 Insulin] 100 unit/mL (3 mL) insulin pen 35 unit subcut HS Qty: 30 3RF Patient Comments: 17 units atorvastatin 80 mg tablet 80 mg PO QPM Qty: 90 3RF tramadol 50 mg tablet 50 mg PO TID PRN (Reason: pain) Qty: 90 5RF bumetanide 2 mg tablet 4 mg PO BID Qty: 360 2RF Rx Instructions: 1200 & 0000 clopidogrel 75 mg tablet 75 mg PO QDL Qty: 90 3RF Patient Comments: on hold until after procedure isosorbide mononitrate 60 mg tablet extended release 24 hr 60 mg PO QAM Qty: 90 3RF sertraline 100 mg tablet 200 mg PO DAILY Qty: 180 3RF insulin aspart U-100 [Novolog FlexPen U-100 Insulin] 100 unit/mL (3 mL) insulin pen 35 unit subcut TIDM Qty: 45 5RF Rx Instructions: 35 units with meals and 10 units in QAM and HS ferrous sulfate 325 mg (65 mg iron) tablet,delayed release (DR/EC) 325 mg PO BID Qty: 180 3RF Rx Instructions: 1200 & 0000 zinc acetate 50 mg (zinc) capsule 50 mg PO DAILY biotin 1 mg capsule 1 mg PO QDL chromium picolinate 1,000 mcg tablet 1,000 mcg PO QDL nitroglycerin 0.4 mg tablet, sublingual 0.4 mg SL USEASDIRECTD PRN (Reason: chest pain) Patient Comments: EVERY 5 MINUTES FOR UP TO 3 DOSES PRN FOR CHEST PAIN. CALL 911 IF PAIN PERSISTS clindamycin phosphate 1 % lotion 1 applic topical DAILY Qty: 60 4RF Rx Instructions: Apply to the affected areas after showering daily docusate sodium [Colace] 100 mg capsule 100 mg PO BID PRN (Reason: Constipation) multivitamin tablet 1 tab PO QDL PreserVision AREDS [id number] capsule 1 cap PO BID Rx Instructions: 1200 & 0000 acetaminophen [Tylenol Arthritis Pain] 650 mg tablet extended release 650 mg PO TID lidocaine [Aspercreme (lidocaine)] 4 % adhesive patch,medicated 1 patch topical DAILY PRN (Reason: pain) Qty: 10 0RF fluocinonide 0.05 % cream 1 applic topical BID Qty: 60 0RF Rx Instructions: Apply to areas of the legs twice daily for up to 10 days as needed for flarin g. doxycycline hyclate 100 mg tablet 100 mg PO DAILY Qty: 30 5RF Rx Instructions: Take with food sodium ferric gluconat-sucrose [Ferrlecit] 62.5 mg/5 mL solution 250 mg IV DAILY Aranesp (in polysorbate) 200 mcg/0.4 mL syringe 200 mcg subcut ONCE Qty: 0.4 0RF Rx Instructions: unable to verify cholecalciferol (vitamin D3) [Vitamin D3] 125 mcg (5,000 unit) Tablet 125 mcg PO TID Rx Instructions: 1200 - 1800 - 0000 magnesium oxide 500 mg Tablet 500 mg PO TID Rx Instructions: 1200 - 1800 - 0000 omega-3 fatty acids 1,000 mg Capsule 1,000 mg PO QDL (DME) blood sugar diagnostic Strip .ROUTE .MEDSUPPLY Rx Instructions: Test blood sugars 5 times a day (DME) pen needle, diabetic [BD Ultra-Fine Eli Pen Needle] 32 gauge x 5/32" needle .ROUTE .MEDSUPPLY Rx Instructions: Use four times daily Aranesp (in polysorbate) 200 mcg/mL solution 200 mcg subcut UD Rx Instructions: unable to verify 200 mcg subcutaneously every other week; hold for Hgb >11; spironolactone 25 mg tablet 12.5 mg PO DAILY Rx Instructions: Take 1/2 (one-half) tablet by mouth once daily Triphrocaps 1 mg capsule 1 cap PO DAILY Rx Instructions: Take 1 capsule by mouth once daily ampicillin 500 mg capsule 500 mg PO TID 14 Days Qty: 42 0RF Rx Instructions: continue taking through 06/17/24, total of 14 day of abx sulfamethoxazole-trimethoprim [Bactrim] 400-80 mg tablet 1 tab PO BID 14 Days Qty: 28 0RF Rx Instructions: continue taking through 06/17/24, total of 14 day abx Held losartan 50 mg tablet 50 mg PO QAM Qty: 90 3RF Hold Instructions: Resume on 06/21/24. hold until further evaluation at nephrology appointment next week with Dr. Silva. Discontinued metoprolol tartrate 50 mg tablet 50 mg PO BID Qty: 180 3RF Discharge Orders: Discharge Order (Routine); Ordered 06/14/24 Ordered By: Maurice Gant/Other Patient Handouts: Diabetes: Keeping Feet Healthy, Anemia and Kidney Disease, Diabetes and Kidney Disease, Acute Kidney Failure Dc, Diabetes and PAD, Eating Heart-Healthy Foods Admission Data Admit Date/Time: 06/11/24 15:12 Attending Provider: Dillon He Admit Provider: Rosalinda Johns Primary Care Provider: Bartolo Jackson V. Other Providers: Robert Hernández; Han Silva; Bill Irby Supervising Physician Co-Signing Physician Notes Attending attestation Pt seen and examined in concert with Dr. Alba. In agreement with the documented findings as noted in the resident documentation with any exceptions or additions as noted here. Resting comfortably in chair at bedside without chest pain, palpitations, lightheadedness or fatigue. On examination, S1/S2 nl no MCG. CTAB. Abd NT/ND BS+ve. 1+ pitting edema to the knee CKDIIIa with escalating creatinine - nephrology consult - will continue present course of care. Hold losartan on discharge with close nephrologic follow up. Anemia, multifactorial - chronic disease w/ multiple transfusion hx, +ve guaiac - s/p 3 UPRBC. Hematology reports no further w/u rec'd re: anemia. Consider outpatient repeat capsule endoscopy. Consider repeat CBC at follow up Diabetic ulcer, left foot, POA - continue abx to complete course Else see resident documentation as noted. Total attending physician time spent with this patient's care on the day of discharge: 35 minutes. Resident Activity Tracking Resident Involvement: Resident Care Provided Care Provided: Adult Hospital Medicine
[2024-06-14 18:03] VITALS: PULSE 87
== END 2024-06-14 19:12 | disposition home or self-care (01) | DRG 292 ==
LOC: ED 12:37 → EDINP 15:12 → 2S 17:22